=== PATIENT | female | born 1950 | race Caucasian/White ===

== ENCOUNTER 2017-01-10 10:31 | Emergency (ER) | payer MEDICARE ==
[2017-01-10 10:40] VITALS: BP 123/58; PULSE 105; RESP 18; TEMP 98.7
--- NOTE | 2017-01-10 11:06 | ED ---
Psych HPI - General Chief Complaint: Psychiatric Symptoms Stated Complaint: SUICIDAL, CONFUSION Time Seen by Provider: 01/10/17 10:52 Source: patient, RN notes reviewed Mode of arrival: ambulatory - History of Present Illness Initial Comments: 66 yo female presents to the emergency Department chief complaint of suicidal thoughts. Patient states she suffers from dementia. Patient states that about 3 weeks ago she was diagnosed with diabetes. Patient states since then she's noticed a decline in her mood. Patient states she's been more depression is not been doing her daily living. Patient states she has not been showering but she has been eating. Patient states that she checked her glucose this morning was 171. Patient states that she does have suicidal thoughts that come to her head and the wave-type sensation. Patient states she isn't having specific plan at this time. Patient does admit to history of hospitalization when she was 33 years old. Patient states that she is concerned due to her thoughts so she thought that she should be evaluated. Patient denies any recent fever, chills, shortness of breath, chest pain, back pain, abdominal pain, nausea vomiting, numbness or tingling, dysuria or hematuria, constipation or diarrhea, headaches or visual changes, or any other current symptoms. - Related Data Home Medications Medication Instructions Recorded Confirmed Citalopram Hydrobromide 40 mg PO QAM 02/02/16 01/10/17 [Citalopram HBr] Loratadine [Claritin] 10 mg PO DAILY 02/02/16 01/10/17 Budesonide [Pulmicort Flexhaler] 2 puff INHALATION RT-BID 01/10/17 01/10/17 Fluticasone Nasal [place] [Flonase 1 - 2 spray EA NOSTRIL DAILY PRN 01/10/1701/10 Nasal [place]] Glimepiride [Amaryl] 1 mg PO AC-BRKFST 01/10/17 01/10/17 LORazepam [Ativan] 0.5 mg PO QID PRN 01/10/17 01/10/17 Lisinopril [Prinivil] 5 mg PO DAILY 01/10/17 01/10/17 Montelukast Sodium [Singulair] 10 mg PO HS 01/10/17 01/10/17 Naproxen [Naprosyn] 500 mg PO Q12HR 01/10/17 01/10/17 metFORMIN HCL ER [Glucophage Xr] 1,000 mg PO DAILY 01/10/17 01/10/17 risperiDONE [RisperDAL] 1 mg PO HS 01/10/17 01/10/17 Allergies Allergy/AdvReac Type Severity Reaction Status Date / Time metronidazole [From Flagyl] Allergy Rash/Hives Verified 01/10/17 12:49 Sulfa (Sulfonamide Allergy Rash/Hives Verified 01/10/17 12:49 Antibiotics) Review of Systems ROS Statement: Those systems with pertinent positive or pertinent negative responses have been documented in the HPI. ROS Other: All systems not noted in ROS Statement are negative. Past Medical History Past Medical History: Asthma, Diabetes Mellitus, GERD/Reflux, Mitral Valve Prolapse (MVP) History of Any Multi-Drug Resistant Organisms: None Reported Past Surgical History: Cholecystectomy Additional Past Surgical History / Comment(s): Tumor removed from tibia (BENIGN) . Past Anesthesia/Blood Transfusion Reactions: No Reported Reaction Past Psychological History: Anxiety, Depression Smoking Status: Former smoker Past Alcohol Use History: None Reported Past Drug Use History: None Reported General Exam Limitations: no limitations General appearance: alert, in no apparent distress Neck exam: Present: normal inspection. Absent: tenderness, meningismus, lymphadenopathy Respiratory exam: Present: normal lung sounds bilaterally. Absent: respiratory distress, wheezes, rales, rhonchi, stridor Cardiovascular Exam: Present: regular rate, normal rhythm, normal heart sounds. Absent: systolic murmur, diastolic murmur, rubs, gallop, clicks GI/Abdominal exam: Present: soft, normal bowel sounds. Absent: distended, tenderness, guarding, rebound, rigid Neurological exam: Present: alert, oriented X3 Psychiatric exam: Present: depressed, suicidal ideation. Absent: homicidal ideation Skin exam: Present: warm, dry, intact, normal color. Absent: rash Course Vital Signs 01/10/17 10:37 Temperature 98.7 F Pulse Rate 105 H Respiratory 18 Rate Blood Pressure 123/58 O2 Sat by Pulse 96 Oximetry Medical Decision Making - Medical Decision Making 66-year-old female presents to the emergency Department chief complaint of suicidal thoughts and depression. At this time the patient does not appear to be suffering from a acute medical emergencies. At this time the patient is cleared to be evaluated by psychiatry. While here the patient did not have any suicidal thoughts patient denies a plan. She states they come and go in waves. At this time psychiatry evaluated her and they do recommend close follow-up and they have an appointment. At this time they did discuss return parameters and all questions. The patient and family stated they understood and they are in agreement with this plan. At this time they will be discharged home. The patient does contract to safety. - Lab Data Lab Results 01/10/17 Range/Units 10:57 Urine Opiates Screen Not Detected (NotDetected) Ur Oxycodone Screen Not Detected (NotDetected) Urine Methadone Screen Not Detected (NotDetected) Ur Propoxyphene Screen Not Detected (NotDetected) Ur Barbiturates Screen Not Detected (NotDetected) U Tricyclic Antidepress Not Detected (NotDetected) Ur Phencyclidine Scrn Not Detected (NotDetected) Ur Amphetamines Screen Not Detected (NotDetected) U Methamphetamines Scrn Not Detected (NotDetected) U Benzodiazepines Scrn Detected H (NotDetected) Urine Cocaine Screen Not Detected (NotDetected) U Marijuana (THC) Screen Not Detected (NotDetected) Disposition Clinical Impression: Depression Disposition: HOME SELF-CARE Condition: Stable Instructions: Depression (ED) Additional Instructions: Please use medication as discussed. Please follow up with family doctor if symptoms have not improved over the next two days. Please return to the emergency room if your symptoms increase or worsen or for any other concerns. Referrals: Roman Mcfarlane MD [Primary Care Provider] - 1-2 days Time of Disposition: 12:57
== END 2017-01-10 13:06 | disposition home or self-care (01) ==
LOC: EC 10:31
DX: F32.9 Major depressive disorder, single episode, unspecified (principal); F41.9 Anxiety disorder, unspecified; J45.909 Unspecified asthma, uncomplicated; E11.9 Type 2 diabetes mellitus without complications; Z87.891 Personal history of nicotine dependence; Z79.51 Long term (current) use of inhaled steroids; Z79.84 Long term (current) use of oral hypoglycemic drugs; Z79.899 Other long term (current) drug therapy; Z88.1 Allergy status to other antibiotic agents; Z88.2 Allergy status to sulfonamides
CPT/HCPCS: 80306; 82075; 99284

== ENCOUNTER 2017-04-15 06:40 | Emergency (ER) | payer MEDICARE ==
--- NOTE | 2017-04-15 08:24 | ED ---
Allergic Reaction HPI - General Chief complaint: Allergic Reaction Stated complaint: Possible Med Reaction Time Seen by Provider: 04/15/17 07:30 Source: patient, family, RN notes reviewed Mode of arrival: ambulatory Limitations: no limitations - History of Present Illness Initial Comments: This is a 66-year-old female who presents with complaints of a possible ALLERGIC reaction. She was placed on Cymbalta 1 week ago and states she is definitely able eat much the past several days she's been sleeping all the time for the past several days complains of sweats palpitations and perhaps some slight shortness of breath. She denies any overt fevers or chills cough or phlegm production dysuria hematuria any overt abdominal pain. She also states she was taken off of BuSpar one week ago after being out for a month. She does states she is a partial program at [facility]. Complaint: allergic reaction - Related Data Home Medications Medication Instructions Recorded Confirmed Citalopram Hydrobromide 40 mg PO QAM 02/02/16 04/15/17 [Citalopram HBr] Budesonide [Pulmicort Flexhaler] 2 puff INHALATION RT-BID 01/10/17 04/15/17 LORazepam [Ativan] 0.5 mg PO TID 01/10/17 04/15/17 Montelukast Sodium [Singulair] 10 mg PO HS 01/10/17 04/15/17 Albuterol Sulfate [Proair 1 puff INHALATION RT-Q6H PRN 04/15/17 04/15/17 Respiclick] Calcium Carbonate/Vitamin D3 1 tab PO DAILY 04/15/17 04/15/17 [Caltrate 600 Plus D3 Tablet] Ezetimibe/Simvastatin [Vytorin 1 tab PO DAILY 04/15/17 04/15/17 10-20 mg Tablet] Ferrous Sulfate [Feosol] 325 mg PO DAILY 04/15/17 04/15/17 Omeprazole 20 mg PO DAILY 04/15/17 04/15/17 Triamcinolone Acetonide [Nasacort] 1 spray EA NOSTRIL DAILY 04/15/17 04/15/17 valACYclovir [Valtrex] 500 mg PO DAILY 04/15/17 04/15/17 Allergies Allergy/AdvReac Type Severity Reaction Status Date / Time metronidazole [From Flagyl] Allergy Rash/Hives Verified 04/15/17 08:27 Sulfa (Sulfonamide Allergy Rash/Hives Verified 04/15/17 08:27 Antibiotics) Review of Systems ROS Statement: Those systems with pertinent positive or pertinent negative responses have been documented in the HPI. ROS Other: All systems not noted in ROS Statement are negative. Past Medical History Past Medical History: Asthma, Diabetes Mellitus, GERD/Reflux, Mitral Valve Prolapse (MVP) History of Any Multi-Drug Resistant Organisms: None Reported Past Surgical History: Cholecystectomy Additional Past Surgical History / Comment(s): Tumor removed from tibia (BENIGN) . Past Anesthesia/Blood Transfusion Reactions: No Reported Reaction Past Psychological History: Anxiety, Depression Smoking Status: Former smoker Past Alcohol Use History: None Reported Past Drug Use History: None Reported General Exam - General Exam Comments Initial Comments: This is a well-developed well-nourished awake alert oriented 3 female Limitations: no limitations General appearance: alert, anxious Head exam: Present: atraumatic, normocephalic, normal inspection Eye exam: Present: normal appearance, PERRL, EOMI. Absent: scleral icterus, conjunctival injection, periorbital swelling ENT exam: Present: mucous membranes dry Neck exam: Present: normal inspection. Absent: tenderness, meningismus, lymphadenopathy Respiratory exam: Present: normal lung sounds bilaterally. Absent: respiratory distress, wheezes, rales, rhonchi, stridor Cardiovascular Exam: Present: regular rate, other (Occasional extrasystoles are noted) GI/Abdominal exam: Present: soft, normal bowel sounds. Absent: distended, tenderness, guarding, rebound, rigid Extremities exam: Present: normal inspection, full ROM, normal capillary refill. Absent: tenderness, pedal edema, joint swelling, calf tenderness Back exam: Present: normal inspection Neurological exam: Present: alert, oriented X3, CN II-XII intact Psychiatric exam: Present: normal affect, normal mood Skin exam: Present: warm, dry, intact, normal color. Absent: rash Course Vital Signs 04/15/17 04/15/17 07:32 09:29 Temperature 97.1 F L 98.0 F Pulse Rate 65 92 Respiratory 20 18 Rate Blood Pressure 157/87 154/80 O2 Sat by Pulse 99 98 Oximetry Medical Decision Making - Medical Decision Making I did discuss findings with the patient and her . Patient does appear to be somewhat dehydrated clinically. She feels improved after fluids. She'll be discharged to follow-up with her psychiatrist for reevaluation of the Cymbalta. This is a potential cause of the patient's sleeping. He is aware that. She will contact him the patient and her are in agreement with this. - Lab Data Result diagrams: 04/15/17 07:56 04/15/17 07:56 Lab Results 04/15/17 04/15/17 04/15/17 Range/Units 07:56 07:56 07:56 WBC 7.5 (3.8-10.6) k/uL RBC 5.13 (3.80-5.40) m/uL Hgb 14.3 (11.4-16.0) gm/dL Hct 45.1 (34.0-46.0) % MCV 87.9 (80.0-100.0) fL MCH 27.8 (25.0-35.0) pg MCHC 31.6 (31.0-37.0) g/dL RDW 14.7 (11.5-15.5) % Plt Count 370 (150-450) k/uL Neutrophils % 70 % Lymphocytes % 17 % Monocytes % 7 % Eosinophils % 2 % Basophils % 1 % Neutrophils # 5.2 (1.3-7.7) k/uL Lymphocytes # 1.3 (1.0-4.8) k/uL Monocytes # 0.6 (0-1.0) k/uL Eosinophils # 0.2 (0-0.7) k/uL Basophils # 0.1 (0-0.2) k/uL Hypochromasia Slight Sodium 140 (137-145) mmol/L Potassium 4.9 (3.5-5.1) mmol/L Chloride 103 (98-107) mmol/L Carbon Dioxide 23 (22-30) mmol/L Anion Gap 14 mmol/L BUN 19 H (7-17) mg/dL Creatinine 0.60 (0.52-1.04) mg/dL Est GFR (MDRD) Af Amer >60 (>60 ml/min/1.73 sqM) Est GFR (MDRD) Non-Af >60 (>60 ml/min/1.73 sqM) Glucose 130 H (74-99) mg/dL Calcium 9.8 (8.4-10.2) mg/dL Magnesium 1.8 (1.6-2.3) mg/dL Total Bilirubin 0.5 (0.2-1.3) mg/dL AST 42 H (14-36) U/L ALT 45 (9-52) U/L Alkaline Phosphatase 78 (38-126) U/L Total Creatine Kinase 94 (30-135) U/L CK-MB (CK-2) 1.7 (0.0-2.4) ng/mL CK-MB (CK-2) Rel Index 1.8 Total Protein 8.0 (6.3-8.2) g/dL Albumin 4.6 (3.5-5.0) g/dL Amylase <30 L (30-110) U/L Lipase 135 (23-300) U/L TSH 1.160 (0.465-4.680) mIU/L Urine Color Urine Appearance (Clear) Urine pH (5.0-8.0) Ur Specific [place] (1.001-1.035) Urine Protein (Negative) Urine Glucose (UA) (Negative) Urine Ketones (Negative) Urine Blood (Negative) Urine Nitrite (Negative) Urine Bilirubin (Negative) Urine Urobilinogen (<2.0) mg/dL Ur Leukocyte Esterase (Negative) Urine RBC (0-5) /hpf Urine WBC (0-5) /hpf Ur Squamous Epith Cells (0-4) /hpf Calcium Oxalate Crystal (None) /hpf Urine Bacteria (None) /hpf Urine Mucus (None) /hpf 04/15/17 Range/Units 07:56 WBC (3.8-10.6) k/uL RBC (3.80-5.40) m/uL Hgb (11.4-16.0) gm/dL Hct (34.0-46.0) % MCV (80.0-100.0) fL MCH (25.0-35.0) pg MCHC (31.0-37.0) g/dL RDW (11.5-15.5) % Plt Count (150-450) k/uL Neutrophils % % Lymphocytes % % Monocytes % % Eosinophils % % Basophils % % Neutrophils # (1.3-7.7) k/uL Lymphocytes # (1.0-4.8) k/uL Monocytes # (0-1.0) k/uL Eosinophils # (0-0.7) k/uL Basophils # (0-0.2) k/uL Hypochromasia Sodium (137-145) mmol/L Potassium (3.5-5.1) mmol/L Chloride (98-107) mmol/L Carbon Dioxide (22-30) mmol/L Anion Gap mmol/L BUN (7-17) mg/dL Creatinine (0.52-1.04) mg/dL Est GFR (MDRD) Af Amer (>60 ml/min/1.73 sqM) Est GFR (MDRD) Non-Af (>60 ml/min/1.73 sqM) Glucose (74-99) mg/dL Calcium (8.4-10.2) mg/dL Magnesium (1.6-2.3) mg/dL Total Bilirubin (0.2-1.3) mg/dL AST (14-36) U/L ALT (9-52) U/L Alkaline Phosphatase (38-126) U/L Total Creatine Kinase (30-135) U/L CK-MB (CK-2) (0.0-2.4) ng/mL CK-MB (CK-2) Rel Index Total Protein (6.3-8.2) g/dL Albumin (3.5-5.0) g/dL Amylase (30-110) U/L Lipase (23-300) U/L TSH (0.465-4.680) mIU/L Urine Color Yellow Urine Appearance Cloudy H (Clear) Urine pH 5.5 (5.0-8.0) Ur Specific [place] 1.025 (1.001-1.035) Urine Protein 1+ H (Negative) Urine Glucose (UA) 2+ H (Negative) Urine Ketones Trace H (Negative) Urine Blood Negative (Negative) Urine Nitrite Negative (Negative) Urine Bilirubin Negative (Negative) Urine Urobilinogen <2.0 (<2.0) mg/dL Ur Leukocyte Esterase Large H (Negative) Urine RBC 3 (0-5) /hpf Urine WBC 37 H (0-5) /hpf Ur Squamous Epith Cells 9 H (0-4) /hpf Calcium Oxalate Crystal Moderate H (None) /hpf Urine Bacteria Rare H (None) /hpf Urine Mucus Many H (None) /hpf - EKG Data -: EKG Interpreted by Me EKG shows normal: sinus rhythm (Sinus rhythm rate of 84. Ago 128 QRS duration 68 QT/QTC of 370/437 occasional PACs noted.) - Radiology Data Radiology results: report reviewed (I did review the imaging and report no acute findings.), image reviewed Disposition Clinical Impression: Adverse reaction to drug, Dehydration Disposition: HOME SELF-CARE Condition: Good Instructions: Dehydration (ED) Additional Instructions: Follow-up with your psychiatrist regarding the Cymbalta dose. Referrals: Roman Mcfarlane MD [Primary Care Provider] - 1-2 days
[2017-04-15] MEDS ORDERED: SODIUM CHLORIDE 0.9% 1,000 ML IV STA ×3 (09:10→10:50)
--- NOTE | 2017-04-15 09:44 | XR ---
EXAMINATION TYPE: XR chest 2V DATE OF EXAM: 04/15/2017 COMPARISON: 02/01/15 HISTORY: Shortness of breath TECHNIQUE: Frontal and lateral views of the chest are obtained. FINDINGS: Scattered senescent parenchymal changes noted. Hyperinflation compatible with COPD. No evidence for infiltrate. No evidence for atelectasis. Heart size is stable. Mediastinal structures are stable and grossly unremarkable. No evidence for hilar prominence. Degenerative changes dorsal spine. IMPRESSION: 1. No evidence for acute pulmonary disease.
[2017-04-15 09:50] LABS: ALT 45 U/L (9-52); AST 42 U/L (14-36); Alkaline Phosphatase 78 U/L (38-126); Amylase <30 U/L (30-110); Anion Gap 14 mmol/L; Blood Urea Nitrogen 19 mg/dL (7-17); Calcium 9.8 mg/dL (8.4-10.2); Carbon Dioxide 23 mmol/L (22-30); Chloride 103 mmol/L (98-107); Glucose 130 mg/dL (74-99); Magnesium 1.8 mg/dL (1.6-2.3); Non-African American GFR(MDRD) >60 (>60 ml/min/1.73 sqM); Potassium 4.9 mmol/L (3.5-5.1); Sodium 140 mmol/L (137-145); Total Bilirubin 0.5 mg/dL (0.2-1.3)
[2017-04-15 09:56] LABS: Appearance,Urine Cloudy (Clear); Bacteria,Urine Rare /hpf; Bilirubin,Urine Negative (Negative); Calcium Oxalate Crystals,Urine Moderate /hpf; Glucose,Urine (UA) 2+ (Negative); Ketones,Urine Trace (Negative); Leukocyte Esterase,Urine Large (Negative); Mucus,Urine Many /hpf; Nitrite,Urine Negative (Negative); PH, Urine 5.5 (5.0-8.0); Particle Count 11197; Protein,Urine 1+ (Negative); RBC,Urine 3 /hpf (0-5); Specific Gravity,Urine 1.025 (1.001-1.035); Squamous Epithelial Cell,Urine 9 /hpf (0-4); UA Billing (MACRO vs. MICRO) MICRO; Urobilinogen,Urine <2.0 mg/dL (<2.0); WBC,Urine 37 /hpf (0-5)
[2017-04-15 10:07] LABS: Creatine Kinase MB 1.7 ng/mL (0.0-2.4)
[2017-04-15 10:10] LABS: Basophils # (A) 0.1 k/uL (0-0.2); Basophils % (A) 1 %; CH 27.5; CHCM 31.4; Eosinophils # (A) 0.2 k/uL (0-0.7); Eosinophils % (A) 2 %; HCT 45.1 % (34.0-46.0); HDW 2.58; HGB 14.3 gm/dL (11.4-16.0); Hypochromasia Slight; Luc # (Auto) 0.19; Luc % (Auto) 3; Lymphocytes # (A) 1.3 k/uL (1.0-4.8); Lymphocytes % (A) 17 %; MCH 27.8 pg (25.0-35.0); MCHC 31.6 g/dL (31.0-37.0); MCV 87.9 fL (80.0-100.0); Mean Platelet Volume 7.1; Monocytes # (A) 0.6 k/uL (0-1.0); Monocytes % (A) 7 %; Neutrophils # (A) 5.2 k/uL (1.3-7.7); Neutrophils % (A) 70 %; RBC 5.13 m/uL (3.80-5.40); RDW 14.7 % (11.5-15.5); WBC 7.5 k/uL (3.8-10.6); WBC (Perox) 6.85
[2017-04-15 12:14] VITALS: BP 181/88; PULSE 79; RESP 16; TEMP 97.1
== END 2017-04-15 12:21 | disposition home or self-care (01) ==
LOC: EC 06:40
DX: R00.2 Palpitations (principal); T43.295A Adverse effect of other antidepressants, initial encounter; E86.0 Dehydration; J45.909 Unspecified asthma, uncomplicated; K21.9 Gastro-esophageal reflux disease without esophagitis; F41.9 Anxiety disorder, unspecified; F32.9 Major depressive disorder, single episode, unspecified; Z88.1 Allergy status to other antibiotic agents; Z88.2 Allergy status to sulfonamides; Z79.51 Long term (current) use of inhaled steroids; Z79.899 Other long term (current) drug therapy; Z87.891 Personal history of nicotine dependence
CPT/HCPCS: 36415; 71020; 80053; 81001; 82150; 82550; 82553; 83690; 83735; 84443; 85025; 93005; 96360; 96361; 99285

== ENCOUNTER 2017-05-18 16:19 | Inpatient (IN) | payer MEDICARE ==
--- NOTE | 2017-05-18 17:16 | ED ---
General Adult HPI - General Chief complaint: Psychiatric Symptoms Stated complaint: Mental Health Time Seen by Provider: 05/18/17 16:25 Source: patient, RN notes reviewed Mode of arrival: ambulatory Limitations: no limitations - History of Present Illness Initial comments: This is a 66-year-old female with past medical history significant for depression and anxiety. Patient also states he has been diagnosed with OCD. Patient states she was recently in the hospital and came home about 5 days ago. Patient states since yesterday she's been having suicidal and homicidal thoughts. Patient states that she is afraid to be alone because she thinks she might harm her self and even though she doesn't want harm anybody else and doesn 't think she will she does know why she continues to have those thoughts. Patient denies any attempt at harming herself or anyone else. Patient denies any physical complaints today patient denies headache patient denies numbness weakness. Patient denies chest pain difficulty breathing or shortness of breath. Patient denies palpitations. Patient denies abdominal pain patient denies nausea vomiting diarrhea. - Related Data Home Medications Medication Instructions Recorded Confirmed Citalopram Hydrobromide 40 mg PO DAILY 02/02/16 05/18/17 [Citalopram HBr] Budesonide [Pulmicort Flexhaler] 2 puff INHALATION RT-BID 01/10/17 05/18/17 Albuterol Sulfate [Proair 1 puff INHALATION RT-Q6H PRN 04/15/17 05/18/17 Respiclick] valACYclovir [Valtrex] 500 mg PO DAILY 04/15/17 05/18/17 Cetirizine HCl [Zyrtec] 10 mg PO DAILY 05/18/17 05/18/17 Fluticasone Nasal [place] [Flonase 1 spray EA NOSTRIL DAILY 05/18/17 05/18/17 Nasal [place]] Lisinopril [Zestril] 5 mg PO DAILY 05/18/17 05/18/17 Naproxen Sodium [Naproxen Sodium 550 mg PO DAILY 05/18/17 05/18/17 DS] Omeprazole Magnesium [Prilosec OTC] 20 mg PO DAILY 05/18/17 05/18/17 busPIRone HCL 15 mg PO TID 05/18/17 05/18/17 clomiPRAMINE [Anafranil] 150 mg PO HS 05/18/17 05/18/17 Allergies Allergy/AdvReac Type Severity Reaction Status Date / Time lactose Allergy Unknown Verified 05/18/17 17:36 levofloxacin [From Levaquin] Allergy Rash/Hives Verified 05/18/17 17:36 metronidazole [From Flagyl] Allergy Rash/Hives Verified 05/18/17 17:36 Sulfa (Sulfonamide Allergy Rash/Hives Verified 05/18/17 17:36 Antibiotics) metformin AdvReac Nausea & Verified 05/18/17 17:36 Vomiting & Diarrhea Review of Systems ROS Statement: Those systems with pertinent positive or pertinent negative responses have been documented in the HPI. ROS Other: All systems not noted in ROS Statement are negative. 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 Past Anesthesia/Blood Transfusion Reactions: No Reported Reaction Past Psychological History: Anxiety, Depression Smoking Status: Former smoker Past Alcohol Use History: None Reported Past Drug Use History: None Reported General Exam - General Exam Comments Initial Comments: GENERAL: Patient is well-developed and well-nourished. Patient is nontoxic and well- hydrated and is in mild distress. ENT: Neck is soft and supple. No significant lymphadenopathy is noted. Oropharynx is clear. Moist mucous membranes. Neck has full range of motion without eliciting any pain. EYES: The sclera were anicteric and conjunctiva were pink and moist. Extraocular movements were intact and pupils were equal round and reactive to light. Eyelids were unremarkable. PULMONARY: Unlabored respirations. Good breath sounds bilaterally. No audible rales rhonchi or wheezing was noted. CARDIOVASCULAR: There is a regular rate and rhythm without any murmurs gallops or rubs. ABDOMEN: Soft and nontender with normal bowel sounds. No palpable organomegaly was noted. There is no palpable pulsatile mass. SKIN: Skin is clear with no lesions or rashes and otherwise unremarkable. NEUROLOGIC: Patient is alert and oriented x3. Cranial nerves II through XII are grossly intact. Motor and sensory are also intact. Normal speech, volume and content. Symmetrical smile. MUSCULOSKELETAL: Normal extremities with adequate strength and full range of motion. No lower extremity swelling or edema. No calf tenderness. LYMPHATICS: No significant lymphadenopathy is noted PSYCHIATRIC: Normal psychiatric evaluation. Normal interpersonal interactions appears functionally intact in deals appropriately with others. No signs of depression. No signs of anxiety. Limitations: no limitations Course Vital Signs 05/18/17 16:21 Temperature 97.8 F Pulse Rate 95 Respiratory 20 Rate Blood Pressure 131/70 O2 Sat by Pulse 98 Oximetry Medical Decision Making - Lab Data Lab Results 05/18/17 Range/Units 17:25 Urine Opiates Screen Not Detected (NotDetected) Ur Oxycodone Screen Not Detected (NotDetected) Urine Methadone Screen Not Detected (NotDetected) Ur Propoxyphene Screen Not Detected (NotDetected) Ur Barbiturates Screen Not Detected (NotDetected) U Tricyclic Antidepress Not Detected (NotDetected) Ur Phencyclidine Scrn Not Detected (NotDetected) Ur Amphetamines Screen Not Detected (NotDetected) U Methamphetamines Scrn Not Detected (NotDetected) U Benzodiazepines Scrn Not Detected (NotDetected) Urine Cocaine Screen Not Detected (NotDetected) U Marijuana (THC) Screen Not Detected (NotDetected) Disposition Clinical Impression: Depression, Suicidal ideation Disposition: ADMITTED IP TO THIS [facility] Referrals: Roman Mcfarlane MD [Primary Care Provider] - 1-2 days Time of Disposition: 20:14
[2017-05-18] MEDS ORDERED: MAGNESIUM HYDROXIDE 2,400 MG/10 ML CUP PO PRN (20:28)
[2017-05-18] MEDS ORDERED: ACETAMINOPHEN TAB 325 MG TAB PO PRN (20:28)
[2017-05-18] MEDS: busPIRone HCl 5 MG TAB PO SCH (21:23)
[2017-05-18] MEDS: NAPROXEN 250 MG TAB PO SCH (21:23)
[2017-05-18 22:23] VITALS: BMI 28.9
[2017-05-19] MEDS ORDERED: CITALOPRAM HYDROBROMIDE 20 MG TAB PO SCH (09:00)
[2017-05-19] MEDS: busPIRone HCl 5 MG TAB PO SCH (09:02)
[2017-05-19] MEDS: LORATADINE 10 MG TAB PO SCH (09:03)
[2017-05-19] MEDS: FLUTICASONE 50MCG/SPRAY NASAL 16GM EA NOSTRIL SCH (09:03)
[2017-05-19] MEDS: PANTOPRAZOLE 40 MG TABLET PO SCH (09:03)
[2017-05-19] MEDS: LISINOPRIL 5 MG TAB PO SCH (09:03)
[2017-05-19] MEDS: NAPROXEN 250 MG TAB PO SCH ×2 (09:04→21:06)
[2017-05-19] MEDS: valACYclovir 500 MG TAB PO SCH (09:04)
[2017-05-19 09:47] LABS: Basophils # (A) 0.1 k/uL (0-0.2); Basophils % (A) 2 %; CH 27.3; CHCM 30.4; Eosinophils # (A) 0.4 k/uL (0-0.7); Eosinophils % (A) 6 %; HCT 43.3 % (34.0-46.0); HDW 2.52; HGB 12.9 gm/dL (11.4-16.0); Hypochromasia Moderate; Luc # (Auto) 0.18; Luc % (Auto) 3; Lymphocytes # (A) 1.3 k/uL (1.0-4.8); Lymphocytes % (A) 24 %; MCHC 29.9 g/dL (31.0-37.0); MCV 90.5 fL (80.0-100.0); Mean Platelet Volume 6.2; Monocytes # (A) 0.4 k/uL (0-1.0); Monocytes % (A) 7 %; Neutrophils # (A) 3.3 k/uL (1.3-7.7); Neutrophils % (A) 59 %; RBC 4.78 m/uL (3.80-5.40); RDW 13.9 % (11.5-15.5); WBC 5.7 k/uL (3.8-10.6); WBC (Perox) 5.39
[2017-05-19 10:09] LABS: ALT 40 U/L (9-52); AST 28 U/L (14-36); Alkaline Phosphatase 77 U/L (38-126); Anion Gap 15 mmol/L; Blood Urea Nitrogen 30 mg/dL (7-17); Calcium 9.5 mg/dL (8.4-10.2); Carbon Dioxide 24 mmol/L (22-30); Chloride 100 mmol/L (98-107); Glucose 215 mg/dL (74-99); Non-African American GFR(MDRD) 55 (>60 ml/min/1.73 sqM); Potassium 4.8 mmol/L (3.5-5.1); Sodium 139 mmol/L (137-145); Total Bilirubin 0.3 mg/dL (0.2-1.3); Total Protein 7.4 g/dL (6.3-8.2)
[2017-05-19 10:36] LABS: Appearance,Urine Cloudy (Clear); Bacteria,Urine Rare /hpf; Bilirubin,Urine Negative (Negative); Glucose,Urine (UA) Negative (Negative); Ketones,Urine Negative (Negative); Leukocyte Esterase,Urine Large (Negative); Mucus,Urine Occasional /hpf; Nitrite,Urine Negative (Negative); PH, Urine 5.5 (5.0-8.0); Particle Count 5174; Protein,Urine Trace (Negative); RBC,Urine 1 /hpf (0-5); Specific Gravity,Urine 1.021 (1.001-1.035); Squamous Epithelial Cell,Urine 4 /hpf (0-4); UA Billing (MACRO vs. MICRO) MICRO; Urobilinogen,Urine <2.0 mg/dL (<2.0); WBC,Urine 114 /hpf (0-5)
[2017-05-19 10:58] LABS: Glucose,Whole Blood 159 mg/dL (75-99)
[2017-05-19 12:10] LABS: Glucose,Whole Blood 107 mg/dL (75-99)
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
--- NOTE | 2017-05-19 15:29 | P.MDCNMH ---
History of Present Illness H&P Date: 05/19/17 Chief Complaint: Bizarre thoughts Patient is a 66-year-old female with a known history of hypertension, anxiety and depression, and OCD came to the hospital with the complaints of worsening bizarre ideas and hallucinations. Patient also having thoughts of suicidal and homicidal ideation. Patient was told by her mental health advisor to come back to the hospital if she gets these Symptoms. Patient was recently discharged from the hospital. She was at [facility] and also sent [facility]. She is afraid to be alone because she thinks she might harm herself and even though she does not want to harm anybody else. Patient otherwise denied any complaints of chest pain or short of breath. No nausea vomiting abdominal pain. No fever no chills. Patient does not have any history of coronary disease. Patient says that she has prediabetes and is not no medication at this time. Patient denied any dizziness or lightheadedness. Patient was at the group discussion today and about to pass out. Her BuSpar has been changed to Celexa now. Otherwise patient was also found have acute urinary tract infection and will be started on antibiotics. Patient does have multiple ALLERGIES as well. Patient thinks she was already on now antibiotics when she was discharged. Patient denied any dysuria or hematuria. Review of Systems Constitutional: Patient denies any fever or chills . No generalized weakness or weight loss. Abdomen: Patient denied nausea vomiting and diarrhea and abdominal pain. Cardiovascular: Patient denies any chest pain or short of breath no palpitations. Respiratory: patient denied any cough is from production. No shortness of breath Neurologic: Patient denied any numbness or tingling headache. Musculoskeletal: Patient denies any complaints of joint swelling or deformity. Skin: Negative Psychiatric: Negative Endocrine: No heat or cold intolerance. No recent weight gain. Genitourinary: No dysuria or hematuria. All other 14 point ROS negative except the above Past Medical History Past Medical History: Asthma, Diabetes Mellitus, GERD/Reflux, Mitral Valve Prolapse (MVP) Additional Past Medical History / Comment(s): OCD History of Any Multi-Drug Resistant Organisms: None Reported Past Surgical History: Cholecystectomy Additional Past Surgical History / Comment(s): Tumor removed from tibia (BENIGN) . Past Anesthesia/Blood Transfusion Reactions: No Reported Reaction Past Psychological History: Anxiety, Depression Smoking Status: Never smoker Past Alcohol Use History: None Reported Additional Past Alcohol Use History / Comment(s): SMOKED FOR 18 YRS, LESS THAN 1 PPD, QUIT 37 YRS AGO (1976). Past Drug Use History: None Reported Medications and Allergies Home Medications Medication Instructions Recorded Confirmed Type Citalopram Hydrobromide 40 mg PO DAILY 02/02/16 05/18/17 History [Citalopram HBr] Budesonide [Pulmicort Flexhaler] 2 puff INHALATION RT-BID 01/10/17 05/18/17 History Albuterol Sulfate [Proair 1 puff INHALATION RT-Q6H PRN 04/15/17 05/18/17 History Respiclick] valACYclovir [Valtrex] 500 mg PO DAILY 04/15/17 05/18/17 History Cetirizine HCl [Zyrtec] 10 mg PO DAILY 05/18/17 05/18/17 History Fluticasone Nasal [place] [Flonase 1 spray EA NOSTRIL DAILY 05/18/17 05/18/17 History Nasal [place]] Lisinopril [Zestril] 5 mg PO DAILY 05/18/17 05/18/17 History Naproxen Sodium [Naproxen Sodium 550 mg PO DAILY 05/18/17 05/18/17 History DS] Omeprazole Magnesium [Prilosec OTC] 20 mg PO DAILY 05/18/17 05/18/17 History busPIRone HCL 15 mg PO TID 05/18/17 05/18/17 History clomiPRAMINE [Anafranil] 150 mg PO HS 05/18/17 05/18/17 History Allergies Allergy/AdvReac Type Severity Reaction Status Date / Time lactose Allergy Unknown Verified 05/18/17 17:36 levofloxacin [From Levaquin] Allergy Rash/Hives Verified 05/18/17 17:36 metronidazole [From Flagyl] Allergy Rash/Hives Verified 05/18/17 17:36 Sulfa (Sulfonamide Allergy Rash/Hives Verified 05/18/17 17:36 Antibiotics) metformin AdvReac Nausea & Verified 05/18/17 17:36 Vomiting & Diarrhea Physical Exam Vitals: Vital Signs Temp Pulse Pulse Resp BP BP Pulse Ox 05/19/17 10:46 97.8 F 82 20 119/66 97 05/19/17 09:11 98.4 F 106 H 20 107/64 98 05/19/17 01:40 EST 98.3 F 93 18 103/57 05/18/17 22:06 97.9 F 72 16 111/63 98 05/18/17 20:33 86 12 123/72 97 Intake and Output 05/19/17 05/19/17 05/19/17 06:59 14:59 22:59 Other: Weight 74.2 kg Patient Weight 05/20/17 06:59 Weight 74.2 kg PHYSICAL EXAMINATION: Patient is lying in the bed comfortably, no acute distress, awake alert and oriented.. HEENT: Normocephalic. Neck is supple. Pupils reactive. Nostrils clear. Oral cavity is moist. Ears reveal no drainage. Neck reveals no JVD, carotid bruits, or thyromegaly. CHEST EXAMINATION: Trachea is central. Symmetrical expansion. Lung langford clear to auscultation and percussion. CARDIAC: Normal S1, S2 with no gallops. No murmurs ABDOMEN: Soft. Bowel sounds normal. No organomegaly. No abdominal bruits. Extremities: reveal no edema. No clubbing or cyanosis Neurologically awake, alert, oriented x3 with well-coordinated movements. No focal deficits noted Skin: No rash or skin lesions. Psychiatric: Operative. Nonsuicidal Musculoskeletal: No joint swelling or deformity. Normal range of motion. Cranial Nerve Examination - Cranial Nerves Cranial Nerve I- Olfactory: Intact Cranial Nerve II- Optic: Intact Cranial Nerve III- Oculomotor: Intact Cranial Nerve IV- Trochlear: Intact Cranial Nerve V- Trigeminal: Intact Cranial Nerve - Abducens: Intact Cranial Nerve VII- Facial: Intact Cranial Nerve VIII- Auditory: Intact Cranial Nerve IX- Glossopharyngeal: Intact Cranial Nerve X- Vagus: Intact Cranial Nerve XI- Accessory: Intact Cranial Nerve XII- Hypoglossal: Intact Results CBC & Chem 7: 05/19/17 09:16 05/19/17 09:16 Labs: Abnormal Lab Results - Last 24 Hours (Table) 05/19/17 05/19/17 05/19/17 Range/Units 08:50 09:16 09:16 MCHC 29.9 L (31.0-37.0) g/dL BUN 30 H (7-17) mg/dL Glucose 215 H (74-99) mg/dL POC Glucose (mg/dL) (75-99) mg/dL Urine Appearance Cloudy H (Clear) Urine Protein Trace H (Negative) Ur Leukocyte Esterase Large H (Negative) Urine WBC 114 H (0-5) /hpf Urine Bacteria Rare H (None) /hpf Hyaline Casts 3 H (0-2) /lpf Urine Mucus Occasional H (None) /hpf 05/19/17 05/19/17 Range/Units 10:42 12:08 MCHC (31.0-37.0) g/dL BUN (7-17) mg/dL Glucose (74-99) mg/dL POC Glucose (mg/dL) 159 H 107 H (75-99) mg/dL Urine Appearance (Clear) Urine Protein (Negative) Ur Leukocyte Esterase (Negative) Urine WBC (0-5) /hpf Urine Bacteria (None) /hpf Hyaline Casts (0-2) /lpf Urine Mucus (None) /hpf Assessment and Plan Assessment: #1 acute urinary tract infection. #2 near syncope likely due to infection versus orthostatic. Currently asymptomatic #3 depression and anxiety. With suicidal ideation on admission #4 hypertension #5. pre Diabetes. Not on any medication #6 OCD #7 multiple antibiotic ALLERGIES Plan: Patient will be started on antibiotics in the form of Augmentin for 3 days. Will get urine culture prior to antibiotic initiation. Orthostatic vitals will be done. We'll continue with home blood pressure medications and further psychiatric management. We will follow up closely. Further recommendations based on the clinical course. Time with Patient: Greater than 30
[2017-05-19] MEDS ORDERED: SODIUM CHLORIDE 0.9% 500 ML IV ONE (17:09)
[2017-05-19 17:19] LABS: Glucose,Whole Blood 121 mg/dL (75-99)
[2017-05-19 20:20] LABS: Glucose,Whole Blood 127 mg/dL (75-99)
[2017-05-19] MEDS: AMOXIC-POT CLAV 500-125 MG 1 EACH TAB PO SCH (21:07)
[2017-05-20 06:48] LABS: Glucose,Whole Blood 133 mg/dL (75-99)
[2017-05-20] MEDS: AMOXIC-POT CLAV 500-125 MG 1 EACH TAB PO SCH ×2 (08:47→20:59)
[2017-05-20] MEDS: NAPROXEN 250 MG TAB PO SCH ×2 (08:47→20:59)
[2017-05-20] MEDS: FLUTICASONE 50MCG/SPRAY NASAL 16GM EA NOSTRIL SCH (08:47)
[2017-05-20] MEDS: LORATADINE 10 MG TAB PO SCH (08:48)
[2017-05-20] MEDS: CITALOPRAM HYDROBROMIDE 20 MG TAB PO SCH (08:48)
[2017-05-20] MEDS: PANTOPRAZOLE 40 MG TABLET PO SCH (08:48)
[2017-05-20] MEDS: valACYclovir 500 MG TAB PO SCH (08:49)
[2017-05-20] MEDS: LISINOPRIL 5 MG TAB PO SCH (11:22)
--- NOTE | 2017-05-20 12:06 | PN ---
PROGRESS NOTE DATE OF SERVICE: 05/20/2017 PRESENTING COMPLAINT: Orthostatic. INTERVAL HISTORY: This is a 66-year-old patient who has a psych history of obsessive-compulsive disorder, major depressive disorder, recurrent. Admitted for the same. Patient has been having a lot of anxiety for a few weeks and has lost about 20 pounds. Patient has been orthostatic, given IV fluids yesterday. Also found to have a UTI. She states that her appetite has picked up in the lasts 3 - 4 days. REVIEW OF SYSTEMS: Done for constitutional, cardiovascular, GI, pulmonary; relevant findings as above. CURRENT MEDICATIONS: Reviewed that include Augmentin. PHYSICAL EXAMINATION: Temperature 97.8, pulse 87, respirations 16. Patient is orthostatic with lying 162/78 and standing up 120/72. ASSESSMENT: 1. Obsessive-compulsive disorder/major depressive disorder, recurrent. 2. Orthostatic hypotension from patient losing weight the last few weeks. 3. Acute urinary tract infection. 4. Gastroesophageal reflux disease. 5. Mild persistent asthma. PLAN: As patient's blood pressure is running low, will discontinue patient's Zestril. At this point will put the patient on a regular diet with no salt restriction. Also Claritin will be discontinued. Hoping with this, patient's orthostatic symptoms will be better. Also GONZALO stockings have been ordered. Care was discussed with the patient. MMODL / IJN: [id number] /
[2017-05-20 12:48] LABS: Glucose,Whole Blood 103 mg/dL (75-99)
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
[2017-05-20 16:14] LABS: Glucose,Whole Blood 132 mg/dL (75-99)
[2017-05-20 19:55] LABS: Glucose,Whole Blood 155 mg/dL (75-99)
[2017-05-20] MEDS: BUDESONIDE 1 MG/2 ML NEBU INHALATION SCH ×2 (22:00→22:01)
[2017-05-21 06:20] LABS: Glucose,Whole Blood 128 mg/dL (75-99)
[2017-05-21] MEDS: AMOXIC-POT CLAV 500-125 MG 1 EACH TAB PO SCH ×2 (08:49→21:04)
[2017-05-21] MEDS: FLUTICASONE 50MCG/SPRAY NASAL 16GM EA NOSTRIL SCH (08:49)
[2017-05-21] MEDS: PANTOPRAZOLE 40 MG TABLET PO SCH (08:51)
[2017-05-21] MEDS: valACYclovir 500 MG TAB PO SCH (08:51)
[2017-05-21] MEDS: CITALOPRAM HYDROBROMIDE 20 MG TAB PO SCH (08:51)
[2017-05-21] MEDS: NAPROXEN 250 MG TAB PO SCH ×2 (08:52→21:05)
[2017-05-21] MEDS: MAG HYDROX/AL HYDROX/SIMETH 30 ML CUP PO PRN ×2 (11:43→17:45)
[2017-05-21] MEDS ORDERED: clonazePAM 0.5 MG TAB PO STA (11:51)
[2017-05-21 12:46] LABS: Glucose,Whole Blood 115 mg/dL (75-99)
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
[2017-05-21] MEDS: clonazePAM 0.5 MG TAB PO PRN (17:44)
[2017-05-21 17:47] LABS: Glucose,Whole Blood 130 mg/dL (75-99)
[2017-05-21 20:12] LABS: Glucose,Whole Blood 112 mg/dL (75-99)
[2017-05-22 06:36] LABS: Glucose,Whole Blood 128 mg/dL (75-99)
[2017-05-22] MEDS: valACYclovir 500 MG TAB PO SCH (08:37)
[2017-05-22] MEDS: NAPROXEN 250 MG TAB PO SCH ×2 (08:37→21:08)
[2017-05-22] MEDS: CITALOPRAM HYDROBROMIDE 20 MG TAB PO SCH (08:38)
[2017-05-22] MEDS: AMOXIC-POT CLAV 500-125 MG 1 EACH TAB PO SCH ×2 (08:38→21:08)
[2017-05-22] MEDS: PANTOPRAZOLE 40 MG TABLET PO SCH (08:38)
[2017-05-22] MEDS: FLUTICASONE 50MCG/SPRAY NASAL 16GM EA NOSTRIL SCH (08:40)
[2017-05-22] MEDS: clonazePAM 0.5 MG TAB PO PRN (08:45)
[2017-05-22 12:17] LABS: Glucose,Whole Blood 93 mg/dL (75-99)
[2017-05-22] MEDS: FAMOTIDINE 20 MG TAB PO SCH (12:55)
[2017-05-22] MEDS: BUDESONIDE 1 MG/2 ML NEBU INHALATION SCH ×2 (15:37→15:38)
[2017-05-22 16:57] LABS: Glucose,Whole Blood 95 mg/dL (75-99)
[2017-05-22 20:11] LABS: Glucose,Whole Blood 124 mg/dL (75-99)
--- NOTE | 2017-05-22 20:20 | P.PN ---
Subjective Principal diagnosis: OCD VITALS: 3 05/22/17 05/22/17 05/22/17 06:41 11:17 14:12 Temperature 98.5 F Pulse Rate [ 88 91 95 Right] Respiratory 16 18 16 Rate Blood Pressure 121/70 [Right Arm Sitting] Blood Pressure 134/74 93/53 [Right Arm Standing] O2 Sat by Pulse 96 Oximetry INTERVAL HISTORY: Patient is a 66-year-old female hospitalized for intrusive thoughts and imagery of self-harm and others. Patient reports having an intrusive thought this morning of stabbing someone and became scared and was able to distract herself. This morning patient reports two distressful intrusive thoughts one is the reoccurring thought of harming/stabbing others. The other was patient harming a baby. Patient denies any intrusive imagery with said thoughts. These thoughts are intrusive and detailed. Patient has notable psychomotor activation when asked how detailed these thoughts are. These thoughts are formulate intrusive details how it would feel, smell, sound. These thoughts are unwanted and highly disrupting. Patient states when she went to group therapy this morning the voices of the group and her participating was sufficient to silence said intrusive thoughts. Patient that such thoughts make her think life isn't worth living sometimes and she feels guilty despite knowing she should not. MENTAL STATUS EXAM: * Appearance: alert, well groomed, appears stated age, steady gait * Behavior: psychomotor agitation+++, no abnormal movements, fair eye contact * Attitude: cooperative * Speech: normal rate, rhythm, fluency, articulation, volume, and prosody; primary language: Martiniquais * Mood: anxious * Affect: congruent, reactive * Thought processes: linear, organized * Thought content: patient does not appear to be responding to internal stimuli ; patient denies auditory and visual hallucinations, no delusions appreciated, obsessions with homicidal content * Insight: fair * Judgment: fair * Cognitive: oriented to all 3 spheres, average intelligence PLAN: * Continue hospitalization, patient continues to have intrusive obsessional thoughts with now homicidal content * * Continue Anafranil to 75-mg PO QHS and continue Celexa with plan of taper Celexa OP once patient is no longer having discontinuation symptoms * * Discontinue Klonopin 0.25-mg PO PRN, discontinuation syndrome has mostly resolved * * Medicine contacted again about HGA1C; patient started on Amaryl for DM type II * Diet ordered changed to be carbohydrate controlled * * Continue fall precautions and vitals Q-HRS * * SW will arrange a family meeting prior to discharge * Patient encouraged to attend group, recreational, and activity therapies * Objective - Vital Signs Vital signs: Vital Signs Temp 98.5 F 05/22/17 06:41 Pulse 95 05/22/17 14:12 Resp 16 05/22/17 14:12 BP 93/53 05/22/17 14:12 Pulse Ox 96 05/22/17 11:17 - Labs CBC & Chem 7: 05/19/17 09:16 05/21/17 10:27 Labs: Abnormal Lab Results - Last 24 Hours (Table) 05/21/17 05/22/17 05/22/17 Range/Units 20:09 06:33 20:10 POC Glucose (mg/dL) 112 H 128 H 124 H (75-99) mg/dL
[2017-05-23 06:28] LABS: Glucose,Whole Blood 129 mg/dL (75-99)
[2017-05-23 06:52] VITALS: TEMP 97.7
[2017-05-23] MEDS: FLUTICASONE 50MCG/SPRAY NASAL 16GM EA NOSTRIL SCH (08:55)
[2017-05-23] MEDS: NAPROXEN 250 MG TAB PO SCH ×2 (08:55→20:51)
[2017-05-23] MEDS: GLIMEPIRIDE 1 MG TAB PO SCH (08:55)
[2017-05-23] MEDS: valACYclovir 500 MG TAB PO SCH (08:56)
[2017-05-23] MEDS: CITALOPRAM HYDROBROMIDE 20 MG TAB PO SCH (08:57)
[2017-05-23] MEDS ORDERED: FAMOTIDINE 20 MG TAB PO SCH (09:00)
[2017-05-23] MEDS: FAMOTIDINE 20 MG TAB PO SCH (09:20)
[2017-05-23] MEDS: PANTOPRAZOLE 40 MG TABLET PO SCH (09:20)
[2017-05-23] MEDS ORDERED: clonazePAM 0.5 MG TAB PO STA (11:04)
[2017-05-23 12:07] LABS: Glucose,Whole Blood 85 mg/dL (75-99)
[2017-05-23 17:22] LABS: Glucose,Whole Blood 104 mg/dL (75-99)
[2017-05-23 20:18] LABS: Glucose,Whole Blood 113 mg/dL (75-99)
--- NOTE | 2017-05-23 21:20 | P.PN ---
Subjective Progress Note Date: 05/23/17 Principal diagnosis: OCD VITALS: 3 05/23/17 06:49 Temperature 97.7 F Pulse Rate [ 82 Standing] Respiratory 16 Rate Blood Pressure 117/57 [Right Arm Standing] INTERVAL HISTORY: Patient report improvement in obsessional thoughts today with only a brief occurrence in the morning that quickly faded. MENTAL STATUS EXAM: * Appearance: alert, well groomed, appears stated age, steady gait * Behavior: psychomotor agitation+++, no abnormal movements, fair eye contact * Attitude: cooperative * Speech: normal rate, rhythm, fluency, articulation, volume, and prosody; primary language: Ivorian * Mood: anxious * Affect: congruent, reactive * Thought processes: linear, organized * Thought content: patient does not appear to be responding to internal stimuli ; patient denies auditory and visual hallucinations, no delusions appreciated, obsessions with homicidal content have improved * Insight: fair * Judgment: fair * Cognitive: oriented to all 3 spheres, average intelligence PLAN: * Continue hospitalization, provisional discharge tomorrow * * Continue Anafranil to 75-mg PO QHS and continue Celexa with plan of taper Celexa OP once patient is no longer having discontinuation symptoms * * Klonopin 0.25-mg PO x 1 dose for breakthrough withdrawal symptoms, final dose * * Medicine contacted again about HGA1C; patient started on Amaryl for DM type II * Diet ordered changed to be carbohydrate controlled * * Continue fall precautions and vitals Q-shift * * SW will arrange a family meeting prior to discharge * Patient encouraged to attend group, recreational, and activity therapies * Objective - Vital Signs Vital signs: Vital Signs Temp 97.7 F 05/23/17 06:49 Pulse 82 05/23/17 06:49 Resp 16 05/23/17 06:49 BP 117/57 05/23/17 06:49 Pulse Ox 98 05/22/17 21:00 - Labs CBC & Chem 7: 05/19/17 09:16 05/21/17 10:27 Labs: Abnormal Lab Results - Last 24 Hours (Table) 05/23/17 05/23/17 05/23/17 Range/Units 06:26 17:21 20:17 POC Glucose (mg/dL) 129 H 104 H 113 H (75-99) mg/dL
[2017-05-24 06:15] LABS: Glucose,Whole Blood 132 mg/dL (75-99)
[2017-05-24 07:00] VITALS: BP 109/63; PULSE 85; RESP 14
[2017-05-24] MEDS: FLUTICASONE 50MCG/SPRAY NASAL 16GM EA NOSTRIL SCH (08:21)
[2017-05-24] MEDS: NAPROXEN 250 MG TAB PO SCH (08:22)
[2017-05-24] MEDS: PANTOPRAZOLE 40 MG TABLET PO SCH (08:22)
[2017-05-24] MEDS: CITALOPRAM HYDROBROMIDE 20 MG TAB PO SCH (08:22)
[2017-05-24] MEDS: valACYclovir 500 MG TAB PO SCH (08:22)
[2017-05-24] MEDS: GLIMEPIRIDE 1 MG TAB PO SCH ×2 (08:25→09:23)
[2017-05-24] MEDS ORDERED: clonazePAM 0.5 MG TAB PO STA (11:35)
[2017-05-24 13:07] LABS: Glucose,Whole Blood 89 mg/dL (75-99)
--- NOTE | 2017-06-17 17:15 | PN ---
PROGRESS NOTE ADDENDUM: DATE OF SERVICE: 05/20/17 PHYSICAL EXAM: Eyes pupils equal. Conjunctivae normal. Neck JVD not raised. Mass not palpable. Respiratory effort normal. Lungs slightly decreased breath sounds. Cardiovascular 1st and 2nd sounds normal. No edema. ABDOMEN: Soft nontender. Liver and spleen not palpable. MMODL / IJN: [id number] /
--- NOTE | 2017-06-23 21:27 | P.DS ---
Providers Date of admission: 05/18/17 20:21 Expected date of discharge: 05/24/17 Attending physician: Kushal Lee DO Consults: 05/18/17 20:28 Consult Physician Routine Consulting Provider: Rachid Almonte Consult Reason/Comments: H and P Do you want consulting provider notified?: Yes Primary care physician: Roman Mcfarlane - Discharge Diagnosis(es) (1) OCD (obsessive compulsive disorder) Status: Acute (2) Major depressive disorder, recurrent episode, severe with anxious distress Status: Acute Hospital Course: HOSPITAL COURSE: * Legal status at discharge: Voluntary * Compliant with medications: Yes * Reported adverse side effects: Yes, orthostasis, with combination of Celexa and Anafranil improved at discharge by decreased dose of both * Required restraints/seclusion: No * Emergency Medication administered: No * Attended group, recreational, activity therapies: Consistently Patient is a 66-year-old female who was admitted to the inpatient unit due to homicidal obsessions of harming family members such as her brother, , and strangers. She done these thoughts and intrusive images disturbing. Patient had no intention of acting on these thoughts or images, but she had difficulty terminating them. This led to patient having decreased appetite and insomnia feeling hopeless, having suicidal ideations herself. These symptoms been worsening over the last few weeks. At time of admission, patient's Celexa and Anafranil were both decreased at the same time due to patient having orthostasis. She would cut on both of these during her previous hospitalizations at [facility] in [facility]. Over the course that next 2-3 days patient started show signs of the serotonin discontinuation syndrome from both SSRIs plus TCAs. Patient was advised that there is no rational basis for her to be on the Celexa and Anafranil. Advised that she discontinue Celexa. Patient was treated symptomatically with Klonopin when necessary for withdrawal symptoms. Anafranil was At 75 mg by mouth daily at bedtime. Celexa was decreased to 10 mg by mouth every morning with instructions to discuss further discontinuation with outpatient provider. Orthostasis improved dramatically with decrease in both Anafranil and Celexa. Also throughout hospital course, patient's obsessional thoughts became less intense and during the last 2 days of hospital course patient reported improvement and on the last day no homicidal or suicidal content. MENTAL STATUS EXAM: Appearance: alert, well groomed, appears stated age, gait stable Behavior: no psychomotor agitation or psychomotor retardation, no abnormal movements, fair eye contact Attitude: cooperative Speech: normal rate, rhythm, fluency, articulation, volume, and prosody; primary language: Bulgarian Mood: mildly anxious Affect: congruent, reactive Thought processes: linear Thought content: patient does not appear to be responding to internal stimuli ; patient denies auditory and visual hallucinations, no delusions appreciated, + obsessions (no suicidal o homicidal content today) Insight: fair Judgment: fair Cognitive: oriented to all 3 spheres, average intelligence Plan - Discharge Summary Discharge Rx Participant: No New Discharge Prescriptions: New busPIRone HCL 5 mg PO BID #28 tab Citalopram Hydrobromide [CeleXA] 10 mg PO DAILY #14 tablet clomiPRAMINE [Anafranil] 75 mg PO HS #42 cap Continue Budesonide [Pulmicort Flexhaler] 2 puff INHALATION RT-BID valACYclovir [Valtrex] 500 mg PO DAILY Albuterol Sulfate [Proair Respiclick] 1 puff INHALATION RT-Q6H PRN PRN Reason: Shortness Of Breath Omeprazole Magnesium [Prilosec OTC] 20 mg PO DAILY Cetirizine HCl [Zyrtec] 10 mg PO DAILY Naproxen Sodium [Naproxen Sodium DS] 550 mg PO DAILY Fluticasone Nasal [place] [Flonase Nasal [place]] 1 spray EA NOSTRIL DAILY Discontinued Citalopram Hydrobromide [Citalopram HBr] 40 mg PO DAILY clomiPRAMINE [Anafranil] 150 mg PO HS busPIRone HCL 15 mg PO TID Lisinopril [Zestril] 5 mg PO DAILY Discharge Medication List Budesonide [Pulmicort Flexhaler] 2 puff INHALATION RT-BID 01/10/17 [History] Albuterol Sulfate [Proair Respiclick] 1 puff INHALATION RT-Q6H PRN 04/15/17 [ History] valACYclovir [Valtrex] 500 mg PO DAILY 04/15/17 [History] Cetirizine HCl [Zyrtec] 10 mg PO DAILY 05/18/17 [History] Fluticasone Nasal [place] [Flonase Nasal [place]] 1 spray EA NOSTRIL DAILY 05/18/17 [History] Naproxen Sodium [Naproxen Sodium DS] 550 mg PO DAILY 05/18/17 [History] Omeprazole Magnesium [Prilosec OTC] 20 mg PO DAILY 05/18/17 [History] Citalopram Hydrobromide [CeleXA] 10 mg PO DAILY #14 tablet 05/24/17 [Rx] busPIRone HCL 5 mg PO BID #28 tab 05/24/17 [Rx] clomiPRAMINE [Anafranil] 75 mg PO HS #42 cap 05/24/17 [Rx] Follow up Appointment(s)/Referral(s): [facility] [Outside] - 1 Week (05/28/17 1200 with Isabella Whitfield) Roman Mcfarlane MD [Primary Care Provider] - 1-2 days Patient Instructions/Handouts: Depression (DC), Suicide Prevention for Adults ( DC) Activity/Diet/Wound Care/Special Instructions: Activity and diet as tolerated. Avoid the use of street drugs and alcohol. Take medications as prescribed. When you are in need of refills on your medications please contact your medical doctor and/or outpatient psychiatrist to have this done. Please go to scheduled outpatient appointment for aftercare treatment. If symptoms return or become worse call the crisis line at and/or go to the nearest emergency room for an evaluation. Discharge Disposition: HOME SELF-CARE
== END 2017-05-24 13:18 | disposition home or self-care (01) | DRG 882 ==
LOC: EC 16:19 → 3MHU 20:21
PROVIDERS: ADMIT Psychiatry & Neurology Psychiatry; ATTEND Psychiatry & Neurology Psychiatry
DX: F42.8 Other obsessive-compulsive disorder (principal); F33.9 Major depressive disorder, recurrent, unspecified; R45.851 Suicidal ideations; N39.0 Urinary tract infection, site not specified; I10 Essential (primary) hypertension; F41.9 Anxiety disorder, unspecified; I34.1 Nonrheumatic mitral (valve) prolapse; J45.30 Mild persistent asthma, uncomplicated; K21.9 Gastro-esophageal reflux disease without esophagitis; R45.850 Homicidal ideations; R73.03 Prediabetes; I95.1 Orthostatic hypotension; M51.36 Other intervertebral disc degeneration, lumbar region; R29.6 Repeated falls; G47.9 Sleep disorder, unspecified; Z79.899 Other long term (current) drug therapy; Z87.891 Personal history of nicotine dependence; Z88.1 Allergy status to other antibiotic agents; Z88.2 Allergy status to sulfonamides; Z88.8 Allergy status to other drugs, medicaments and biological substances; Z91.018 Allergy to other foods; Z81.8 Family history of other mental and behavioral disorders
CPT/HCPCS: 80053; 80306; 81001; 82075; 83036; 84443; 84520; 85025; 87086; 93005; 99285

== ENCOUNTER 2018-05-18 13:32 | Emergency (ER) | payer MEDICARE ==
[2018-05-18 13:37] VITALS: RESP 18; TEMP 98.4
--- NOTE | 2018-05-18 14:08 | ED ---
General Adult HPI - General Chief complaint: Psychiatric Symptoms Stated complaint: Depression Time Seen by Provider: 05/18/18 13:35 Source: patient, RN notes reviewed Mode of arrival: wheelchair Limitations: no limitations - History of Present Illness Initial comments: This is a 67-year-old female presents emergency Department complaining of depression and suicidal thoughts. Patient states she started having depressive thoughts about 2 weeks ago. Patient states his suicidal thoughts come stronger and stronger to the point where she is feeling unsafe at home. Patient states she's had to be admitted in the past and she feels as though she needs to be admitted again today. Patient states she has not made any attempt recently. Patient states she's had no physical complaint. Patient denies headache patient denies numbness weakness. Patient denies chest pain difficulty breathing shortness of breath per patient denies any recent fever chills or cough per patient denies any abdominal pain patient denies nausea vomiting diarrhea. - Related Data Home Medications Medication Instructions Recorded Confirmed Budesonide [Pulmicort Flexhaler] 2 puff INHALATION RT-BID 01/10/17 05/18/17 Albuterol Sulfate [Proair 1 puff INHALATION RT-Q6H PRN 04/15/17 05/18/17 Respiclick] valACYclovir [Valtrex] 500 mg PO DAILY 04/15/17 05/18/17 Cetirizine HCl [Zyrtec] 10 mg PO DAILY 05/18/17 05/18/17 Fluticasone Nasal [place] [Flonase 1 spray EA NOSTRIL DAILY 05/18/17 05/18/17 Nasal [place]] Naproxen Sodium [Naproxen Sodium 550 mg PO DAILY 05/18/17 05/18/17 DS] Omeprazole Magnesium [PriLOSEC OTC] 20 mg PO DAILY 05/18/17 05/18/17 Previous Rx's Medication Instructions Recorded Citalopram Hydrobromide [CeleXA] 10 mg PO DAILY #14 tablet 05/24/17 busPIRone HCL 5 mg PO BID #28 tab 05/24/17 clomiPRAMINE [Anafranil] 75 mg PO HS #42 cap 05/24/17 Allergies Allergy/AdvReac Type Severity Reaction Status Date / Time lactose Allergy Unknown Verified 05/18/18 13:37 levofloxacin [From Levaquin] Allergy Rash/Hives Verified 05/18/18 13:37 metronidazole [From Flagyl] Allergy Rash/Hives Verified 05/18/18 13:37 Sulfa (Sulfonamide Allergy Rash/Hives Verified 05/18/18 13:37 Antibiotics) metformin AdvReac Nausea & Verified 05/18/18 13:37 Vomiting & Diarrhea Review of Systems ROS Statement: Those systems with pertinent positive or pertinent negative responses have been documented in the HPI. ROS Other: All systems not noted in ROS Statement are negative. 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 Past Anesthesia/Blood Transfusion Reactions: No Reported Reaction Past Psychological History: Anxiety, Depression Smoking Status: Never smoker Past Alcohol Use History: None Reported Past Drug Use History: None Reported General Exam - General Exam Comments Initial Comments: GENERAL: Patient is well-developed and well-nourished. Patient is nontoxic and well- hydrated and is in no acute distress. ENT: Neck is soft and supple. No significant lymphadenopathy is noted. Oropharynx is clear. Moist mucous membranes. Neck has full range of motion without eliciting any pain. EYES: The sclera were anicteric and conjunctiva were pink and moist. Extraocular movements were intact and pupils were equal round and reactive to light. Eyelids were unremarkable. PULMONARY: Unlabored respirations. Good breath sounds bilaterally. No audible rales rhonchi or wheezing was noted. CARDIOVASCULAR: There is a regular rate and rhythm without any murmurs gallops or rubs. ABDOMEN: Soft and nontender with normal bowel sounds. No palpable organomegaly was noted. There is no palpable pulsatile mass. SKIN: Skin is clear with no lesions or rashes and otherwise unremarkable. NEUROLOGIC: Patient is alert and oriented x3. Cranial nerves II through XII are grossly intact. Motor and sensory are also intact. Normal speech, volume and content. Symmetrical smile. MUSCULOSKELETAL: Normal extremities with adequate strength and full range of motion. LYMPHATICS: No significant lymphadenopathy is noted PSYCHIATRIC: Patient states she is very depressed and can't stop thinking about suicide. Limitations: no limitations Course Vital Signs 05/18/18 13:35 Temperature 98.4 F Pulse Rate 112 H Respiratory 18 Rate Blood Pressure 166/98 O2 Sat by Pulse 97 Oximetry Medical Decision Making - Medical Decision Making EPS came down and evaluated the patient and determined that the patient needed to be admitted patient was in agreement with the admission Disposition Clinical Impression: Depression, Suicidal ideation Disposition: ADMITTED IP TO THIS HOSP Referrals: Roman Mcfarlane MD [Primary Care Provider] - 1-2 days Time of Disposition: 16:10
[2018-05-18 16:51] LABS: Glucose,Whole Blood 129 mg/dL (75-99)
[2018-05-18 17:00] LABS: Basophils # (A) 0.1 k/uL (0-0.2); Basophils % (A) 1 %; Eosinophils # (A) 0.1 k/uL (0-0.7); Eosinophils % (A) 2 %; HCT 41.1 % (34.0-46.0); HGB 13.2 gm/dL (11.4-16.0); Lymphocytes # (A) 1.8 k/uL (1.0-4.8); Lymphocytes % (A) 30 %; MCH 27.6 pg (25.0-35.0); MCHC 32.2 g/dL (31.0-37.0); MCV 85.7 fL (80.0-100.0); Mean Platelet Volume 6.1; Monocytes # (A) 0.4 k/uL (0-1.0); Monocytes % (A) 6 %; Neutrophils # (A) 3.5 k/uL (1.3-7.7); Neutrophils % (A) 59 %; Platelet Count 289 k/uL (150-450); RBC 4.79 m/uL (3.80-5.40)
[2018-05-18 17:05] LABS: Appearance,Urine Cloudy (Clear); Bacteria,Urine Occasional /hpf; Bilirubin,Urine Negative (Negative); Blood,Urine Negative (Negative); Color,Urine Yellow; Glucose,Urine (UA) Trace (Negative); Hyaline Casts,Urine 6 /lpf (0-2); Ketones,Urine Negative (Negative); Leukocyte Esterase,Urine Large (Negative); Mucus,Urine Moderate /hpf; Nitrite,Urine Positive (Negative); PH, Urine 5.5 (5.0-8.0); Protein,Urine Trace (Negative); RBC,Urine 4 /hpf (0-5); Specific Gravity,Urine 1.026 (1.001-1.035); Squamous Epithelial Cell,Urine 3 /hpf (0-4); Urobilinogen,Urine <2.0 mg/dL (<2.0); WBC,Urine 37 /hpf (0-5)
[2018-05-18 17:09] LABS: ALT 69 U/L (9-52); AST 41 U/L (14-36); Albumin 4.2 g/dL (3.5-5.0); Alkaline Phosphatase 70 U/L (38-126); Anion Gap 10 mmol/L; Blood Urea Nitrogen 26 mg/dL (7-17); Calcium 10.1 mg/dL (8.4-10.2); Carbon Dioxide 25 mmol/L (22-30); Chloride 107 mmol/L (98-107); Glucose 140 mg/dL (74-99); Potassium 4.4 mmol/L (3.5-5.1); Sodium 142 mmol/L (137-145); Total Bilirubin 0.2 mg/dL (0.2-1.3); Total Protein 7.5 g/dL (6.3-8.2)
[2018-05-18 17:10] LABS: Amphetamine Screen,Urine Not Detected (NotDetected); Barbiturate Screen,Urine Not Detected (NotDetected); Benzodiazepines Screen,Urine Not Detected (NotDetected); Cocaine Screen,Urine Not Detected (NotDetected); Methadone Screen, Urine Not Detected (NotDetected); Opiate Screen,Urine Not Detected (NotDetected); Oxycodone Screen, Urine Not Detected (NotDetected); Phencyclidine Screen,Urine Not Detected (NotDetected); Tricyclic Antidepressant,Urine Not Detected (NotDetected); Urn Cannabinoid Scrn Not Detected (NotDetected)
[2018-05-18 18:17] VITALS: BP 148/91; PULSE 102
== END 2018-05-18 18:22 | disposition home or self-care (01) ==
LOC: EC 13:32
DX: F32.9 Major depressive disorder, single episode, unspecified (principal); R45.851 Suicidal ideations; F41.9 Anxiety disorder, unspecified; F42.9 Obsessive-compulsive disorder, unspecified; J45.909 Unspecified asthma, uncomplicated; K21.9 Gastro-esophageal reflux disease without esophagitis; Z79.1 Long term (current) use of non-steroidal anti-inflammatories (NSAID); Z79.899 Other long term (current) drug therapy; Z79.51 Long term (current) use of inhaled steroids; Z91.011 Allergy to milk products; Z88.1 Allergy status to other antibiotic agents; Z88.2 Allergy status to sulfonamides; Z88.8 Allergy status to other drugs, medicaments and biological substances
CPT/HCPCS: 36415; 80053; 80306; 81001; 82075; 85025; 99284

== ENCOUNTER 2018-05-25 16:41 | Emergency (ER) | payer MEDICARE ==
[2018-05-25 16:48] VITALS: RESP 16; TEMP 98.3
--- NOTE | 2018-05-25 17:09 | ED ---
Psych HPI - General Source: patient, RN notes reviewed, old records reviewed Mode of arrival: wheelchair <Angelia Gonzalez - Last Filed: 05/26/18 00:18> <Terence Fraire - Last Filed: 05/26/18 15:48> - General Chief Complaint: Psychiatric Symptoms Stated Complaint: DEPRESSION Time Seen by Provider: 05/25/18 16:53 - History of Present Illness Initial Comments: Patient is a 67-year-old female extensive history of depression presents emergency department today for increased depression, suicidal thoughts. She reports that they've been fleeting. She has no specific plan. She's been treated patiently [place] [facility] last year as well as received shock therapy. Patient reports that she is on multiple medications and to see her counselor [facility]. She reports that her counts are encouraged her to come to emergency department today for admission. Patient states that she's been sleeping mostly for the past 2 weeks. Her appetite has been poor and when she is eating she only eats cookies.Patient denies any recent fever, chills, shortness of breath, chest pain, back pain, abdominal pain, nausea vomiting, numbness or tingling, dysuria or hematuria, constipation or diarrhea, headaches or visual changes, or any other current symptoms (Angelia Gonzalez) - Related Data Home Medications Medication Instructions Recorded Confirmed Budesonide [Pulmicort Flexhaler] 2 puff INHALATION RT-BID 01/10/17 05/25/18 Albuterol Sulfate [Proair 1 puff INHALATION RT-Q6H PRN 04/15/17 05/25/18 Respiclick] valACYclovir [Valtrex] 500 mg PO DAILY 04/15/17 05/25/18 Cetirizine HCl [Zyrtec] 10 mg PO DAILY 05/18/17 05/25/18 Fluticasone Nasal [place] [Flonase 1 spray EA NOSTRIL DAILY 05/18/17 05/25/18 Nasal [place]] Naproxen Sodium [Naproxen Sodium 550 mg PO DAILY 05/18/17 05/25/18 DS] Omeprazole Magnesium [PriLOSEC OTC] 20 mg PO DAILY 05/18/17 05/25/18 ARIPiprazole [Abilify] 10 mg PO DAILY 05/18/18 05/25/18 Vitamin B Complex/Folic Acid 0.4 mg PO DAILY 05/18/18 05/25/18 [B-Complex Tablet] clomiPRAMINE HCL [Anafranil] 50 mg PO HS 05/18/18 05/25/18 busPIRone HCL 7.5 mg PO BID 05/25/18 05/25/18 Previous Rx's Medication Instructions Recorded Citalopram Hydrobromide [CeleXA] 10 mg PO DAILY #14 tablet 05/24/17 Nitrofurantoin Monohyd/M-Cryst 100 mg PO Q12HR #14 cap 05/18/18 [Macrobid] Allergies Allergy/AdvReac Type Severity Reaction Status Date / Time lactose Allergy Unknown Verified 05/25/18 17:30 levofloxacin [From Levaquin] Allergy Rash/Hives Verified 05/25/18 17:30 metronidazole [From Flagyl] Allergy Rash/Hives Verified 05/25/18 17:30 Sulfa (Sulfonamide Allergy Rash/Hives Verified 05/25/18 17:30 Antibiotics) Review of Systems ROS Other: All systems not noted in ROS Statement are negative. <Angelia Gonzalez - Last Filed: 05/26/18 00:18> ROS Other: All systems not noted in ROS Statement are negative. <Terence Fraire - Last Filed: 05/26/18 15:48> ROS Statement: Those systems with pertinent positive or pertinent negative responses have been documented in the HPI. 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 Past Anesthesia/Blood Transfusion Reactions: No Reported Reaction Past Psychological History: Anxiety, Depression Smoking Status: Never smoker Past Alcohol Use History: None Reported Past Drug Use History: None Reported <Angelia Gonzalez - Last Filed: 05/26/18 00:18> General Exam Limitations: no limitations General appearance: alert Head exam: Present: atraumatic Eye exam: Present: normal appearance, PERRL, EOMI. Absent: scleral icterus, conjunctival injection, periorbital swelling ENT exam: Present: normal exam, mucous membranes moist Neck exam: Present: normal inspection. Absent: tenderness, meningismus, lymphadenopathy Respiratory exam: Present: normal lung sounds bilaterally. Absent: respiratory distress, wheezes, rales, rhonchi, stridor Cardiovascular Exam: Present: regular rate, normal rhythm, normal heart sounds. Absent: systolic murmur, diastolic murmur, rubs, gallop, clicks GI/Abdominal exam: Present: soft, normal bowel sounds. Absent: distended, tenderness, guarding, rebound, rigid Extremities exam: Present: normal inspection, full ROM, normal capillary refill. Absent: tenderness, pedal edema, joint swelling, calf tenderness Back exam: Present: normal inspection Neurological exam: Present: alert, oriented X3, CN II-XII intact Psychiatric exam: Present: depressed, suicidal ideation. Absent: normal affect (Flat affect), normal mood Skin exam: Present: warm, dry, intact, normal color. Absent: rash <Angelia Gonzalez - Last Filed: 05/26/18 00:18> <Terence Fraire - Last Filed: 05/26/18 15:48> - General Exam Comments Initial Comments: 67-year-old female. Alert and oriented 3. Patient is here with her . She appears in no acute distress. (Angelia Gonzalez) Course <Angelia Gonzalez - Last Filed: 05/26/18 00:18> <Terence Fraire - Last Filed: 05/26/18 15:48> Vital Signs 05/25/18 05/26/18 16:45 09:20 Temperature 98.3 F Pulse Rate 119 H 77 Respiratory 16 16 Rate Blood Pressure 117/69 144/89 O2 Sat by Pulse 98 97 Oximetry - Reevaluation(s) Reevaluation #1: 05/25/18 21:28 15-year-old female with depression and suicidal ideation. I did complete a clinical search after evaluation of this patient. She will be admitted for further psychiatric care. (Terence Fraire) Medical Decision Making - Lab Data Result diagrams: 05/25/18 19:20 05/25/18 19:20 <Angelia Gonzalez - Last Filed: 05/26/18 00:18> - Lab Data Result diagrams: 05/25/18 19:20 05/25/18 19:20 <Terence Fraire - Last Filed: 05/26/18 15:48> - Medical Decision Making Patient's a 59-year-old female presents emergency murmurs day with fleeting suicidal thoughts, no specific plan. She's had worsening depression over the past 2 weeks. At this time Patient was seen and evaluated by EPS. They recommended admission and transfer to inpatient psychiatric treatment. Patient had medical clearance. Certification filled out by Dr. Fraire. (Lisa Angelia) - Lab Data Lab Results 05/25/18 05/25/18 05/25/18 Range/Units 19:20 19:20 20:47 WBC 6.6 (3.8-10.6) k/uL RBC 4.68 (3.80-5.40) m/uL Hgb 13.0 (11.4-16.0) gm/dL Hct 40.0 (34.0-46.0) % MCV 85.6 (80.0-100.0) fL MCH 27.8 (25.0-35.0) pg MCHC 32.5 (31.0-37.0) g/dL RDW 13.9 (11.5-15.5) % Plt Count 298 (150-450) k/uL Neutrophils % 61 % Lymphocytes % 27 % Monocytes % 6 % Eosinophils % 2 % Basophils % 1 % Neutrophils # 4.0 (1.3-7.7) k/uL Lymphocytes # 1.8 (1.0-4.8) k/uL Monocytes # 0.4 (0-1.0) k/uL Eosinophils # 0.2 (0-0.7) k/uL Basophils # 0.1 (0-0.2) k/uL Sodium 136 L (137-145) mmol/L Potassium 4.2 (3.5-5.1) mmol/L Chloride 103 (98-107) mmol/L Carbon Dioxide 22 (22-30) mmol/L Anion Gap 11 mmol/L BUN 24 H (7-17) mg/dL Creatinine 0.59 (0.52-1.04) mg/dL Est GFR (CKD-EPI)AfAm >90 (>60 ml/min/1.73 sqM) Est GFR (CKD-EPI)NonAf >90 (>60 ml/min/1.73 sqM) Glucose 205 H (74-99) mg/dL POC Glucose (mg/dL) (75-99) mg/dL POC Glu [employer] ID Calcium 9.3 (8.4-10.2) mg/dL Total Bilirubin 0.3 (0.2-1.3) mg/dL AST 47 H (14-36) U/L ALT 74 H (9-52) U/L Alkaline Phosphatase 72 (38-126) U/L Total Protein 7.0 (6.3-8.2) g/dL Albumin 4.0 (3.5-5.0) g/dL Urine Color Light Red Urine Appearance Clear (Clear) Urine pH 5.5 (5.0-8.0) Ur Specific [place] 1.022 (1.001-1.035) Urine Protein Trace H (Negative) Urine Glucose (UA) Trace H (Negative) Urine Ketones 1+ H (Negative) Urine Blood Negative (Negative) Urine Nitrite Negative (Negative) Urine Bilirubin Negative (Negative) Urine Urobilinogen <2.0 (<2.0) mg/dL Ur Leukocyte Esterase Negative (Negative) Urine HCG, Qual (Not Detectd) Urine Opiates Screen Not Detected (NotDetected) Ur Oxycodone Screen Not Detected (NotDetected) Urine Methadone Screen Not Detected (NotDetected) Ur Propoxyphene Screen Not Detected (NotDetected) Ur Barbiturates Screen Not Detected (NotDetected) U Tricyclic Antidepress Not Detected (NotDetected) Ur Phencyclidine Scrn Not Detected (NotDetected) Ur Amphetamines Screen Not Detected (NotDetected) U Methamphetamines Scrn Not Detected (NotDetected) U Benzodiazepines Scrn Not Detected (NotDetected) Urine Cocaine Screen Not Detected (NotDetected) U Marijuana (THC) Screen Not Detected (NotDetected) 05/25/18 05/26/18 Range/Units 20:47 09:14 WBC (3.8-10.6) k/uL RBC (3.80-5.40) m/uL Hgb (11.4-16.0) gm/dL Hct (34.0-46.0) % MCV (80.0-100.0) fL MCH (25.0-35.0) pg MCHC (31.0-37.0) g/dL RDW (11.5-15.5) % Plt Count (150-450) k/uL Neutrophils % % Lymphocytes % % Monocytes % % Eosinophils % % Basophils % % Neutrophils # (1.3-7.7) k/uL Lymphocytes # (1.0-4.8) k/uL Monocytes # (0-1.0) k/uL Eosinophils # (0-0.7) k/uL Basophils # (0-0.2) k/uL Sodium (137-145) mmol/L Potassium (3.5-5.1) mmol/L Chloride (98-107) mmol/L Carbon Dioxide (22-30) mmol/L Anion Gap mmol/L BUN (7-17) mg/dL Creatinine (0.52-1.04) mg/dL Est GFR (CKD-EPI)AfAm (>60 ml/min/1.73 sqM) Est GFR (CKD-EPI)NonAf (>60 ml/min/1.73 sqM) Glucose (74-99) mg/dL POC Glucose (mg/dL) 167 H (75-99) mg/dL POC Glu [facility] ID Tomasa Bunn Calcium (8.4-10.2) mg/dL Total Bilirubin (0.2-1.3) mg/dL AST (14-36) U/L ALT (9-52) U/L Alkaline Phosphatase (38-126) U/L Total Protein (6.3-8.2) g/dL Albumin (3.5-5.0) g/dL Urine Color Urine Appearance (Clear) Urine pH (5.0-8.0) Ur Specific [place] (1.001-1.035) Urine Protein (Negative) Urine Glucose (UA) (Negative) Urine Ketones (Negative) Urine Blood (Negative) Urine Nitrite (Negative) Urine Bilirubin (Negative) Urine Urobilinogen (<2.0) mg/dL Ur Leukocyte Esterase (Negative) Urine HCG, Qual Not Detected (Not Detectd) Urine Opiates Screen (NotDetected) Ur Oxycodone Screen (NotDetected) Urine Methadone Screen (NotDetected) Ur Propoxyphene Screen (NotDetected) Ur Barbiturates Screen (NotDetected) U Tricyclic Antidepress (NotDetected) Ur Phencyclidine Scrn (NotDetected) Ur Amphetamines Screen (NotDetected) U Methamphetamines Scrn (NotDetected) U Benzodiazepines Scrn (NotDetected) Urine Cocaine Screen (NotDetected) U Marijuana (THC) Screen (NotDetected) Disposition Is patient prescribed a controlled substance at d/c from ED?: No Time of Disposition: 00:18 <Angelia Gonzalez - Last Filed: 05/26/18 00:18> - Out of Hospital Transfer - Req. Specs Out of Hospital Transfer - Requested Specifics: Psychiatric Non-ICU (Patient will be transferred to [facility]) <Terence Fraire - Last Filed: 05/26/18 15:48> Clinical Impression: Depression, Suicidal ideation Disposition: TRANSFER TO PSYCH HOSP/UNIT Condition: Stable Referrals: Roman Mcfarlane MD [Primary Care Provider] - 1-2 days
[2018-05-25 19:39] LABS: Basophils # (A) 0.1 k/uL (0-0.2); Basophils % (A) 1 %; Eosinophils # (A) 0.2 k/uL (0-0.7); Eosinophils % (A) 2 %; Lymphocytes # (A) 1.8 k/uL (1.0-4.8); Lymphocytes % (A) 27 %; MCH 27.8 pg (25.0-35.0); MCHC 32.5 g/dL (31.0-37.0); MCV 85.6 fL (80.0-100.0); Mean Platelet Volume 6.5; Monocytes # (A) 0.4 k/uL (0-1.0); Monocytes % (A) 6 %; Neutrophils % (A) 61 %; Platelet Count 298 k/uL (150-450); RBC 4.68 m/uL (3.80-5.40); RDW 13.9 % (11.5-15.5); WBC 6.6 k/uL (3.8-10.6)
[2018-05-25] MEDS ORDERED: ACETAMINOPHEN TAB 500 MG TAB PO STA (19:42)
[2018-05-25 19:47] LABS: ALT 74 U/L (9-52); AST 47 U/L (14-36); Alkaline Phosphatase 72 U/L (38-126); Anion Gap 11 mmol/L; Blood Urea Nitrogen 24 mg/dL (7-17); Calcium 9.3 mg/dL (8.4-10.2); Carbon Dioxide 22 mmol/L (22-30); Chloride 103 mmol/L (98-107); Glucose 205 mg/dL (74-99); Potassium 4.2 mmol/L (3.5-5.1); Sodium 136 mmol/L (137-145); Total Bilirubin 0.3 mg/dL (0.2-1.3)
[2018-05-25 21:07] LABS: Appearance,Urine Clear (Clear); Bilirubin,Urine Negative (Negative); Blood,Urine Negative (Negative); Color,Urine Light Red; Glucose,Urine (UA) Trace (Negative); Ketones,Urine 1+ (Negative); Leukocyte Esterase,Urine Negative (Negative); Nitrite,Urine Negative (Negative); PH, Urine 5.5 (5.0-8.0); Protein,Urine Trace (Negative); Specific Gravity,Urine 1.022 (1.001-1.035); Urobilinogen,Urine <2.0 mg/dL (<2.0)
[2018-05-25 21:16] LABS: Amphetamine Screen,Urine Not Detected (NotDetected); Barbiturate Screen,Urine Not Detected (NotDetected); Benzodiazepines Screen,Urine Not Detected (NotDetected); Cocaine Screen,Urine Not Detected (NotDetected); Methadone Screen, Urine Not Detected (NotDetected); Opiate Screen,Urine Not Detected (NotDetected); Oxycodone Screen, Urine Not Detected (NotDetected); Phencyclidine Screen,Urine Not Detected (NotDetected); Tricyclic Antidepressant,Urine Not Detected (NotDetected); Urn Cannabinoid Scrn Not Detected (NotDetected)
[2018-05-25] MEDS ORDERED: ALBUTEROL NEBULIZED 2.5 MG/3 ML INHALATION PRN (21:26)
[2018-05-25] MEDS ORDERED: ZOLPIDEM 5 MG TAB PO SCH (23:45)
[2018-05-26] MEDS: ACETAMINOPHEN TAB 500 MG TAB PO SCH ×2 (01:50→09:10)
[2018-05-26] MEDS ORDERED: FLUTICASONE 110 MCG INHALER INHALATION SCH (08:00)
[2018-05-26] MEDS ORDERED: FLUTICASONE 50MCG/SPRAY NASAL 16GM EA NOSTRIL SCH (09:00)
[2018-05-26] MEDS ORDERED: valACYclovir 500 MG TAB PO SCH (09:00)
[2018-05-26] MEDS ORDERED: LORATADINE 10 MG TAB PO SCH (09:00)
[2018-05-26] MEDS ORDERED: busPIRone HCl 5 MG TAB PO SCH (09:00)
[2018-05-26] MEDS ORDERED: NAPROXEN 250 MG TAB PO SCH (09:00)
[2018-05-26] MEDS ORDERED: ARIPiprazole 10 MG TAB PO SCH (09:00)
[2018-05-26 09:19] LABS: Glucose,Whole Blood 167 mg/dL (75-99)
[2018-05-26] MEDS ORDERED: PANTOPRAZOLE 40 MG TABLET PO SCH (09:30)
[2018-05-26] MEDS ORDERED: metFORMIN 500 MG TAB PO SCH (09:30)
[2018-05-26] MEDS: CITALOPRAM HYDROBROMIDE 10 MG TAB PO SCH ×2 (09:37→09:38)
[2018-05-26] MEDS ORDERED: ALBUTEROL INHALER 60 PUFF/8 GM INHALER INHALATION PRN (10:10)
[2018-05-26 19:22] VITALS: BP 123/89; PULSE 70
== END 2018-05-26 18:30 ==
LOC: EC 16:41
DX: F32.9 Major depressive disorder, single episode, unspecified (principal); R45.851 Suicidal ideations; J45.909 Unspecified asthma, uncomplicated; E11.9 Type 2 diabetes mellitus without complications; K21.9 Gastro-esophageal reflux disease without esophagitis; F42.9 Obsessive-compulsive disorder, unspecified; F41.9 Anxiety disorder, unspecified; Z79.51 Long term (current) use of inhaled steroids; Z79.1 Long term (current) use of non-steroidal anti-inflammatories (NSAID); Z79.899 Other long term (current) drug therapy; Z91.011 Allergy to milk products; Z88.1 Allergy status to other antibiotic agents; Z88.2 Allergy status to sulfonamides
CPT/HCPCS: 36415; 80053; 80306; 81003; 81025; 85025; 94640; 99285

== ENCOUNTER → 2021-01-26 | Outpatient (CLI) | payer MEDICARE ==
[2021-01-26 12:23] LABS: Anisocytosis Slight; Basophils # (A) 0.1 k/uL (0-0.2); Basophils % (A) 1 %; Eosinophils # (A) 0.2 k/uL (0-0.7); Eosinophils % (A) 3 %; HCT 37.6 % (34.0-46.0); HGB 11.7 gm/dL (11.4-16.0); Hypochromasia Slight; Lymphocytes # (A) 1.2 k/uL (1.0-4.8); Lymphocytes % (A) 21 %; MCHC 31.1 g/dL (31.0-37.0); MCV 83.7 fL (80.0-100.0); Mean Platelet Volume 6.2; Monocytes # (A) 0.3 k/uL (0-1.0); Monocytes % (A) 6 %; Neutrophils # (A) 3.6 k/uL (1.3-7.7); Neutrophils % (A) 65 %; Platelet Count 338 k/uL (150-450); RBC 4.49 m/uL (3.80-5.40); RDW 16.4 % (11.5-15.5); WBC 5.5 k/uL (3.8-10.6)
[2021-01-26 12:34] LABS: ALT 81 U/L (4-34); AST 61 U/L (14-36); African American GFR (CKD) >90 (>60 ml/min/1.73 sqM); Albumin 4.4 g/dL (3.5-5.0); Alkaline Phosphatase 107 U/L (38-126); Anion Gap 11 mmol/L; Blood Urea Nitrogen 33 mg/dL (7-17); Calcium 9.8 mg/dL (8.4-10.2); Carbon Dioxide 25 mmol/L (22-30); Chloride 104 mmol/L (98-107); Glucose 142 mg/dL (74-99); Non-African American GFR(CKD) 81 (>60 ml/min/1.73 sqM); Potassium 5.1 mmol/L (3.5-5.1); Sodium 140 mmol/L (137-145); Total Bilirubin 0.3 mg/dL (0.2-1.3); Total Protein 7.3 g/dL (6.3-8.2)
[2021-01-26 12:42] LABS: INR 0.8 (<1.2); Prothrombin Time 9.3 sec (9.0-12.0)
[2021-01-26 12:53] LABS: Partial Thromboplastin Time 19.2 sec (22.0-30.0)
[2021-01-26 12:56] LABS: Appearance,Urine Cloudy (Clear); Bacteria,Urine Moderate /hpf; Bilirubin,Urine Negative (Negative); Blood,Urine Negative (Negative); Color,Urine Yellow; Glucose,Urine (UA) Negative (Negative); Hyaline Casts,Urine 9 /lpf (0-2); Ketones,Urine Negative (Negative); Leukocyte Esterase,Urine Large (Negative); Mucus,Urine Moderate /hpf; Nitrite,Urine Positive (Negative); Protein,Urine Negative (Negative); RBC,Urine 7 /hpf (0-5); Specific Gravity,Urine 1.021 (1.001-1.035); Squamous Epithelial Cell,Urine 5 /hpf (0-4); Urobilinogen,Urine <2.0 mg/dL (<2.0); WBC,Urine 71 /hpf (0-5)
== END | disposition home or self-care (01) ==
LOC: LABPAT 10:56
PROVIDERS: ATTEND Orthopaedic Surgery
DX: Z01.818 Encounter for other preprocedural examination (principal)
CPT/HCPCS: 80053; 81001; 85025; 85610; 85730; 87070; 93005

== ENCOUNTER 2021-02-20 08:07 | Day surgery (SDC) | payer MEDICARE ==
[2021-02-15 10:39] VITALS: BMI 30.1
[~2021-02-20 08:07] MED LIST: ACETAMINOPHEN TAB 500 MG TAB PO PRN; DEXAMETHASONE SOD PHOSPHATE 4 MG/ML 1 ML VIAL IV ONE; GABAPENTIN 300 MG CAP PO PRN; HYDROmorphone 0.5 MG/0.5 ML SYRINGE IVP PRN; LACTATED RINGERS 1,000 ML IV SCH; LIDOCAINE 1% (10MG/ML) FOR IV START INTRADERMA PRN; MELOXICAM 7.5 MG TAB PO PRN; MIDAZOLAM 2 MG/2 ML VIAL IV PRN; ONDANSETRON 4 MG/2 ML VIAL IVP ONE; ONDANSETRON 4 MG/2 ML VIAL IVP PRN; ROPIVACAINE/EPI/CLONIDINE/KET 50 ML SYRINGE MISCELLANE PRN; TRANEXAMIC ACID 1,000 MG in SODIUM CHLORIDE 0.9% 100 ML IVPB PRN
[2021-02-20 08:59] VITALS: BP 203/89; PULSE 102; RESP 16; TEMP 95
[2021-02-20 09:36] LABS: Appearance,Urine Cloudy (Clear); Bacteria,Urine Rare /hpf; Bilirubin,Urine Negative (Negative); Blood,Urine Negative (Negative); Color,Urine Yellow; Glucose,Urine (UA) Negative (Negative); Hyaline Casts,Urine 13 /lpf (0-2); Ketones,Urine Negative (Negative); Leukocyte Esterase,Urine Large (Negative); Mucus,Urine Many /hpf; Nitrite,Urine Negative (Negative); Protein,Urine Trace (Negative); RBC,Urine 4 /hpf (0-5); Specific Gravity,Urine 1.015 (1.001-1.035); Squamous Epithelial Cell,Urine 13 /hpf (0-4); Urobilinogen,Urine <2.0 mg/dL (<2.0); WBC,Urine 113 /hpf (0-5)
== END 2021-02-20 09:53 | disposition home or self-care (01) ==
LOC: OR 08:07
PROVIDERS: ATTEND Orthopaedic Surgery
DX: Z01.818 Encounter for other preprocedural examination (principal); Z53.09 Procedure and treatment not carried out because of other contraindication; M17.12 Unilateral primary osteoarthritis, left knee; M25.562 Pain in left knee
CPT/HCPCS: 81001

== ENCOUNTER → 2021-04-05 | Outpatient (CLI) | payer MEDICARE ==
[2021-04-05 11:20] LABS: Anisocytosis Slight; HCT 37.3 % (34.0-46.0); HGB 11.5 gm/dL (11.4-16.0); Hypochromasia Slight; MCH 26.3 pg (25.0-35.0); MCHC 30.7 g/dL (31.0-37.0); MCV 85.7 fL (80.0-100.0); Mean Platelet Volume 6.5; Platelet Count 364 k/uL (150-450); RBC 4.35 m/uL (3.80-5.40); RDW 16.1 % (11.5-15.5); WBC 8.8 k/uL (3.8-10.6)
[2021-04-05 11:40] LABS: Appearance,Urine Turbid (Clear); Bacteria,Urine Few /hpf; Bilirubin,Urine Negative (Negative); Blood,Urine Moderate (Negative); Color,Urine Yellow; Glucose,Urine (UA) Negative (Negative); Ketones,Urine Negative (Negative); Leukocyte Esterase,Urine Large (Negative); Mucus,Urine Rare /hpf; Nitrite,Urine Positive (Negative); Protein,Urine 1+ (Negative); RBC,Urine 59 /hpf (0-5); Specific Gravity,Urine 1.018 (1.001-1.035); Squamous Epithelial Cell,Urine 1 /hpf (0-4); Urobilinogen,Urine <2.0 mg/dL (<2.0); WBC,Urine >182 /hpf (0-5)
[2021-04-05 11:44] LABS: INR 0.8 (<1.2); Prothrombin Time 9.4 sec (9.0-12.0)
[2021-04-05 11:53] LABS: ALT 32 U/L (4-34); AST 35 U/L (14-36); African American GFR (CKD) >90 (>60 ml/min/1.73 sqM); Albumin 4.1 g/dL (3.5-5.0); Alkaline Phosphatase 109 U/L (38-126); Anion Gap 7 mmol/L; Blood Urea Nitrogen 24 mg/dL (7-17); Calcium 9.9 mg/dL (8.4-10.2); Carbon Dioxide 29 mmol/L (22-30); Chloride 103 mmol/L (98-107); Glucose 136 mg/dL (74-99); Non-African American GFR(CKD) 83 (>60 ml/min/1.73 sqM); Sodium 139 mmol/L (137-145); Total Bilirubin 0.3 mg/dL (0.2-1.3); Total Protein 7.4 g/dL (6.3-8.2)
[2021-04-05 12:20] LABS: Partial Thromboplastin Time 20.2 sec (22.0-30.0)
== END | disposition home or self-care (01) ==
LOC: LABPAT 10:34
PROVIDERS: ATTEND Orthopaedic Surgery
DX: Z01.812 Encounter for preprocedural laboratory examination (principal); M17.12 Unilateral primary osteoarthritis, left knee; Z79.01 Long term (current) use of anticoagulants
CPT/HCPCS: 36415; 80053; 81001; 85027; 85610; 85730; 87070; 87086

== ENCOUNTER → 2021-05-24 | Outpatient (CLI) | payer MEDICARE ==
[2021-05-24 15:14] LABS: Anisocytosis Slight; HCT 37.9 % (34.0-46.0); MCH 26.7 pg (25.0-35.0); MCHC 31.5 g/dL (31.0-37.0); MCV 84.8 fL (80.0-100.0); Mean Platelet Volume 6.4; Platelet Count 375 k/uL (150-450); RBC 4.47 m/uL (3.80-5.40); RDW 16.7 % (11.5-15.5); WBC 7.5 k/uL (3.8-10.6)
[2021-05-24 15:16] LABS: Appearance,Urine Cloudy (Clear); Bacteria,Urine Rare /hpf; Bilirubin,Urine Negative (Negative); Blood,Urine Negative (Negative); Color,Urine Yellow; Glucose,Urine (UA) Negative (Negative); Hyaline Casts,Urine 4 /lpf (0-2); Ketones,Urine Negative (Negative); Leukocyte Esterase,Urine Small (Negative); Mucus,Urine Rare /hpf; Nitrite,Urine Negative (Negative); PH, Urine 6.5 (5.0-8.0); Protein,Urine Negative (Negative); RBC,Urine 1 /hpf (0-5); Specific Gravity,Urine 1.014 (1.001-1.035); Squamous Epithelial Cell,Urine 1 /hpf (0-4); Urobilinogen,Urine <2.0 mg/dL (<2.0); WBC,Urine 5 /hpf (0-5)
[2021-05-24 15:23] LABS: Albumin 4.4 g/dL (3.5-5.0); Calcium 9.6 mg/dL (8.4-10.2); Potassium 4.8 mmol/L (3.5-5.1); Total Bilirubin 0.2 mg/dL (0.2-1.3); Total Protein 7.6 g/dL (6.3-8.2)
[2021-05-24 15:33] LABS: INR 0.8 (<1.2); Partial Thromboplastin Time 21.1 sec (22.0-30.0); Prothrombin Time 9.4 sec (9.0-12.0)
== END | disposition home or self-care (01) ==
LOC: LABPAT 14:30
PROVIDERS: ATTEND Orthopaedic Surgery
DX: Z01.812 Encounter for preprocedural laboratory examination (principal); M17.12 Unilateral primary osteoarthritis, left knee
CPT/HCPCS: 80053; 81001; 85027; 85610; 85730; 87070

== ENCOUNTER 2021-06-12 12:47 | Day surgery (SDC) | payer MEDICARE ==
[2021-06-06 09:40] VITALS: BMI 34.0
[~2021-06-12 12:47] MED LIST changes: -GABAPENTIN 300 MG CAP PO PRN; -LACTATED RINGERS 1,000 ML IV SCH
[2021-06-12] MEDS: LACTATED RINGERS 1,000 ML IV SCH ×3 (13:08→23:00)
[2021-06-12 13:34] LABS: Glucose,Whole Blood 133 mg/dL (75-99)
[2021-06-12] MEDS ORDERED: MIDAZOLAM 2 MG/2 ML VIAL IVP ONE (13:51)
[2021-06-12] MEDS ORDERED: fentaNYL (PF) 50 MCG/ML 2 ML AMP IV ONE (13:51)
[2021-06-12] MEDS ORDERED: SODIUM CHLORIDE 0.9% 100 ML BAG ONE (15:41)
[2021-06-12] MEDS ORDERED: SODIUM CHLORIDE 0.9% (PF) 10 ML VIAL ONE (15:41)
[2021-06-12] MEDS ORDERED: MIDAZOLAM 2 MG/2 ML VIAL ONE (15:41)
[2021-06-12] MEDS ORDERED: ROPIVACAINE 5 MG/ML 30 ML VIAL ONE (15:41)
[2021-06-12] MEDS ORDERED: TRANEXAMIC ACID 1,000 MG/10 ML VIAL ONE (15:41)
[2021-06-12] MEDS ORDERED: PROPOFOL 10 MG/ML 20 ML VIAL IV ONE (15:41)
--- NOTE | 2021-06-12 16:32 | P.ANPRN ---
Procedure Note - Anesthesia - Nerve Block Performed Left Adductor Canal Time Out Performed: Yes (13:50) Date of Procedure: 06/12/21 Procedure Start Time: 13:50 Procedure Stop Time: 14:02 Location of Patient: PreOp Indication: Acute Post-Operative Pain, Requested by Surgeon (Dr Nathan) Sedation Type: Sedate with meaningful contact maintained Preparation: Sterile Prep, Sterile Dressing Position: Supine Catheter: Indwelling Needle Types: Pajunk Needle Gauge: 21 Ultrasound used to visualize needle placement: Yes Ultrasound used to observe medication spread: Yes Injectate: 0.5% Ropivacaine (see comment for volume) (15cc) Blood Aspirated: No Pain Paresthesia on Injection Noted: No Resistance on Injection: Normal Image Stored and Saved: Yes Events: Uneventful and Well Tolerated
--- NOTE | 2021-06-12 16:33 | P.ANPRN ---
Procedure Note - Anesthesia - Nerve Block Performed Left iPack Time Out Performed: Yes Date of Procedure: 06/12/21 Procedure Start Time: 14:03 Procedure Stop Time: 14:09 Location of Patient: PreOp Indication: Acute Post-Operative Pain, Requested by Surgeon (Dr Nathan) Sedation Type: Sedate with meaningful contact maintained Preparation: Sterile Prep Position: Supine Catheter: None Needle Types: Pajunk Needle Gauge: 21 Ultrasound used to visualize needle placement: Yes Ultrasound used to observe medication spread: Yes Injectate: 0.5% Ropivacaine (see comment for volume) (15cc + 5 cc PF Normal saline) Blood Aspirated: No Pain Paresthesia on Injection Noted: No Resistance on Injection: Normal Image Stored and Saved: Yes Events: Uneventful and Well Tolerated
[2021-06-12] MEDS ORDERED: TOBRAMYCIN SULFATE 1.2 GM VIAL MISCELLANE ONE (16:36)
[2021-06-12] MEDS ORDERED: ceFAZolin 3,000 MG in SODIUM CHLORIDE 0.9% IRRIGATIO 3,000 ML IRRIGATION ONE (16:37)
[2021-06-12] MEDS ORDERED: LACTATED RINGERS 1,000 ML IV ONE (17:02)
--- NOTE | 2021-06-12 17:12 | P.OP ---
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 ANESTHESIA: Spinal ESTIMATED BLOOD LOSS: 50 ml. PURCHASING OFFICER: Isabella Maza PA-C (assistance with: patient positioning, retraction, exposure, hemostasis, leg positioning, implantation, irrigation, closure, dressing) COMPLICATIONS: None apparent. COMPONENTS IMPLANTED: Journey II total knee system from [employer], [employer] INDICATIONS: Shani is a 70 year old female with a history of left knee osteoarthritis. The patient's knee is end-stage, has mild genu valgum, and conservative management has failed. The operation of knee replacement has been discussed at length in the office, as well as potential risks and complications. These are inclusive of, but not limited to: bleeding, infection, scarring, discomfort, blood vessel and nerve damage, need for further surgery, failure to relieve symptoms, persistence, recurrence, or worsening of problems, loosening, dislocation, wear, blood clot, pulmonary embolism, , gait dysfunction, stiffness, and other risks as discussed in the office. [employer] computer templating was performed several weeks preoperatively and the surgical plan was confirmed and approved. The patient elects to proceed and the consent form has been signed. PROCEDURE: The patient was taken to the operating room and positioned on the operating room table in the supine position. Anesthesia was initiated. Care was taken to make sure that all pressure points were adequately padded. The operative lower extremity was prepped and draped in the usual aseptic fashion using ChloraPrep. Ioban drape was used for the case and the patient received intravenous antibiotics within one hour of the incision. A pneumotourniquet and leg ji were used for the case. The limb was exsanguinated with an Esmarch bandage and the tourniquet was inflated to 300 mmHg. Time-out was called confirming the patient's identity, side, procedure and administration of antibiotics and tranexamic acid. The incision was then created midline directly over the left knee, carried down through skin and into the subcutaneous tissues and down to fascia. Full thickness subcutaneous medial flap was developed. Medial parapatellar arthrotomy was performed and the interior of the knee was inspected. There was end-stage osteoarthritis of the knee with a mild to moderate genu valgum type deformity. The fat pad was excised and proximal medial release on the tibia was completed using meticulous dissection and a curved osteotome. The anterior cruciate ligament was taken down. Note was made of significant attrition of the anterior and significant degenerative appearance of the cruciate ligaments. The exposure was excellent. The knee was flexed 90 degrees and the patella was everted. The [employer] pre- made distal cutting block was attached and pinned into position. The planned cut was analyzed visually and with the alignment carlos and found to be satisfactory without the need for any adjustment. The oscillating saw was then used to make the distal femoral cut and make the alignment holes for the 5 in 1 block. This cut was confirmed to be flat with the flat end of an osteotome. The 5 in 1 block was then used to create the anterior posterior condylar resections and the chamfer cuts. The retractors were placed around the tibia and the tibial surface was addressed. The [employer] pre-made guide was placed onto the exposed tibial surface and pinned into position to carlita the rotational alignment. The alignment of the guide was checked for depth of plannned resection, slope, and varus valgus. Guide was confirmed to be in good position and the tibial cut was then created with protection of the posterior neurovascular structures and the collateral ligaments. The tibial cut surface was removed and sized. Spacer block technique was then used to confirm that the flexion and extension gaps were equal. Soft tissue releases and adjustment of the tibial and/or femoral cuts were made, as necessary, until the gaps were equal. This included release of the posterior cruciate ligament, which was excessively tight in this patient. The trial components were inserted. The tibial tray was allowed to self center and the patella was noted to track very well. The position of the tibial component was marked and noted to be nearly exactly aligned with the pre- drilled holes from the [employer] guide. The tibia was then finished for a stemmed tibial component. Patellar resurfacing was performed using a reamer. The size of the required patellar component was estimated and the patellar surface was then reamed down to a residual thickness which would recreate the tulalip thickness with the component. The exact placement of the patellar component was adjusted for position based on preoperative x-rays and intraoperative findings. Trial components were removed and the cut surfaces of the bone were pulse lavaged thoroughly and dried. Cement was mixed on the back table and applied to the final components. Cement was then applied to the tibial surface and pressurized into the surface using finger pressurization technique. The tibial component was then applied and excess cement was removed after it was impacted securely and noted to be flush with the cut surface. In similar fashion, the cement was applied to the cut femoral surface, pressurized in using finger pressurization and the component was impacted into place. Excess cement was removed. The polyethylene spacer was then implanted and locked into position. The patellar component was then applied in similar technique and a patellar clamp was used to hold the patella in place as the cement hardened. Once the cement had fully hardened, the knee was reinspected. Any other cement extrusion was removed and final kinematic testing showed range of motion from 0 to 130 degrees with excellent stability, both medially and laterally and appropriate alignment of the leg. Patellar tracking was excellent. The knee was then thoroughly pulse lavaged with normal saline. The tourniquet was deflated and hemostasis was obtained with electrocautery and IV tranexamic acid, 1 g given at the start of the operation and 1 g at the start of closure. Closure was with #2 Ethibond in the fascia/capsule and supplemented with #2 Quill, 2-0 Vicryl suture was used for the subcutaneous tissues and 3-0 Quill for the skin. Dermabond/Steri-Strips were then applied. A lightly compressive dressing was applied using Webril and an Hakan wrap. The patient was then transfe rred to stretcher and taken to the recovery room in stable condition. Sponge and needle counts were correct.
[2021-06-12] MEDS ORDERED: NA PHOS,M-B/NA PHOS,DI-BA 133 ML ENEMA RECTAL PRN (17:46)
[2021-06-12] MEDS ORDERED: bisacodyL 10 MG SUPP RECTAL PRN (17:46)
[2021-06-12] MEDS ORDERED: HYDROmorphone 0.2 MG/1 ML SYRINGE IVP PRN (17:46)
[2021-06-12] MEDS ORDERED: HYDROcodone/APAP 5-325MG 1 EACH TAB PO PRN (17:46)
[2021-06-12] MEDS ORDERED: ONDANSETRON 4 MG/2 ML VIAL IVP PRN (17:46)
[2021-06-12] MEDS ORDERED: TEMAZEPAM 15 MG CAP PO PRN (17:46)
[2021-06-12] MEDS ORDERED: NALOXONE 0.4 MG/ML 1 ML VIAL IV PRN (17:46)
[2021-06-12] MEDS ORDERED: MAGNESIUM HYDROXIDE 2,400 MG/10 ML CUP PO PRN (17:46)
[2021-06-12] MEDS ORDERED: HYDROmorphone 0.5 MG/0.5 ML SYRINGE IVP PRN ×2 (17:46)
[2021-06-12 18:06] VITALS: RESP 16
--- NOTE | 2021-06-12 18:35 | XR ---
EXAMINATION TYPE: XR knee limited LT DATE OF EXAM: 06/12/2021 CLINICAL HISTORY: Left knee pain and arthritis status post total knee replacement. TECHNIQUE: Portable AP and crosstable lateral views of the left knee are obtained immediately postop eratively. COMPARISON: None FINDINGS: Metallic hardware from total left knee arthroplasty is seen and appears satisfactory in al ignment and position. There is evidence of recent surgery with diffuse subcutaneous. IMPRESSION: METALLIC HARDWARE FROM TOTAL LEFT KNEE ARTHROPLASTY IS SATISFACTORY IN ALIGNMENT.
[2021-06-12] MEDS ORDERED: SENNOSIDES-DOCUSATE SODIUM 1 EACH TAB PO SCH (21:00)
[2021-06-12] MEDS ORDERED: ALBUTEROL NEBULIZED 2.5 MG/3 ML INHALATION PRN (21:40)
[2021-06-12] MEDS ORDERED: ALPRAZolam 0.25 MG TAB PO PRN (21:40)
[2021-06-12 21:53] LABS: Glucose,Whole Blood 274 mg/dL (75-99)
[2021-06-12 21:53] LABS: Glucose,Whole Blood 236 mg/dL (75-99)
[2021-06-12] MEDS: ASPIRIN 81 MG PO SCH (22:56)
[2021-06-12] MEDS: HYDROcodone/APAP 7.5-325MG 1 EACH TAB PO PRN (22:57)
[2021-06-12] MEDS: busPIRone HCl 5 MG TAB PO SCH (22:58)
[2021-06-12] MEDS: SERTRALINE 25 MG TAB PO SCH (22:59)
[2021-06-12] MEDS: INSULIN ASPART (NovoLOG) 100 UNIT/ML VIAL SQ SCH (22:59)
[2021-06-13] MEDS: LACTATED RINGERS 1,000 ML IV SCH (05:40)
[2021-06-13] MEDS: HYDROcodone/APAP 7.5-325MG 1 EACH TAB PO PRN ×2 (05:41→12:36)
[2021-06-13 06:28] LABS: Anisocytosis Slight; Basophils % (A) 0 %; Eosinophils % (A) 0 %; HCT 32.6 % (34.0-46.0); HGB 10.3 gm/dL (11.4-16.0); Lymphocytes # (A) 0.9 k/uL (1.0-4.8); Lymphocytes % (A) 9 %; MCH 26.7 pg (25.0-35.0); MCHC 31.7 g/dL (31.0-37.0); MCV 84.2 fL (80.0-100.0); Mean Platelet Volume 6.4; Monocytes # (A) 0.5 k/uL (0-1.0); Monocytes % (A) 6 %; Neutrophils # (A) 8.4 k/uL (1.3-7.7); Neutrophils % (A) 84 %; Platelet Count 385 k/uL (150-450); RBC 3.87 m/uL (3.80-5.40); RDW 16.7 % (11.5-15.5); WBC 9.9 k/uL (3.8-10.6)
--- NOTE | 2021-06-13 07:21 | P.PN ---
Progress Note - Text The patient is status post left adductor canal catheter placement. The catheter was placed for postoperative pain control, status post total knee arthroplasty. Ropivacaine 0.2% is infusing at 8 mLs per hour. The patient has no complaints of left lower extremity numbness or weakness. Patient's VAS score is 3 4-10. Patient states she has a dull ache in the joint area but it is tolerable. Assessment: Patient's adductor canal catheter is in place and working appropriately. Plan: continue infusion and adjust it as needed.
[2021-06-13] MEDS ORDERED: PANTOPRAZOLE 40 MG TABLET PO SCH (07:30)
[2021-06-13] MEDS ORDERED: FLUTICASONE 110 MCG INHALER INHALATION SCH (08:00)
[2021-06-13 08:06] LABS: Glucose,Whole Blood 153 mg/dL (75-99)
[2021-06-13] MEDS: INSULIN ASPART (NovoLOG) 100 UNIT/ML VIAL SQ SCH ×2 (08:19→12:52)
[2021-06-13] MEDS: busPIRone HCl 5 MG TAB PO SCH (08:21)
[2021-06-13] MEDS: ASPIRIN 81 MG PO SCH (08:22)
[2021-06-13] MEDS: SERTRALINE 25 MG TAB PO SCH (08:24)
[2021-06-13] MEDS ORDERED: MELOXICAM 7.5 MG TAB PO SCH (09:00)
[2021-06-13] MEDS ORDERED: metFORMIN 500 MG TAB PO SCH (09:00)
[2021-06-13] MEDS ORDERED: FLUTICASONE 50MCG/SPRAY NASAL 16GM EA NOSTRIL SCH (09:00)
[2021-06-13] MEDS ORDERED: LORATADINE 10 MG TAB PO SCH (09:00)
[2021-06-13] MEDS ORDERED: NITROFURANTOIN MONOHYD/M-CRYST 100 MG CAP PO SCH (09:00)
[2021-06-13] MEDS ORDERED: valACYclovir 500 MG TAB PO SCH (09:00)
[2021-06-13] MEDS ORDERED: MULTIVITAMINS, THERA 1 EACH TAB PO SCH (09:00)
[2021-06-13] MEDS ORDERED: DILTIAZEM CD 120 MG CAP.ER.24H PO SCH (09:00)
[2021-06-13] MEDS ORDERED: ATORVASTATIN 10 MG TAB PO SCH (09:00)
--- NOTE | 2021-06-13 10:59 | P.DS ---
Providers Expected date of discharge: 06/13/21 Attending physician: Benito Nathan Consults: 06/12/21 17:46 Consult Physician Routine Consulting Provider: Roman Mcfarlane Consult Reason/Comments: Medical management Do you want consulting provider notified?: Yes 06/12/21 19:12 Consult Physician Routine Consulting Provider: Freddy Young Consult Reason/Comments: medical managment Do you want consulting provider notified?: Yes Primary care physician: Roman Syriac - Discharge Diagnosis(es) (1) Osteoarthritis of left knee Current Visit: Yes Status: Acute (2) S/P total knee arthroplasty Current Visit: Yes Status: Acute Hospital Course: This is a 70-year-old female with known history of degenerative arthritis of the left knee. The patient presented for evaluation as an outpatient. After discussion and consideration patient elects to proceed with total knee arthroplasty. The patient is seen preoperatively by Dr. Nathan and medically cleared for surgery by their primary care physician. Patient is admitted to [facility] on 06/12/2021 for total knee arthroplasty. The procedure is performed without complication or sequelae. The patient is doing well postoperatively. Labs and vital signs are stable on day of discharge. On day of discharge patient's knee incision is healing well. There is minimal erythema. There is no drainage noted at this time. There is minimal soft tissue swelling to the knee. Patient has full foot and ankle motion without difficulty or pain. Calf is soft and nontender to palpation. Neurovascular status to the left lower extremity is intact. Patient is discharged home in good condition. Please see med rec for accurate list of home medications. Plan - Discharge Summary Discharge Rx Participant: Yes New Discharge Prescriptions: New Aspirin [Adult Low Dose Aspirin EC] 81 mg PO BID #1 tab Sennosides-Docusate Sodium [Senokot-S] 1 tab PO BID #60 tablet Meloxicam [Mobic] 1 - 2 tab PO DAILY PRN #60 tab PRN Reason: Pain Gabapentin [Neurontin] 300 mg PO BID 5 Days #10 cap HYDROcodone/APAP 7.5-325MG [[place] 7.5-325] 1 - 2 tab PO Q6HR PRN #32 tab PRN Reason: Pain Ondansetron Odt [Zofran Odt] 4 mg PO Q8HR PRN #14 tab PRN Reason: Nausea No Action Budesonide [Pulmicort Flexhaler] 2 puff INHALATION RT-BID valACYclovir [Valtrex] 500 mg PO 1200 Albuterol Sulfate [Proair Respiclick] 1 puff INHALATION RT-Q6H PRN PRN Reason: Shortness Of Breath Omeprazole Magnesium [PriLOSEC OTC] 20 mg PO 1200 Cetirizine HCl [Zyrtec] 10 mg PO 1200 Fluticasone Nasal [place] [Flonase Nasal [place]] 1 spray EA NOSTRIL DAILY busPIRone HCL 15 mg PO BID traMADol HCL [Ultram] 50 mg PO Q8H PRN PRN Reason: Pain ALPRAZolam [Xanax] 0.25 mg PO BID Atorvastatin [Lipitor] 10 mg PO 1200 Cranberry(Unknown Dose) 1 tab PO DAILY Estradiol Cream [Estrace Cream 0.01%] 1 gm VAGINAL WETH Nitrofurantoin Macrocrystal [Nitrofurantoin] 100 mg PO DAILY Sertraline [Zoloft] 25 mg PO 1200 Multivitamins, Thera [Multivitamin (formulary)] 1 tab PO DAILY Aspirin [Adult Low Dose Aspirin EC] 81 mg PO HS Diltiazem HCl [Diltiazem HCl 12Hr ER] 120 mg PO BID metFORMIN HCL 500 mg PO BID Discharge Medication List Budesonide [Pulmicort Flexhaler] 2 puff INHALATION RT-BID 01/10/17 [History] Albuterol Sulfate [Proair Respiclick] 1 puff INHALATION RT-Q6H PRN 04/15/17 [History] valACYclovir [Valtrex] 500 mg PO 1200 04/15/17 [History] Cetirizine HCl [Zyrtec] 10 mg PO 1200 05/18/17 [History] Fluticasone Nasal [place] [Flonase Nasal [place]] 1 spray EA NOSTRIL DAILY 05/18/17 [History] Omeprazole Magnesium [PriLOSEC OTC] 20 mg PO 1200 05/18/17 [History] busPIRone HCL 15 mg PO BID 05/25/18 [History] ALPRAZolam [Xanax] 0.25 mg PO BID 02/15/21 [History] Aspirin [Adult Low Dose Aspirin EC] 81 mg PO HS 02/15/21 [History] Atorvastatin [Lipitor] 10 mg PO 1200 02/15/21 [History] Multivitamins, Thera [Multivitamin (formulary)] 1 tab PO DAILY 02/15/21 [History] Sertraline [Zoloft] 25 mg PO 1200 02/15/21 [History] traMADol HCL [Ultram] 50 mg PO Q8H PRN 02/15/21 [History] Cranberry(Unknown Dose) 1 tab PO DAILY 04/05/21 [History] Diltiazem HCl [Diltiazem HCl 12Hr ER] 120 mg PO BID 04/05/21 [History] Estradiol Cream [Estrace Cream 0.01%] 1 gm VAGINAL WETH 04/05/21 [History] metFORMIN HCL 500 mg PO BID 04/05/21 [History] Nitrofurantoin Macrocrystal [Nitrofurantoin] 100 mg PO DAILY 06/06/21 [History] Aspirin [Adult Low Dose Aspirin EC] 81 mg PO BID #1 tab 06/12/21 [Rx] Gabapentin [Neurontin] 300 mg PO BID 5 Days #10 cap 06/12/21 [Rx] HYDROcodone/APAP 7.5-325MG [[place] 7.5-325] 1 - 2 tab PO Q6HR PRN #32 tab 06/12/21 [Rx] Meloxicam [Mobic] 1 - 2 tab PO DAILY PRN #60 tab 06/12/21 [Rx] Ondansetron Odt [Zofran Odt] 4 mg PO Q8HR PRN #14 tab 06/12/21 [Rx] Sennosides-Docusate Sodium [Senokot-S] 1 tab PO BID #60 tablet 06/12/21 [Rx] Follow up Appointment(s)/Referral(s): Isabella Maza, [facility] [PHYSICIAN WIRELESS WATCHER] - 2 Weeks A & D,Home Care [NON-STAFF] - 1-2 Days Activity/Diet/Wound Care/Special Instructions: May bear wt as tolerated w walker. Keep Optifoam dressing intact 7 days. May shower 48h post op. Discharge Disposition: HOME WITH HOME HEALTH SERVICES
[2021-06-13 12:30] VITALS: BP 132/82; PULSE 100; TEMP 98.2
[2021-06-13 12:44] LABS: Glucose,Whole Blood 161 mg/dL (75-99)
--- NOTE | 2021-06-13 17:05 | P.CONS ---
History of Present Illness - Reason for Consult Consult date: 06/13/21 Medical management Requesting physician: Benito Nathan - Chief Complaint Left knee surgery - History of Present Illness This is a very pleasant 70-year-old patient of follows with Dr. Roman Mcfarlane. Chronic stable medical conditions include asthma, diabetes, GERD, hyperlip idemia, mitral valve prolapse, anxiety depression. Patient has undergone left total knee arthroplasty. This morning some pain is present. Did walk a bit. No nausea vomiting. Very slight dizzy. Did eat her to breakfast. No chest pain no shortness of breath. Review of systems: GEN.: None EYES: None HEENT: None NECK: None RESPIRATORY: None CARDIOVASCULAR: None GASTROINTESTINAL: None GENITOURINARY: None MUSCULOSKELETAL: Joint pains LYMPHATICS: None HEMATOLOGICAL: None PSYCHIATRY: None NEUROLOGICAL: None Past medical history to include: Asthma, diabetes, GERD, hyperlipidemia, mitral valve prolapse, back pain, anxiety depression Social history: Patient smoked less than a pack a day for about 18 years. Stopped in 1976. . Family history: Uterine cancer Physical examination: VITAL SIGNS: 98.3, 99, 16, 133 bradycardia 4, 94% room air GENERAL: BMI 33.9, sitting on a chair, awake, comfortable. EYES: Pupils equal. Conjunctiva normal. HEENT: External appearance of nose and ears normal, oral cavity grossly normal. NECK: JVD not raised; masses not palpable. HEART: First and second heart sounds are normal; no edema. LUNGS: Respiratory rate normal; clear to auscultation. ABDOMEN: Soft, nontender, liver spleen not palpable, no masses palpable. PSYCH: Alert and oriented x3; mood and affect normal. MUSCULAR skeletal: Evidence of OA. Dressing over the left knee. NEUROLOGICAL: Cranial nerves grossly intact; no facial asymmetry, power and sensation grossly intact. LYMPHATICS: No lymph nodes palpable in the axilla and neck INVESTIGATIONS, reviewed in the clinical context: White count 9.9 hemoglobin 10.3 platelets 385 Coronavirus [PCR]: Not detected Previous labs [May 24] Hemoglobin 12 potassium 4.8 creatinine 0.9 Assessment and plan: -Left total knee arthroplasty Pain management. Aspirin 81 mg twice a day for DVT prophylaxis -Obesity BMI 33.9 Weight loss measures and follow with PCP -GERD 20 mg daily -Moderate persistent Asthma: Stable Pulmicort 2+ twice a day albuterol every 6 when necessary -Diabetes mellitus type 2, oral hypoglycemic Metformin 5 mg by mouth twice a day. Follow Accu-Cheks -Depression and anxiety not otherwise specified BuSpar 50 mg twice a day, Zoloft 25 mg Xanax 0.25 by mouth twice a day -Hyperlipidemia Lipitor 10 mg daily -Mitral valve prolapse Follow clinically Care was discussed with the patient. Questions answered. Activity as tolerated. Follow Accu-Cheks. Follow-up with Dr. Mcfarlane upon discharge. Thank you Dr. Nathan Past Medical History Past Medical History: Asthma, Diabetes Mellitus, GERD/Reflux, Hyperlipidemia, Mitral Valve Prolapse (MVP) Additional Past Medical History / Comment(s): Back pain. History of Any Multi-Drug Resistant Organisms: None Reported Past Surgical History: Cholecystectomy Additional Past Surgical History / Comment(s): Tumor removed from tibia (BENIGN). Past Anesthesia/Blood Transfusion Reactions: Previous Problems w/ Anesthesia Additional Past Anesthesia/Blood Transfusion Reaction / Comm: 10 yrs ago after epidural injection in back had difficulty breathing seen in ER- has had injections since without issue. Past Psychological History: Anxiety, Depression Additional Psychological History / Comment(s): OCD Smoking Status: Never smoker Past Alcohol Use History: None Reported Additional Past Alcohol Use History / Comment(s): SMOKED FOR 18 YRS, LESS THAN 1 PPD, QUIT IN 1976. Past Drug Use History: None Reported - Past Family History Sister(s) Family Medical History: Cancer Additional Family Medical History / Comment(s): Uterine cancer. Medications and Allergies Home Medications Medication Instructions Recorded Confirmed Type Budesonide [Pulmicort Flexhaler] 2 puff INHALATION RT-BID 01/10/17 06/06/21 History Albuterol Sulfate [Proair 1 puff INHALATION RT-Q6H PRN 04/15/17 06/06/21 History Respiclick] valACYclovir [Valtrex] 500 mg PO 1200 04/15/17 06/12/21 History Cetirizine HCl [Zyrtec] 10 mg PO 1200 05/18/17 06/12/21 History Fluticasone Nasal [place] [Flonase 1 spray EA NOSTRIL DAILY 05/18/17 06/06/21 History Nasal [place]] Omeprazole Magnesium [PriLOSEC OTC] 20 mg PO 1200 05/18/17 06/12/21 History busPIRone HCL 15 mg PO BID 05/25/18 06/12/21 History ALPRAZolam [Xanax] 0.25 mg PO BID 02/15/21 06/12/21 History Aspirin [Adult Low Dose Aspirin EC] 81 mg PO HS 02/15/21 06/06/21 History Atorvastatin [Lipitor] 10 mg PO 1200 02/15/21 06/12/21 History Multivitamins, Thera [Multivitamin 1 tab PO DAILY 02/15/21 06/06/21 History (formulary)] Sertraline [Zoloft] 25 mg PO 1200 02/15/21 06/12/21 History Cranberry(Unknown Dose) 1 tab PO DAILY 04/05/21 06/06/21 History Diltiazem HCl [Diltiazem HCl 12Hr 120 mg PO BID 04/05/21 06/12/21 History ER] Estradiol Cream [Estrace Cream 1 gm VAGINAL WETH 04/05/21 06/06/21 History 0.01%] metFORMIN HCL 500 mg PO BID 04/05/21 06/12/21 History Nitrofurantoin Macrocrystal 100 mg PO DAILY 06/06/21 06/12/21 History [Nitrofurantoin] Aspirin [Adult Low Dose Aspirin EC] 81 mg PO BID #1 tab 06/12/21 Rx Gabapentin [Neurontin] 300 mg PO BID 5 Days #10 cap 06/12/21 Rx HYDROcodone/APAP 7.5-325MG [[place] 1 - 2 tab PO Q6HR PRN #32 tab 06/12/21 Rx 7.5-325] Meloxicam [Mobic] 1 - 2 tab PO DAILY PRN #60 tab 06/12/21 Rx Ondansetron Odt [Zofran Odt] 4 mg PO Q8HR PRN #14 tab 06/12/21 Rx Sennosides-Docusate Sodium 1 tab PO BID #60 tablet 06/12/21 Rx [Senokot-S] Allergies Allergy/AdvReac Type Severity Reaction Status Date / Time lactose Allergy Unknown Verified 06/12/21 13:19 levofloxacin [From Levaquin] Allergy Rash/Hives Verified 06/12/21 13:19 metronidazole [From Flagyl] Allergy Rash/Hives Verified 06/12/21 13:19 Sulfa (Sulfonamide Allergy Rash/Hives Verified 06/12/21 13:19 Antibiotics) Physical Exam Vitals: Vital Signs Temp Pulse Pulse Pulse Resp BP Pulse Ox 06/13/21 07:54 98.3 F 99 16 133/84 94 L 06/13/21 04:47 97.8 F 106 H 16 143/73 06/12/21 23:49 97.8 F 106 H 16 169/92 06/12/21 22:00 98.6 F 97 16 146/84 98 06/12/21 21:45 98 147/82 98 06/12/21 21:30 100 164/86 98 06/12/21 21:15 98 146/84 97 06/12/21 21:00 96 147/82 98 06/12/21 19:45 96 155/82 98 06/12/21 19:30 94 154/88 98 06/12/21 19:15 97 16 153/89 98 06/12/21 19:00 98.7 F 100 16 164/86 98 06/12/21 18:24 98.7 F 98 16 146/84 97 06/12/21 18:20 88 16 142/74 96 06/12/21 18:05 86 16 156/74 97 06/12/21 17:54 85 16 134/66 98 06/12/21 17:39 97.3 F L 84 12 105/58 97 06/12/21 14:09 101 H 16 157/71 99 06/12/21 13:10 97.8 F 109 H 18 168/77 97 Intake and Output 06/12/21 06/13/21 06/13/21 22:59 06:59 14:59 Intake Total 451 Output Total 750 Balance -299 Intake: IV 451 Output: Urine 700 Estimated Blood Loss 50 Other: Voiding Method Toilet # Voids 1 1 1 Weight 86.7 kg Results CBC & Chem 7: 06/13/21 05:38 Labs: Abnormal Lab Results - Last 24 Hours (Table) 06/12/21 06/12/21 06/12/21 Range/Units 13:32 21:50 21:52 Hgb (11.4-16.0) gm/dL Hct (34.0-46.0) % RDW (11.5-15.5) % Neutrophils # (1.3-7.7) k/uL Lymphocytes # (1.0-4.8) k/uL POC Glucose (mg/dL) 133 H 236 H 274 H (75-99) mg/dL 06/13/21 06/13/21 Range/Units 05:38 08:04 Hgb 10.3 L (11.4-16.0) gm/dL Hct 32.6 L (34.0-46.0) % RDW 16.7 H (11.5-15.5) % Neutrophils # 8.4 H (1.3-7.7) k/uL Lymphocytes # 0.9 L (1.0-4.8) k/uL POC Glucose (mg/dL) 153 H (75-99) mg/dL
== END 2021-06-13 13:55 | disposition home health service (06) ==
LOC: OR 12:47 → 4FBP 18:05 → OR 06-13 13:55
PROVIDERS: ATTEND Orthopaedic Surgery
DX: M17.12 Unilateral primary osteoarthritis, left knee (principal); Z20.822 Contact with and (suspected) exposure to COVID-19
CPT/HCPCS: 27447; 87635; 73560; J2250; J1100; J0690 ×2; J2405; J3010; J3260; J1170; 64448; 64999; 76942; 85025

== ENCOUNTER 2021-07-10 12:27 | Emergency (ER) | payer MEDICARE ==
[2021-07-10 13:16] VITALS: BP 131/75; PULSE 103; RESP 19; TEMP 98.3
[2021-07-10] MEDS ORDERED: SODIUM CHLORIDE 0.9% 1,000 ML IV ONE (13:33)
--- NOTE | 2021-07-10 14:24 | US ---
EXAMINATION TYPE: US venous doppler duplex LE LT DATE OF EXAM: 07/10/2021 2:17 PM COMPARISON: NONE CLINICAL HISTORY: pain. Left knee pain and swelling for the past 2 weeks post left knee replacement o n 06/12/21 SIDE PERFORMED: Left TECHNIQUE: The lower extremity deep venous system is examined utilizing real time linear array sonog fernando with graded compression, doppler sonography and color-flow sonography. VESSELS IMAGED: Common Femoral Vein Deep Femoral Vein Greater Saphenous Vein * Femoral Vein Popliteal Vein Small Saphenous Vein * Proximal Calf Veins (* superficial vessels) Left Leg: Negative for DVT No DVT seen at this time IMPRESSION: Grayscale, color doppler, spectral doppler imaging performed of the deep veins of the lo wer extremities. There is normal flow, compressibility, vascular waveforms.
--- NOTE | 2021-07-10 14:33 | ED ---
Extremity Problem HPI - General Chief complaint: Extremity Problem,Nontraumatic Stated complaint: lt knee pain Time Seen by Provider: 07/10/21 13:32 Source: patient, RN notes reviewed Mode of arrival: wheelchair Limitations: no limitations - History of Present Illness Initial comments: 71-year-old female presents emergency Department with chief complaint of left knee pain. Patient states she has not surgery in April by Dr. Nathan. Patient was at physical therapy has been having increasing pain in theswelling of her leg concern for possible DVT. Denies any chest pain or shortness breath she does take an aspirin. She does admit that she's been recently walking on her legs more without any assisted devices. Patient offers no complaints. - Related Data Home Medications Medication Instructions Recorded Confirmed Budesonide [Pulmicort Flexhaler] 2 puff INHALATION RT-BID 01/10/17 06/06/21 Albuterol Sulfate [Proair 1 puff INHALATION RT-Q6H PRN 04/15/17 06/06/21 Respiclick] valACYclovir [Valtrex] 500 mg PO 1200 04/15/17 06/12/21 Cetirizine HCl [Zyrtec] 10 mg PO 1200 05/18/17 06/12/21 Fluticasone Nasal [place] [Flonase 1 spray EA NOSTRIL DAILY 05/18/17 06/06/21 Nasal [place]] Omeprazole Magnesium [PriLOSEC OTC] 20 mg PO 1200 05/18/17 06/12/21 busPIRone HCL 15 mg PO BID 05/25/18 06/12/21 ALPRAZolam [Xanax] 0.25 mg PO BID 02/15/21 06/12/21 Aspirin [Adult Low Dose Aspirin EC] 81 mg PO HS 02/15/21 06/06/21 Atorvastatin [Lipitor] 10 mg PO 1200 02/15/21 06/12/21 Multivitamins, Thera [Multivitamin 1 tab PO DAILY 02/15/21 06/06/21 (formulary)] Sertraline [Zoloft] 25 mg PO 1200 02/15/21 06/12/21 Cranberry(Unknown Dose) 1 tab PO DAILY 04/05/21 06/06/21 Diltiazem HCl [Diltiazem HCl 12Hr 120 mg PO BID 04/05/21 06/12/21 ER] Estradiol Cream [Estrace Cream 1 gm VAGINAL WETH 04/05/21 06/06/21 0.01%] metFORMIN HCL 500 mg PO BID 04/05/21 06/12/21 Nitrofurantoin Macrocrystal 100 mg PO DAILY 06/06/21 06/12/21 [Nitrofurantoin] Previous Rx's Medication Instructions Recorded Aspirin [Adult Low Dose Aspirin EC] 81 mg PO BID #1 tab 06/12/21 Gabapentin [Neurontin] 300 mg PO BID 5 Days #10 cap 06/12/21 HYDROcodone/APAP 7.5-325MG [[place] 1 - 2 tab PO Q6HR PRN #32 tab 06/12/21 7.5-325] Meloxicam [Mobic] 1 - 2 tab PO DAILY PRN #60 tab 06/12/21 Ondansetron Odt [Zofran Odt] 4 mg PO Q8HR PRN #14 tab 06/12/21 Sennosides-Docusate Sodium 1 tab PO BID #60 tablet 06/12/21 [Senokot-S] Allergies Allergy/AdvReac Type Severity Reaction Status Date / Time lactose Allergy Unknown Verified 07/10/21 13:16 levofloxacin [From Levaquin] Allergy Rash/Hives Verified 07/10/21 13:16 metronidazole [From Flagyl] Allergy Rash/Hives Verified 07/10/21 13:16 Sulfa (Sulfonamide Allergy Rash/Hives Verified 07/10/21 13:16 Antibiotics) Review of Systems ROS Statement: Those systems with pertinent positive or pertinent negative responses have been documented in the HPI. ROS Other: All systems not noted in ROS Statement are negative. Past Medical History Past Medical History: Asthma, Diabetes Mellitus, GERD/Reflux, Mitral Valve Prolapse (MVP) Additional Past Medical History / Comment(s): OCD History of Any Multi-Drug Resistant Organisms: None Reported Past Surgical History: Cholecystectomy, Orthopedic Surgery Additional Past Surgical History / Comment(s): Tumor removed from tibia (BENIGN). Total left knee arthroplasty Past Anesthesia/Blood Transfusion Reactions: No Reported Reaction Additional Past Anesthesia/Blood Transfusion Reaction / Comment(s): after epidural injection in back had difficulty breathing seen in ER- has had injections since without issue Past Psychological History: Anxiety, Depression Smoking Status: Never smoker Past Alcohol Use History: None Reported Past Drug Use History: None Reported - Past Family History Sister(s) Family Medical History: Cancer Additional Family Medical History / Comment(s): Uterine cancer. General Exam Limitations: no limitations General appearance: alert, in no apparent distress Neck exam: Present: normal inspection. Absent: tenderness, meningismus, lymphadenopathy Respiratory exam: Present: normal lung sounds bilaterally. Absent: respiratory distress, wheezes, rales, rhonchi, stridor Cardiovascular Exam: Present: regular rate, normal rhythm, normal heart sounds. Absent: systolic murmur, diastolic murmur, rubs, gallop, clicks Extremities exam: Present: other (Left leg there is mild swelling, erythem anoincreasedwarmthorswellingoftheleftkneethereissomemildcalf,thightenderness.) Neurological exam: Present: alert Skin exam: Present: warm, dry, intact, normal color. Absent: rash Course Vital Signs 07/10/21 13:12 Temperature 98.3 F Pulse Rate 103 H Respiratory 19 Rate Blood Pressure 131/75 O2 Sat by Pulse 100 Oximetry Medical Decision Making - Medical Decision Making Ultrasound is negative. Patient will be advised to rest ice and elevate. Follow-up with orthopedics and return for any worsening change in symptoms. There is no evidence of DVT no evidence of septic joint. Disposition Clinical Impression: Left leg swelling, S/P total knee arthroplasty Disposition: HOME SELF-CARE Condition: Stable Instructions (If sedation given, give patient instructions): Leg Edema (ED) Additional Instructions: Please return to the Emergency Department if symptoms worsen or any other concerns. Is patient prescribed a controlled substance at d/c from ED?: No Referrals: Roman Mcfarlane MD [Primary Care Provider] - 1-2 days Time of Disposition: 14:32
== END 2021-07-10 15:05 | disposition home or self-care (01) ==
LOC: EC 12:27
DX: R22.42 Localized swelling, mass and lump, left lower limb (principal); J45.909 Unspecified asthma, uncomplicated; E11.9 Type 2 diabetes mellitus without complications; K21.9 Gastro-esophageal reflux disease without esophagitis; F41.9 Anxiety disorder, unspecified; F32.A Depression, unspecified; Z96.652 Presence of left artificial knee joint; Z79.84 Long term (current) use of oral hypoglycemic drugs; Z79.82 Long term (current) use of aspirin; Z88.1 Allergy status to other antibiotic agents; Z88.2 Allergy status to sulfonamides; Z90.49 Acquired absence of other specified parts of digestive tract
CPT/HCPCS: 93005; 99283

== ENCOUNTER → 2024-10-19 | Outpatient (CLI) | payer MEDICARE ==
[2024-10-19 13:38] LABS: INR 0.9 (<1.2); Prothrombin Time 10.1 sec (10.0-12.5)
[2024-10-19 13:43] LABS: Partial Thromboplastin Time 20.7 sec (22.0-30.0)
--- NOTE | 2024-10-19 13:59 | XR ---
EXAMINATION TYPE: XR chest 2V DATE OF EXAM: 10/19/2024 1:46 PM COMPARISON: 04/15/2017 CLINICAL INDICATION: Female, 74 years old with history of PRE SURGICAL TESTING, TECHNIQUE: XR chest 2V view(s) obtained. FINDINGS: The heart size is normal. The pulmonary vasculature is normal. The lungs are clear. IMPRESSION: 1. No acute pulmonary process. [facility], , 10/19/2024 1:56 PM
[2024-10-19 15:19] LABS: Basophils # (A) 0.13 X 10*3/uL (0.00-0.10); Basophils % (A) 1.7 %; Eosinophils # (A) 0.13 X 10*3/uL (0.04-0.35); Eosinophils % (A) 1.7 %; HCT 38.8 % (37.2-46.3); HGB 11.8 g/dL (12.0-15.0); MCH 26.9 pg (27.0-32.0); MCHC 30.4 g/dL (32.0-37.0); MCV 88.6 FL (80.0-97.0); Mean Platelet Volume 9.2 FL (9.5-12.2); Monocytes # (A) 0.66 X 10*3/uL (0.20-1.00); Monocytes % (A) 8.5 %; NRBC Per 100 WBC 0 X 10*3/uL (0.00-0.01); Neutrophils # (A) 5.45 X 10*3/uL (1.80-7.70); Neutrophils % (A) 69.8 %; Platelet Count 427 X 10*3/uL (140-440); RBC 4.38 X 10*6/uL (4.10-5.20); RDW 15.3 % (11.5-14.5); WBC 7.79 X 10*3/uL (4.50-10.00)
[2024-10-19 18:54] LABS: Calcium 9.5 mg/dL (8.7-10.3); Carbon Dioxide 25.6 mmol/L (21.6-31.8); Chloride 101 mmol/L (96-109); Glucose 167 mg/dL (70-110); Potassium 4.6 mmol/L (3.5-5.5); Sodium 139 mmol/L (135-145)
[2024-10-20 16:14] LABS: Appearance,Urine Cloudy (Clear); Bilirubin,Urine Negative (Negative); Blood,Urine Negative (Negative); Color,Urine Yellow (Yellow); Ketones,Urine Negative (Negative); Nitrite,Urine Positive (Negative); PH, Urine 5.5; Specific Gravity,Urine 1.024 (1.001-1.030); Urobilinogen,Urine 0.2 E.U./DL
[2024-10-20 16:51] LABS: Bacteria,Urine 4+ (None Seen); Calcium Oxalate Crystals,Urine Present (None Seen)
== END | disposition home or self-care (01) ==
LOC: LABPAT 12:33
PROVIDERS: ATTEND Orthopaedic Surgery Orthopaedic Surgery of the Spine
DX: Z01.818 Encounter for other preprocedural examination (principal); Z22.322 Carrier or suspected carrier of Methicillin resistant Staphylococcus aureus; M48.00 Spinal stenosis, site unspecified
CPT/HCPCS: 71046; 80048; 81001; 85025; 85610; 85730; 86850; 86900; 86901; 87070; 93005

== ENCOUNTER 2024-10-28 06:28 | Inpatient (IN) | payer MEDICARE ==
[2024-10-23 15:57] VITALS: BMI 35.2
[2024-10-28] MEDS ORDERED: HYDROmorphone 0.5 MG/0.5 ML SYRINGE IVP PRN (07:00)
[2024-10-28] MEDS: IV FLUID CONTINUATION 1,000 ML IV ONE (07:27)
[2024-10-28] MEDS: LACTATED RINGERS 1,000 ML IV SCH (07:54)
[2024-10-28 07:55] LABS: Glucose,Whole Blood 167 mg/dL (70-110)
[2024-10-28] MEDS: ONDANSETRON 4 MG/2 ML VIAL IVP ONE (07:55)
[2024-10-28] MEDS: ALBUTEROL NEBULIZED 2.5 MG/3 ML INHALATION STA (07:57)
[2024-10-28] MEDS ORDERED: GLYCOPYRROLATE 0.2 MG/ML 2 ML VIAL ONE (08:23)
[2024-10-28] MEDS ORDERED: HYDROmorphone (PF) 1 MG/ML ONE (08:23)
[2024-10-28] MEDS ORDERED: SUCCINYLCHOLINE CHLORIDE 200 MG/10 ML VIAL IV ONE (08:23)
[2024-10-28] MEDS ORDERED: fentaNYL (PF) 50 MCG/ML 2 ML AMP ONE (08:23)
[2024-10-28] MEDS ORDERED: KETAMINE HCL IN 0.9 % NACL 50 MG/5 ML SYRINGE ONE (08:23)
[2024-10-28] MEDS ORDERED: TRANEXAMIC 1,000 MG/100ML-NACL PREMIX BAG ONE (08:23)
[2024-10-28] MEDS ORDERED: LIDOCAINE 1% INJ 10MG/ML (20 ML MDV) ONE (08:23)
[2024-10-28] MEDS ORDERED: PROPOFOL 10 MG/ML 20 ML VIAL IV ONE (08:23)
[2024-10-28] MEDS ORDERED: ROCURONIUM 10 MG/ML (5 ML VIAL) IV ONE (08:23)
[2024-10-28] MEDS ORDERED: NEOSTIGMINE 1 MG/ML 10 ML VIAL ONE (08:23)
[2024-10-28] MEDS ORDERED: MIDAZOLAM 2 MG/2 ML VIAL ONE (08:23)
[2024-10-28] MEDS: ceFAZolin 2 GM in DEXTROSE 5% IN WATER 50 ML IVPB PRN (08:28)
[2024-10-28] MEDS: THROMBIN (BOVINE) 5,000 UNIT VIAL TOPICAL ONE (08:28)
[2024-10-28] MEDS: ceFAZolin 1,000 MG in SODIUM CHLORIDE 0.9% IRRIGATIO 1,000 ML IRRIGATION PRN ×2 (09:02→10:07)
[2024-10-28] MEDS: LIDOCAINE 2%-EPI 1:100,000 20 ML VIAL SQ ONE (09:02)
[2024-10-28] MEDS: BUPIVACAINE (PF) 0.5% 30 ML VIAL SQ ONE (09:02)
[2024-10-28] MEDS: LACTATED RINGERS 1,000 ML IV ONE (10:08)
[2024-10-28] MEDS ORDERED: BENZOCAINE/MENTHOL LOZENG 1 EACH LOZENGE MUCOUS MEM PRN (11:56)
[2024-10-28] MEDS ORDERED: ONDANSETRON 4 MG/2 ML VIAL IVP PRN (11:58)
[2024-10-28] MEDS ORDERED: ALBUTEROL NEBULIZED 2.5 MG/3 ML INHALATION PRN (11:59)
--- NOTE | 2024-10-28 12:10 | P.OP ---
Date of Procedure: 10/28/24 Preoperative Diagnosis: Severe spinal stenosis L3-4 L4-5, lower extremity colopathy, lower extremity weakness, degenerative disc disease, facet arthritis, low back pain Postoperative Diagnosis: Same Anesthesia: GETA Pathology: none sent Condition: stable Disposition: PACU Description of Procedure: DESCRIPTION OF PROCEDURE(S): BRIEF OPERATIVE NOTE Preoperative Diagnosis: Severe spinal stenosis L3-4 L4-5, lower extremity colopathy, lower extremity weakness, degenerative disc disease, facet arthritis, low back pain Postoperative Diagnosis: Same Procedure: Laminectomy and decompression with bilateral foraminotomies L3-4 L4-[address] navigation aided Minimally invasive Posterior lateral decompression and facet fusion L3-4 L4-5 Minimally invasive Transforaminal lumbar interbody fusion for a 360 fusion L3-4 L4-5 Discectomy for decompression L3-4 L4-5 Placement of interbody graft L3-4 L4-5 Use of computer navigation for fusion Local autogenous bone grafting Aspiration of bone marrow from the vertebral body pedicle Use of bone graft extenders Surgeon: Dr. Cassidy Manager Club: Eugenio LOCKETT who is present throughout the entire the case persistence during positioning, dissection, exposure, visualization, and all crucial elements of the case as well as closure. Anesthesia: General anesthesia per Estimated blood loss: Approximately 200 mL Complications: None apparent Components implanted: K2M Karen minimally invasive Adams pedicle screw system withscrews measuring 5.5 and 6.5 mm in diameter to rods to peak 6 mm interbody cages with 10 mL of osteo amp bio4 bone graft substitute and 30 mL of the BX bone fibers to supplement the local autogenous bone graft and bone marrow aspirate Disposition: To recovery room in good stable condition. OPERATIVE INDICATIONS The patient has had severe issues at their lower extremity in her lower back over the past several years with significant worsening over the past several months. Over the past few months the patient had pain at their back and their lower extremities. The patient is having severe radicular symptoms at their lower extremity with weakness. The patient is having significant pain in their back. They are unable to obtain any comfort. She has having significant debility and could only walk very very short distances and was able to only do limited activity due to her lumbar issues. We did aggressive conservative treatment with medications therapy and interventional pain management however thery were not having any relief. The patient had severe stenosis at each level and decompression would further the instability at L3-4 and L4-5 necessitating stabilization. The patient has been through conservative treatment. We discussed various treatment options including surgery, and the patient wishes to proceed with surgery We discussed the risk, patient's alternatives and benefits of surgery including but not limited to, risk of bleeding risk of infection, risk of need for further surgery, risk of decreased, loss of motion, muscle function, malunion nonunion, hardware failure, nerve damage, paralysis, heart attack, blindness and . They understood issues with the current pandemic and the possibility of exposure. OPERATIVE SUMMARY After discussing all the risks, patient alternatives and benefits at length, the patient elected to proceed with surgical intervention, signed informed consent, and presented for their procedure. The patient was seen and examined in the preoperative holding area and the surgical site was marked. The patient was given antibiotics and brought to the operating room. The patient was sedated and intubated by anesthesia in standard fashion. The patient was positioned on to the operating room table in a prone position on the appropriate frame which was well-padded and well molded. We were careful to pad any bony prominences and pressure points. We were careful to maintain the patient's cervical spine and good neutral alignment and position throughout. The patient was prepped and draped in a normal standard fashion. An appropriate timeout and keystone protocol performed. We were able to proceed with the surgery. The local wound area was infiltrated with local anesthetic. Over the right iliac crest I was able to make small stab incisions and establish a guidepin screw fixation to the iliac crest 2. I was able place the computer referencing device over the guidepins to establish an appropriate reference point for the Ziem CT navigation. We then were able to place patient in an appropriate drape and do a navigation spin for visualization and 3-D recon struction of the lumbar spine. I was able utilize C-arm guidance and navigation to establish appropriate position over the pedicles bilaterally at the appropriate levels at L3-L4 and L5. With the appropriate levels confirmed was able to make small incisions over the appropriate pedicle sites bilaterally. Utilizing the computer navigation device I was able to establish bony landmarks at the right iliac crest for a bony reference point for the navigation device. I was able to establish a Jamshidi needle over the lateral aspect of the pedicle and advanced the trocar into the pedicle being careful not to breech superiorly inferiorly medially or laterally using computer navigation device. Position was confirmed regularly with AP and lateral images on C-arm and with the computer navigation device at the appropriate levels bilaterally. I was able to establish the trocar into the pedicle appropriately into the posterior aspect of the vertebral body bilaterally at the appropriate levels at L3-L4 and L5. This was done at each of the pedicle positions and each of the vertebrae. At the superior vertebrae of L3 I was able to take approximately 15 mL of bone aspiration for use later in the case to supplement the allograft and autograft bone. I was able place the guidewire into the trocar and into the vertebral body appropriately under C-arm guidance. Dissection was taken down over the wire to the appropriate starting position for the screw placed. The appropriate length screw was chosen, threaded over the guidewire and screwed appropriately into the pedicle and vertebral body under C-arm guidance in excellent alignment and position with good bony purchase. This is done at each of the screw sites at the appropriate levels at L3-L4 and L5. With the screws intact I extended the incision to connect the screw hole sites on the most symptomatic side on the right. I dissected down to establish access over the pars and lamina to the base of the spinous process. I was able to expose the facet joint. The capsule the facet was taken down and showed some facet arthrosis at the joint. I was able to use a combination of curettes and Kerrison rongeurs and a high-speed drill to take down the facet joint and do a facetectomy. I was able get excellent foraminal decompression and central decompression with undermining across midline to perform a laminectomy centrally and contralaterally. As able get good central decompression. The ligamentum flavum was taken down to further decompress centrally and at bilateral neural foramen. I was able to expose the disc space and visualize the traversing nerve root. Note was made of some disc protrusion and disc herniation that was abutting the traversing nerve root at the level causing further compression of the nerve root. I was able to establish a annulotomy at the appropriate level protecting soft tissue and neural structures. Note was made of some disc desiccation at the disc. I performed a complete discectomy with accommodation of curettes and rasps and scrapers. I was able get good endplate preparation at the disc space. I sized for the appropriate size interbody spacer protecting the soft tissue and neural structures. The wound was copiously irrigated and suctioned dry. There is no evidence of any dural tear or leak. I was able to pack the disc space with local autogenous bone graft as well as a small amount of bone graft which was also placed into the interbody cage itself. Protecting the soft tissue structures and neural structures I was able place the interbody cage in good alignment and good position with good fit and fill at the interbody space. This was done first at L3-4 and then similarly at L4-5 and position was confirmed with C-arm guidance. Good hemostasis maintained. There is no evidence of any dural tear or leak. The wound was irrigated and suctioned dry. With the hardware intact, intraoperative C-arm imaging was again taken which showed good alignment and position of the hardware at the appropriate levels at L3-L4 and L5. We were then able to measure, contour and place the rods and appropriate hardware bilaterally. I was able to place capcrews, tighten them down, and torque them with the torque screwdriver appropriately. With this intact I was able to place the local autogenous bone graft with additional bone graft enhancer as necessary into the posterior lateral gutters over the decorticated transverse processes and facet joints on the contralateral side. The remainder of the bone graft was placed over the facet joint on the contralateral side after taking down the facet joint capsule. With the bone graft intact, a stable construct, and good decompression at the appropriate levels, we were able to proceed with closure. Good hemostasis was maintained. There is no evidence of dural tear or leak. The fascia was closed for a watertight closure. he subcuticular tissue was closed with absorbable suture. The wound was cleaned and dried and dressed with the appropriate dressing. The drapes were broken down. The patient was gently rolled back onto their hospital bed being careful to maintain their cervical spine and good neutral alignment and position. They were woken up by anesthesia, extubated, and brought to the recovery room in good stable condition. The patient will be admitted to the hospital for appropriate postoperative care, medical management and monitoring. We will continue to follow them closely about the postoperative course.
[2024-10-28 12:27] LABS: Glucose,Whole Blood 162 mg/dL (70-110)
[2024-10-28] MEDS: HYDROcodone/APAP 5-325MG 1 EACH TAB PO PRN (13:53)
[2024-10-28] MEDS: ATORVASTATIN 10 MG TAB PO SCH (13:54)
[2024-10-28] MEDS: SODIUM CHLORIDE 0.9% 1,000 ML IV SCH (13:54)
[2024-10-28] MEDS: LORATADINE 10 MG TAB PO SCH (13:54)
[2024-10-28] MEDS: CITALOPRAM HYDROBROMIDE 10 MG TAB PO SCH (14:52)
[2024-10-28] MEDS: HYDROmorphone 2 MG/ML 1 ML SYRINGE IVP PRN (14:52)
[2024-10-28] MEDS: GLIMEPIRIDE 2 MG TAB PO SCH (16:51)
[2024-10-28] MEDS: traMADol 50 MG TAB PO PRN (18:18)
--- NOTE | 2024-10-28 19:34 | XR ---
EXAMINATION TYPE: XR lumbar spine 2 or 3V, FL guidance operating room DATE OF EXAM: 10/28/2024 FLUOROSCOPY L3-4/L4-5 Fusion Intraoperative fluoroscopy. No images provided. [facility], , 10/28/2024 7:32 PM
[2024-10-28] MEDS: FLUTICASONE 110 MCG INHALER INHALATION SCH (19:52)
[2024-10-28] MEDS: DILTIAZEM CD 120 MG CAP.ER.24H PO SCH (20:36)
[2024-10-28] MEDS: busPIRone HCl 5 MG TAB PO SCH (20:36)
[2024-10-28] MEDS: MEMANTINE 10 MG TAB PO SCH (20:37)
[2024-10-28] MEDS: DONEPEZIL 10 MG TAB PO SCH (20:37)
[2024-10-28] MEDS: NITROFURANTOIN MONOHYD/M-CRYST 100 MG CAP PO SCH (20:37)
[2024-10-28] MEDS: metFORMIN 500 MG TAB PO SCH (21:03)
[2024-10-28] MEDS: HYDROmorphone 0.5 MG/0.5 ML SYRINGE IVP PRN (23:02)
--- NOTE | 2024-10-28 23:07 | P.CONS ---
History of Present Illness - Reason for Consult Consult date: 10/28/24 Medical management Requesting physician: Malena Cassidy - Chief Complaint Back surgery - History of Present Illness Pleasant 74-year-old patient who follows with Dr. Roman Mcfarlane. Patient underwent lumbar surgery. Postprocedure laying in bed. Slight nausea. Patient states significant low back pain rating down the right leg. Was using cane and a walker. No cardiac history. No chest pain. Review of systems: GEN.: Tired EYES: None HEENT: [Decreased hearing NECK: None RESPIRATORY: None CARDIOVASCULAR: None GASTROINTESTINAL: None GENITOURINARY: None MUSCULOSKELETAL: Joint pains LYMPHATICS: None HEMATOLOGICAL: None PSYCHIATRY: None NEUROLOGICAL: Did use a cane and a walker. e Social history: Lives with her . Smoked for 18 years. Less than a pack a day. Stopped in [id number]. Physical examination: VITAL SIGNS: 98.2, 92, 18, 138 x 78, 96% on 2 L GENERAL: BMI 35.1, lying bed awake a bit tired. EYES: Pupils equal. Conjunctiva ksenia l. HEENT: External appearance of nose and ears normal, oral cavity grossly normal. NECK: JVD unable to assess; masses not palpable. HEART: First and second heart sounds are normal; no edema. LUNGS: Respiratory rate normal; distant breath sounds. ABDOMEN: Soft, nontender, liver spleen not palpable, no masses palpable. Ray catheter PSYCH: Alert and oriented x3; mood and affect ksenia l. MUSCULOSKELETAL:No Clubbing/cyanosis;muscles-grossly intact. Dressing over incision site NEUROLOGICAL: Cranial nerves grossly intact; no facial asymmetry, power and sensation grossly intact. LYMPHATICS: No lymph nodes palpable in the axilla and neck INVESTIGATIONS, reviewed in the clinical context: October 19, 2024: White count 7.7 hemoglobin 11.8 platelets 427 sodium 139 potassium 4.6 BUN 18 creatinine 0.9 Assessment plan: - Severe spinal stenosis L3-L4, L4-L5, lower extremity right radiculopathy, lower extremity some paresis DJD etc. Followed by laminectomy decompression etc. today by Dr. Cassidy. Pain management. Activity per surgery. - Diabetes mellitus type 2 on oral hypoglycemic Metformin. Amaryl. Actos. Accu-Cheks with sliding scale - Essential hypertension Cardizem - Anxiety depression BuSpar. Zoloft. Xanax - GERD Prilosec - Cognitive impairment Namenda. Aricept. - COPD no prior smoker Pulmicort. Albuterol as needed - Hyperlipidemia Lipitor Care was discussed with patient. Questions answered. Thank you Dr. Cassidy Past Medical History Past Medical History: Asthma, Diabetes Mellitus, GERD/Reflux, Mitral Valve Prolapse (MVP) Additional Past Medical History / Comment(s): currently being tx w/ Macrobid for UTI,chronic back pain-3 deteriorating discs,tachycardia History of Any Multi-Drug Resistant Organisms: None Reported Past Surgical History: Cholecystectomy, Orthopedic Surgery Additional Past Surgical History / Comment(s): 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 Total left knee arthroplasty Past Anesthesia/Blood Transfusion Reactions: No Reported Reaction Additional Past Anesthesia/Blood Transfusion Reaction / Comm: after epidural injection in back had difficulty breathing seen in ER- has had injections since without issue. no hx blood transfusion Past Psychological History: Anxiety, Depression Additional Psychological History / Comment(s): OCD Smoking Status: Never smoker Past Alcohol Use History: None Reported Additional Past Alcohol Use History / Comment(s): SMOKED FOR 18 YRS, LESS THAN 1 PPD, QUIT 1976. Past Drug Use History: None Reported - Past Family History Sister(s) Family Medical History: Cancer Additional Family Medical History / Comment(s): Uterine cancer. Medications and Allergies Home Medications Medication Instructions Recorded Confirmed Type Budesonide [Pulmicort Flexhaler] 2 puff INHALATION RT-BID 01/10/17 10/28/24 History Albuterol Sulfate [Proair 1 puff INHALATION RT-Q6H PRN 04/15/17 10/28/24 History Respiclick] valACYclovir HCL [Valtrex] 500 mg PO 1200 04/15/17 10/28/24 History Cetirizine HCl [Zyrtec] 10 mg PO 1200 05/18/17 10/28/24 History Fluticasone Nasal [place] [Flonase 1 spray EA NOSTRIL DAILY 05/18/17 10/28/24 History Nasal [place]] Omeprazole Magnesium [PriLOSEC OTC] 20 mg PO 1200 05/18/17 10/28/24 History busPIRone HCL 15 mg PO BID 05/25/18 10/28/24 History Atorvastatin [Lipitor] 10 mg PO 1200 02/15/21 10/28/24 History Multivitamins, Thera [Multivitamin 1 tab PO DAILY 02/15/21 10/28/24 History (formulary)] Sertraline [Zoloft] 25 mg PO 1200 02/15/21 10/28/24 History dilTIAZem HCL [dilTIAZem HCL 12Hr 120 mg PO BID 04/05/21 10/28/24 History ER] metFORMIN HCL 500 mg PO BID 04/05/21 10/28/24 History ALPRAZolam [Xanax] 0.25 mg PO BID PRN 10/22/24 10/28/24 History Aspirin [Adult Low Dose Aspirin EC] 81 mg PO DAILY 10/22/24 10/28/24 History Citalopram Hydrobromide [CeleXA] 10 mg PO DAILY@1200 10/22/24 10/28/24 History Donepezil HCl [Aricept] 10 mg PO HS 10/22/24 10/28/24 History Glimepiride [Amaryl] 2 mg PO BID 10/22/24 10/28/24 History Memantine [Namenda] 10 mg PO BID 10/22/24 10/28/24 History Pioglitazone HCl 15 mg PO DAILY@1200 10/22/24 10/28/24 History Protriptyline HCl [Vivactil] 10 mg PO DAILY@1200 10/22/24 10/28/24 History traMADol HCL 50 mg PO Q6H PRN 10/22/24 10/28/24 History Nitrofurantoin Monohyd/M-Cryst 100 mg PO Q12HR 10/23/24 10/28/24 History [Macrobid] Allergies Allergy/AdvReac Type Severity Reaction Status Date / Time lactose Allergy Nausea & Verified 10/28/24 07:41 Vomiting & Diarrhea levofloxacin [From Levaquin] Allergy Rash/Hives Verified 10/28/24 07:41 metronidazole [From Flagyl] Allergy Rash/Hives Verified 10/28/24 07:41 Sulfa (Sulfonamide Allergy Rash/Hives Verified 10/28/24 07:41 Antibiotics) Physical Exam Vitals: Vital Signs Temp Pulse Resp BP Pulse Ox 10/28/24 19:18 98.2 F 92 18 138/78 96 10/28/24 14:45 88 163/90 97 10/28/24 14:30 89 157/83 95 10/28/24 14:15 89 167/80 97 04/16/25 14:00 89 167/82 97 10/28/24 13:55 90 161/73 97 10/28/24 13:04 16 170/77 96 10/28/24 12:49 94 16 167/77 94 L 10/28/24 12:34 93 16 178/76 98 10/28/24 12:19 90 16 162/71 98 10/28/24 12:04 97.6 F 90 16 168/73 99 10/28/24 07:55 97.0 F L 90 16 179/80 97 Intake and Output 10/28/24 10/28/24 10/28/24 06:59 14:59 22:59 Intake Total 1452 Output Total 400 300 Balance 1052 -300 Intake: IV 1452 Output: Urine 200 300 Estimated Blood Loss 200 Other: Voiding Method Indwelling Catheter Weight 90 kg Results Labs: Abnormal Lab Results - Last 24 Hours (Table) 10/28/24 10/28/24 Range/Units 07:53 12:25 POC Glucose (mg/dL) 167 H 162 H (70-110) mg/dL
[2024-10-29 08:23] LABS: Basophils # (A) 0.04 X 10*3/uL (0.00-0.10); Basophils % (A) 0.3 %; Eosinophils # (A) 0.09 X 10*3/uL (0.04-0.35); Eosinophils % (A) 0.8 %; HCT 34.4 % (37.2-46.3); HGB 10.5 g/dL (12.0-15.0); Lymphocytes # (A) 0.54 X 10*3/uL (0.90-5.00); Lymphocytes % (A) 4.7 %; MCH 26.9 pg (27.0-32.0); MCHC 30.5 g/dL (32.0-37.0); MCV 88.2 FL (80.0-97.0); Mean Platelet Volume 8.8 FL (9.5-12.2); Monocytes # (A) 1.09 X 10*3/uL (0.20-1.00); Monocytes % (A) 9.5 %; NRBC Per 100 WBC 0 X 10*3/uL (0.00-0.01); Neutrophils # (A) 9.64 X 10*3/uL (1.80-7.70); Neutrophils % (A) 84.3 %; Platelet Count 317 X 10*3/uL (140-440); RDW 14.9 % (11.5-14.5); WBC 11.45 X 10*3/uL (4.50-10.00)
[2024-10-29 08:34] LABS: BUN/Creat Ratio 21.57 Ratio (12.00-20.00); Blood Urea Nitrogen 15.1 mg/dL (9.0-27.0); Calcium 8.5 mg/dL (8.7-10.3); Carbon Dioxide 25.1 mmol/L (21.6-31.8); Chloride 101 mmol/L (96-109); Glucose 164 mg/dL (70-110); Potassium 4.5 mmol/L (3.5-5.5); Sodium 137 mmol/L (135-145)
--- NOTE | 2024-10-29 09:55 | P.PN ---
Progress Note - Text Progress Note Date: 10/29/24 Orthopedic Spine History of present illness: Patient is a pleasant 74-year-old female who is seen and examined at the bedside following posterior lateral decompression and fusion performed yesterday. Patient states they are doing ok post operatively. She is not complaining of any lower extremity leg pain. She does have some pain at the surgical sites at her lumbar spine which are being controlled. She has not been out of bed yet. She is a little scared to get out of bed but will work with physical therapy. Currently does not complain of nausea, vomiting, fever, or chills. Patient states pain has been adequately controlled. Patient is eating and without difficulty. Her Ray catheter remains intact. She is being seen by medicine for her other medical diagnoses. Physical Exam Lumbar Fusion: Status post surgical day number Patient is awake, alert, and oriented 3 Vital signs stable Good chest excursion with deep inspiration and expiration Dorsiflexion, plantarflexion, and extensor hallucis longus positive sustained bilaterally No signs or symptoms of DVT; no calf pain; pneumatic cuffs intact bilateral lower extremities Optifoam dressings are clean, dry, and intact over the lumbar spine and right iliac crest; no erythema, purulence, or signs of infection Neurovascularly intact bilaterally lower extremities Assessment: Status post L3-4 and L4-5 minimally invasive posterior lateral decompression and fusion with transforaminal lumbar interbody fusion Low back pain Lumbar severe spinal stenosis Lower extremity weakness Lumbar degenerative disc disease Lumbar facet spondylosis Low back pain Lower extremity radiculopathy Essential hypertension Diabetes mellitus type 2 COPD Hyperlipidemia Anxiety depression Plan: 1. Ambulate as tolerated; work with Physical Therapy to increase mobilization 2. Continue pain control with IV and oral medications 3. Dressings to remain intact with Optifoam; patient may shower with dressings intact 4. Medical management can continue to manage patient for patient's other medical diagnoses 5. We will discontinue Ray catheter when patient is able to increase her mobilization 6. We will continue to follow the patient closely; depending on the patient's progress, we may plan for discharge home over the next 1 to 2 days 7. Patient can follow-up with Eugenio Landeros PA-C or Dr. Richmond Cassidy at [facility] in 2-3 weeks following discharge Patient is seen and examined at bedside. I agree with the above. Her legs are doing better today but she is having significant back pain. I think she is making progress appropriately. Hopefully she will be able to go home in the next couple of days if she continues to make progress
[2024-10-29] MEDS: ASPIRIN 81 MG PO SCH (10:30)
[2024-10-29] MEDS: SENNOSIDES-DOCUSATE SODIUM 1 EACH TAB PO SCH (10:30)
[2024-10-29] MEDS: MULTIVITAMINS, THERA 1 EACH TAB PO SCH (10:30)
[2024-10-29] MEDS: FLUTICASONE NASAL 50MCG/SPRAY 16GM BTL EA NOSTRIL SCH (11:25)
[2024-10-29 12:08] LABS: Glucose,Whole Blood 164 mg/dL (70-110)
[2024-10-29] MEDS: valACYclovir HCL 500 MG TAB PO SCH (13:08)
[2024-10-29] MEDS: PIOGLITAZONE 15 MG TAB PO SCH (13:08)
[2024-10-29] MEDS: SERTRALINE 25 MG TAB PO SCH (13:08)
[2024-10-29] MEDS: PANTOPRAZOLE 40 MG TABLET PO SCH (13:08)
[2024-10-29] MEDS: PROTRIPTYLINE HCL 10 MG PO SCH (13:15)
--- NOTE | 2024-10-29 16:59 | P.PN ---
Progress Note - Text Progress Note Date: 10/29/24 - Chief Complaint Back surgery - History of Present Illness Pleasant 74-year-old patient who follows with Dr. Roman Mcfarlane. Patient underwent lumbar surgery. Postprocedure laying in bed. Slight nausea. Patient states significant low back pain rating down the right leg. Was using cane and a walker. No cardiac history. No chest pain. October 29: Patient having significant pain. Seen by physical therapy. Full assist. Eating about 50-75%. Discussed with patient at the bedside. Active Medications Acetaminophen (Acetaminophen Tab 325 Mg Tab) 650 mg PO Q6HR PRN PRN Reason: Pain 1-3 Stop: 11/27/24 11:59 Hydrocodone Bitart/Acetaminophen (Hydrocodone/Apap 5-325mg 1 Each Tab) 1 each PO Q4HR PRN PRN Reason: Pain 7-10 Stop: 11/27/24 11:55 Last Admin: 10/29/24 16:19 Dose: 1 each Albuterol Sulfate (Albuterol Nebulized 2.5 Mg/3 Ml) 2.5 mg INHALATION RT-Q6H PRN PRN Reason: Shortness Of Breath Stop: 11/27/24 11:58 Alprazolam (Alprazolam 0.25 Mg Tab) 0.25 mg PO BID PRN PRN Reason: Anxiety Stop: 11/27/24 11:58 Aspirin (Aspirin 81 Mg) 81 mg PO DAILY [facility] Stop: 11/28/24 08:59 Last Admin: 10/29/24 10:30 Dose: 81 mg Atorvastatin Calcium (Atorvastatin 10 Mg Tab) 10 mg PO 1200 [facility] Stop: 11/27/24 11:59 Last Admin: 10/29/24 13:08 Dose: 10 mg Benzocaine/Menthol (Benzocaine/Menthol Lozeng 1 Each Lozenge) 1 each MUCOUS MEM Q4HR PRN PRN Reason: Sore Throat Stop: 11/27/24 11:55 Buspirone HCl (Buspirone Hcl 5 Mg Tab) 15 mg PO BID [facility] Stop: 11/27/24 20:59 Last Admin: 10/29/24 10:30 Dose: 15 mg Citalopram Hydrobromide (Citalopram Hydrobromide 10 Mg Tab) 10 mg PO DAILY@1200 [facility] Stop: 11/27/24 13:59 Last Admin: 10/29/24 13:08 Dose: 10 mg Diltiazem HCl (Diltiazem Cd 120 Mg Cap.Er.24h) 120 mg PO BID [facility] Stop: 11/27/24 20:59 Last Admin: 10/29/24 10:30 Dose: 120 mg Donepezil HCl (Donepezil 10 Mg Tab) 10 mg PO HS [facility] Stop: 11/27/24 20:59 Last Admin: 10/28/24 20:37 Dose: 10 mg Fluticasone Propionate (Fluticasone 110 Mcg Inhaler) 2 puff INHALATION RT-BID [facility] Stop: 11/27/24 19:59 Last Admin: 10/29/24 10:01 Dose: 2 puff Fluticasone Propionate (Fluticasone Nasal 50mcg/[place] 16gm Btl) 1 spray EA NOSTRIL DAILY [facility] Stop: 11/28/24 08:59 Last Admin: 10/29/24 11:25 Dose: 1 spray Glimepiride (Glimepiride 2 Mg Tab) 2 mg PO AC-BID [facility] Last Admin: 10/29/24 06:42 Dose: 2 mg Hydromorphone HCl (Hydromorphone 0.5 Mg/0.5 Ml Syringe) 0.5 mg IVP Q4HR PRN PRN Reason: Pain 4-6 PO Intolerant Stop: 11/27/24 11:55 Last Admin: 10/29/24 14:30 Dose: 0.5 mg Hydromorphone HCl (Hydromorphone 2 Mg/Ml 1 Ml Syringe) 1 mg IVP Q4HR PRN PRN Reason: Pain 7-10 PO Intolerant Stop: 11/27/24 11:55 Last Admin: 10/28/24 14:52 Dose: 1 mg Lactated Ringer's (Lactated Ringers) 1,000 mls @ 20 mls/hr IV .Q24H [facility] Stop: 11/27/24 06:14 Last Admin: 10/29/24 08:41 Dose: Not Given Sodium Chloride (Saline 0.9%) 1,000 mls @ 75 mls/hr IV .[id number] [facility] Stop: 11/27/24 11:59 Last Admin: 10/29/24 14:30 Dose: 75 mls/hr Loratadine (Loratadine 10 Mg Tab) 10 mg PO 1200 [facility] Stop: 11/27/24 11:59 Last Admin: 10/29/24 13:08 Dose: 10 mg Memantine (Memantine 10 Mg Tab) 10 mg PO BID [facility] Stop: 11/27/24 20:59 Last Admin: 10/29/24 10:30 Dose: 10 mg Metformin HCl (Metformin 500 Mg Tab) 500 mg PO BID-W/MEALS [facility] Stop: 11/27/24 20:59 Last Admin: 10/29/24 06:42 Dose: 500 mg Multivitamins (Multivitamins, Thera 1 Each Tab) 1 each PO DAILY [facility] Stop: 11/28/24 08:59 Last Admin: 10/29/24 10:30 Dose: 1 each Nitrofurantoin Macrocrystals (Nitrofurantoin Monohyd/M-Cryst 100 Mg Cap) 100 mg PO Q12HR [facility]; Protocol Stop: 11/27/24 20:59 Last Admin: 10/29/24 10:30 Dose: 100 mg Protriptyline Hcl [ Vivactil] 10 Mg Tablet 1 each PO DAILY@1200 [facility] Stop: 11/28/24 11:59 Last Admin: 10/29/24 13:15 Dose: Not Given Ondansetron HCl (Ondansetron 4 Mg/2 Ml Vial) 4 mg IVP Q8HR PRN PRN Reason: Nausea And Vomiting Stop: 11/27/24 11:57 Pantoprazole Sodium (Pantoprazole 40 Mg Tablet) 40 mg PO 1200 [facility] Stop: 11/28/24 11:59 Last Admin: 10/29/24 13:08 Dose: 40 mg Pioglitazone HCl (Pioglitazone 15 Mg Tab) 15 mg PO DAILY@1200 [facility] Stop: 11/28/24 11:59 Last Admin: 10/29/24 13:08 Dose: 15 mg Senna/Docusate Sodium (Sennosides-Docusate Sodium 1 Each Tab) 1 each PO DAILY [facility] Stop: 11/28/24 08:59 Last Admin: 10/29/24 10:30 Dose: 1 each Sertraline HCl (Sertraline 25 Mg Tab) 25 mg PO 1200 [facility] Stop: 11/28/24 11:59 Last Admin: 10/29/24 13:08 Dose: 25 mg Tramadol HCl (Tramadol 50 Mg Tab) 50 mg PO Q6HR PRN PRN Reason: Pain Scale 4 - 6 Stop: 12/01/24 11:55 Last Admin: 10/29/24 12:31 Dose: 50 mg Valacyclovir HCl (Valacyclovir Hcl 500 Mg Tab) 500 mg PO 1200 [facility]; Protocol Stop: 11/28/24 11:59 Last Admin: 10/29/24 13:08 Dose: 500 mg Social history: Lives with her . Smoked for 18 years. Less than a pack a day. Stopped in 9076. Physical examination: VITAL SIGNS: 98, 101, 16, 130/78, 93% room air GENERAL: BMI 35.1, lying bed-t tired. Uncomfortable EYES: Pupils equal. Conjunctiva ksenia l. HEENT: External appearance of nose and ears normal, oral cavity grossly normal. NECK: JVD unable to assess; masses not palpable. HEART: First and second heart sounds are normal; no edema. LUNGS: Respiratory rate normal; distant breath sounds. ABDOMEN: Soft, nontender, liver spleen not palpable, no masses palpable. Ray catheter PSYCH: Alert and oriented x3; mood and affect ksenia l. MUSCULOSKELETAL:No Clubbing/cyanosis;muscles-grossly intact. OptiForm dressing clean NEUROLOGICAL: Cranial nerves grossly intact; no facial asymmetry, power and sensation grossly intact. Full assist INVESTIGATIONS, reviewed in the clinical context: October 29: White count 9.4 hemoglobin 10.5 platelets 317 sodium 137 potassium 4.5 creatinine 0.7 October 19, 2024: White count 7.7 hemoglobin 11.8 platelets 427 sodium 139 potassium 4.6 BUN 18 creatinine 0.9 Assessment plan: - Severe spinal stenosis L3-L4, L4-L5, lower extremity right radiculopathy, lower extremity some paresis DJD etc. Followed by laminectomy decompression etc. today by Dr. Cassidy. Pain management. Activity per surgery. October 29: Significant pain. Patient further assessed - Diabetes mellitus type 2 on oral hypoglycemic Metformin. Amaryl. Actos. Accu-Cheks with sliding scale - Essential hypertension Cardizem - Anxiety depression BuSpar. Zoloft. Xanax - Acute postprocedure blood loss anemia expected from surgery Ferrous sulfate - GERD Prilosec - Cognitive impairment Namenda. Aricept. - COPD no prior smoker Pulmicort. Albuterol as needed - Hyperlipidemia Lipitor Significant pain. Full assist Thank you Dr. Cassidy Past Medical History Past Medical History: Asthma, Diabetes Mellitus, GERD/Reflux, Mitral Valve Prolapse (MVP) Additional Past Medical History / Comment(s): currently being tx w/ Macrobid for UTI,chronic back pain-3 deteriorating discs,tachycardia History of Any Multi-Drug Resistant Organisms: None Reported Past Surgical History: Cholecystectomy, Orthopedic Surgery Additional Past Surgical History / Comment(s): 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 Total left knee arthroplasty Past Anesthesia/Blood Transfusion Reactions: No Reported Reaction Additional Past Anesthesia/Blood Transfusion Reaction / Comm: after epidural injection in back had difficulty breathing seen in ER- has had injections since without issue. no hx blood transfusion Past Psychological History: Anxiety, Depression Additional Psychological History / Comment(s): OCD Smoking Status: Never smoker Past Alcohol Use History: None Reported Additional Past Alcohol Use History / Comment(s): SMOKED FOR 18 YRS, LESS THAN 1 PPD, QUIT 1976. Past Drug Use History: None Reported
[2024-10-29] MEDS: FERROUS SULFATE 325 MG TAB PO SCH (17:49)
[2024-10-29] MEDS: ACETAMINOPHEN TAB 325 MG TAB PO PRN (17:52)
--- NOTE | 2024-10-30 08:50 | P.PN ---
Progress Note - Text Progress Note Date: 10/30/24 Orthopedic spine: History of present illness: Patient is a pleasant 74-year-old female who is seen and examined at the bedside following posterior lateral decompression and fusion performed Saturday. Patient states they are doing ok post operatively but continues to have significant difficulty with her mobilization. She is not complaining of any lower extremity leg pain. She does have some pain at the surgical sites at her lumbar spine which are being controlled at rest. She has significant pain with movement of her lumbar spine. She has had difficulty transferring to a bedside chair with physical therapy. Currently does not complain of nausea, vomiting, fever, or chills. Patient states pain has been adequately controlled. Patient is eating and without difficulty. Her Ray catheter remains intact. She was seen by case management yesterday who is working on approval She was seen again by case management yesterday who is working on approval for discharge to swing bed rehabilitation facility. She is being seen by medicine for her other medical diagnoses. Physical Exam Lumbar Fusion: Status post surgical day number Patient is awake, alert, and oriented 3 Vital signs stable Good chest excursion with deep inspiration and expiration Dorsiflexion, plantarflexion, and extensor hallucis longus positive sustained bilaterally No signs or symptoms of DVT; no calf pain; pneumatic cuffs intact bilateral lower extremities Optifoam dressings are clean, dry, and intact over the lumbar spine and right iliac crest; no erythema, purulence, or signs of infection Neurovascularly intact bilaterally lower extremities Assessment: Status post L3-4 and L4-5 minimally invasive posterior lateral decompression and fusion with transforaminal lumbar interbody fusion Low back pain Lumbar severe spinal stenosis Lower extremity weakness Lumbar degenerative disc disease Lumbar facet spondylosis Low back pain Lower extremity radiculopathy Essential hypertension Diabetes mellitus type 2 COPD Hyperlipidemia Anxiety depression Plan: 1. Ambulate as tolerated; work with Physical Therapy to increase mobilization 2. Continue pain control with IV and oral medications MAPS has been reviewed. An "Opiod Start Talking" Form has been signed and placed in the patient's chart. A prescription has been written for Critz 5 mg / 325 mg, 1 tab, every 4 hours, as needed for acute pain, dispense #42. Prescription also written for baclofen 10 mg, 1 tab, 3 times daily, as needed for muscle spasm, dispense #90. Prescriptions are written, signed, and placed in the chart for discharge to rehabilitation facility. 3. Dressings to remain intact with Optifoam; patient may shower with dressings intact 4. Medical management can continue to manage patient for patient's other medical diagnoses 5. We will discontinue Ray catheter when patient is able to increase her mobilization 6. We will continue to follow the patient closely; depending on the patient's progress, we may plan for discharge to rehabilitation facility either tomorrow, 10/31/2024, or this coming 11/02/2024 7. Patient can follow-up with Eugenio Landeros PA-C or Dr. Richmond Cassidy at [facility] in 2-3 weeks following discharge Patient is seen and examined. She is up in a chair. She had great difficulty changing positions but she is okay when she gets to a new position. Her lower extremities have good active and passive range of motion without any new neurologic deficit. We need to discontinue her Ray today. I reviewed the patient and the dictation above and I am in agreement.
[2024-10-30] MEDS: ALPRAZolam 0.25 MG TAB PO PRN (10:32)
--- NOTE | 2024-10-30 17:46 | P.PN ---
Progress Note - Text Progress Note Date: 10/30/24 - Chief Complaint Back surgery - History of Present Illness Pleasant 74-year-old patient who follows with Dr. Roman Mcfarlane. Patient underwent lumbar surgery. Postprocedure laying in bed. Slight nausea. Patient states significant low back pain rating down the right leg. Was using cane and a walker. No cardiac history. No chest pain. October 29: Patient having significant pain. Seen by physical therapy. Full assist. Eating about 50-75%. Discussed with patient at the bedside. October 30: Up in a chair. Seen by physical therapy. Was able to pivot to chair. Two-person assist. Oral intake fair. Pain still present. No bowel movement. Active Medications Acetaminophen (Acetaminophen Tab 325 Mg Tab) 650 mg PO Q6HR PRN PRN Reason: Pain 1-3 Stop: 11/27/24 11:59 Last Admin: 10/29/24 17:52 Dose: 650 mg Hydrocodone Bitart/Acetaminophen (Hydrocodone/Apap 5-325mg 1 Each Tab) 1 each PO Q4HR PRN PRN Reason: Pain 7-10 Stop: 11/27/24 11:55 Last Admin: 10/30/24 17:30 Dose: 1 each Albuterol Sulfate (Albuterol Nebulized 2.5 Mg/3 Ml) 2.5 mg INHALATION RT-Q6H PRN PRN Reason: Shortness Of Breath Stop: 11/27/24 11:58 Alprazolam (Alprazolam 0.25 Mg Tab) 0.25 mg PO BID PRN PRN Reason: Anxiety Stop: 11/27/24 11:58 Last Admin: 10/30/24 10:32 Dose: 0.25 mg Aspirin (Aspirin 81 Mg) 81 mg PO DAILY [facility] Stop: 11/28/24 08:59 Last Admin: 10/30/24 09:29 Dose: 81 mg Atorvastatin Calcium (Atorvastatin 10 Mg Tab) 10 mg PO 1200 [facility] Stop: 11/27/24 11:59 Last Admin: 10/30/24 12:57 Dose: 10 mg Benzocaine/Menthol (Benzocaine/Menthol Lozeng 1 Each Lozenge) 1 each MUCOUS MEM Q4HR PRN PRN Reason: Sore Throat Stop: 11/27/24 11:55 Buspirone HCl (Buspirone Hcl 5 Mg Tab) 15 mg PO BID [facility] Stop: 11/27/24 20:59 Last Admin: 10/30/24 09:29 Dose: 15 mg Citalopram Hydrobromide (Citalopram Hydrobromide 10 Mg Tab) 10 mg PO DAILY@1200 [facility] Stop: 11/27/24 13:59 Last Admin: 10/30/24 12:57 Dose: 10 mg Diltiazem HCl (Diltiazem Cd 120 Mg Cap.Er.24h) 120 mg PO BID [facility] Stop: 11/27/24 20:59 Last Admin: 10/30/24 09:50 Dose: 120 mg Donepezil HCl (Donepezil 10 Mg Tab) 10 mg PO HS [facility] Stop: 11/27/24 20:59 Last Admin: 10/29/24 20:34 Dose: 10 mg Ferrous Sulfate (Ferrous Sulfate 325 Mg Tab) 325 mg PO W/LUNCH [facility] Last Admin: 10/30/24 12:57 Dose: 325 mg Fluticasone Propionate (Fluticasone 110 Mcg Inhaler) 2 puff INHALATION RT-BID [facility] Stop: 11/27/24 19:59 Last Admin: 10/30/24 07:45 Dose: 2 puff Fluticasone Propionate (Fluticasone Nasal 50mcg/[place] 16gm Btl) 1 spray EA NOSTRIL DAILY [facility] Stop: 11/28/24 08:59 Last Admin: 10/30/24 09:31 Dose: 1 spray Glimepiride (Glimepiride 2 Mg Tab) 2 mg PO AC-BID [facility] Last Admin: 10/30/24 06:47 Dose: 2 mg Hydromorphone HCl (Hydromorphone 0.5 Mg/0.5 Ml Syringe) 0.5 mg IVP Q4HR PRN PRN Reason: Pain 4-6 PO Intolerant Stop: 11/27/24 11:55 Last Admin: 10/30/24 12:57 Dose: 0.5 mg Hydromorphone HCl (Hydromorphone 2 Mg/Ml 1 Ml Syringe) 1 mg IVP Q4HR PRN PRN Reason: Pain 7-10 PO Intolerant Stop: 11/27/24 11:55 Last Admin: 10/30/24 06:47 Dose: 1 mg Lactated Ringer's (Lactated Ringers) 1,000 mls @ 20 mls/hr IV .Q24H [facility] Stop: 11/27/24 06:14 Last Admin: 10/30/24 04:21 Dose: Not Given Sodium Chloride (Saline 0.9%) 1,000 mls @ 75 mls/hr IV .[id number] [facility] Stop: 11/27/24 11:59 Last Admin: 10/30/24 04:20 Dose: Not Given Loratadine (Loratadine 10 Mg Tab) 10 mg PO 1200 [facility] Stop: 11/27/24 11:59 Last Admin: 10/30/24 12:57 Dose: 10 mg Memantine (Memantine 10 Mg Tab) 10 mg PO BID [facility] Stop: 11/27/24 20:59 Last Admin: 10/30/24 09:29 Dose: 10 mg Metformin HCl (Metformin 500 Mg Tab) 500 mg PO BID-W/MEALS [facility] Stop: 11/27/24 20:59 Last Admin: 10/30/24 06:47 Dose: 500 mg Multivitamins (Multivitamins, Thera 1 Each Tab) 1 each PO DAILY [facility] Stop: 11/28/24 08:59 Last Admin: 10/30/24 09:29 Dose: 1 each Nitrofurantoin Macrocrystals (Nitrofurantoin Monohyd/M-Cryst 100 Mg Cap) 100 mg PO Q12HR [facility]; Protocol Stop: 11/27/24 20:59 Last Admin: 10/30/24 09:29 Dose: 100 mg Protriptyline Hcl [ Vivactil] 10 Mg Tablet 1 each PO DAILY@1200 [facility] Stop: 11/28/24 11:59 Last Admin: 10/30/24 12:57 Dose: Not Given Ondansetron HCl (Ondansetron 4 Mg/2 Ml Vial) 4 mg IVP Q8HR PRN PRN Reason: Nausea And Vomiting Stop: 11/27/24 11:57 Pantoprazole Sodium (Pantoprazole 40 Mg Tablet) 40 mg PO 1200 [facility] Stop: 11/28/24 11:59 Last Admin: 10/30/24 12:57 Dose: 40 mg Pioglitazone HCl (Pioglitazone 15 Mg Tab) 15 mg PO DAILY@1200 [facility] Stop: 11/28/24 11:59 Last Admin: 10/30/24 12:57 Dose: 15 mg Senna/Docusate Sodium (Sennosides-Docusate Sodium 1 Each Tab) 1 each PO DAILY [facility] Stop: 11/28/24 08:59 Last Admin: 10/30/24 09:29 Dose: 1 each Sertraline HCl (Sertraline 25 Mg Tab) 25 mg PO 1200 [facility] Stop: 11/28/24 11:59 Last Admin: 10/30/24 12:57 Dose: 25 mg Tramadol HCl (Tramadol 50 Mg Tab) 50 mg PO Q6HR PRN PRN Reason: Pain Scale 4 - 6 Stop: 12/01/24 11:55 Last Admin: 10/30/24 09:30 Dose: 50 mg Valacyclovir HCl (Valacyclovir Hcl 500 Mg Tab) 500 mg PO 1200 [facility]; Protocol Stop: 11/28/24 11:59 Last Admin: 10/30/24 12:57 Dose: 500 mg Social history: Lives with her . Smoked for 18 years. Less than a pack a day. Stopped in 9076. Physical examination: VITAL SIGNS: 97.8, 93, 16, 113 x 64, 90% room air GENERAL: Up in a chair, but uncomfortable EYES: Pupils equal. Conjunctiva ksenia l. HEENT: External appearance of nose and ears normal, oral cavity grossly normal. NECK: JVD unable to assess; masses not palpable. HEART: First and second heart sounds are normal; no edema. LUNGS: Respiratory rate normal; distant breath sounds. ABDOMEN: Soft, nontender, liver spleen not palpable, no masses palpable. Ray catheter PSYCH: Alert and oriented x3; mood and affect ksenia l. MUSCULOSKELETAL:No Clubbing/cyanosis;muscles-grossly intact. OptiForm dressing clean NEUROLOGICAL: Cranial nerves grossly intact; no facial asymmetry, power and sensation grossly intact. Two-person assist INVESTIGATIONS, reviewed in the clinical context: October 29: White count 9.4 hemoglobin 10.5 platelets 317 sodium 137 potassium 4.5 creatinine 0.7 October 19, 2024: White count 7.7 hemoglobin 11.8 platelets 427 sodium 139 potassium 4.6 BUN 18 creatinine 0.9 Assessment plan: - Severe spinal stenosis L3-L4, L4-L5, lower extremity right radiculopathy, lower extremity some paresis DJD etc. Followed by laminectomy decompression etc. today by Dr. Cassidy. Pain management. Activity per surgery. October 30: Two-person assist. Up to chair - Diabetes mellitus type 2 on oral hypoglycemic Metformin. Amaryl. Actos. Accu-Cheks with sliding scale - Essential hypertension Cardizem - Anxiety depression BuSpar. Zoloft. Xanax - Acute postprocedure blood loss anemia expected from surgery Ferrous sulfate - GERD Prilosec - Cognitive impairment Namenda. Aricept. - COPD no prior smoker Pulmicort. Albuterol as needed - Hyperlipidemia Lipitor Discussed. Continue current treatment plan. Thank you Dr. Cassidy Past Medical History Past Medical History: Asthma, Diabetes Mellitus, GERD/Reflux, Mitral Valve Prolapse (MVP) Additional Past Medical History / Comment(s): currently being tx w/ Macrobid for UTI,chronic back pain-3 deteriorating discs,tachycardia History of Any Multi-Drug Resistant Organisms: None Reported Past Surgical History: Cholecystectomy, Orthopedic Surgery Additional Past Surgical History / Comment(s): 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 Total left knee arthroplasty Past Anesthesia/Blood Transfusion Reactions: No Reported Reaction Additional Past Anesthesia/Blood Transfusion Reaction / Comm: after epidural injection in back had difficulty breathing seen in ER- has had injections since without issue. no hx blood transfusion Past Psychological History: Anxiety, Depression Additional Psychological History / Comment(s): OCD Smoking Status: Never smoker Past Alcohol Use History: None Reported Additional Past Alcohol Use History / Comment(s): SMOKED FOR 18 YRS, LESS THAN 1 PPD, QUIT 1976. Past Drug Use History: None Reported
[2024-10-31 04:41] LABS: Basophils # (A) 0.04 10*3/uL (0.00-0.10); Basophils % (A) 0.4 %; Eosinophils # (A) 0.17 10*3/uL (0.04-0.35); Eosinophils % (A) 1.9 %; HGB 9.2 g/dL (12.0-15.0); Lymphocytes # (A) 1.11 10*3/uL (0.90-5.00); Lymphocytes % (A) 12.3 %; MCH 27.9 pg (27.0-32.0); MCHC 31.7 g/dL (32.0-37.0); MCV 87.9 fL (80.0-97.0); Mean Platelet Volume 8.8 fL (9.5-12.2); Monocytes # (A) 0.83 10*3/uL (0.20-1.00); Monocytes % (A) 9.2 %; Neutrophils # (A) 6.81 10*3/uL (1.80-7.70); Neutrophils % (A) 75.8 %; Platelet Count 286 10*3/uL (140-440); RDW 14.7 % (11.5-14.5)
[2024-10-31 05:09] LABS: African American GFR (CKD) >90 (>60 ml/min/1.73 sqM); Anion Gap 7 mmol/L; Blood Urea Nitrogen 15 mg/dL (7-17); Calcium 8.1 mg/dL (8.4-10.2); Carbon Dioxide 24 mmol/L (22-30); Chloride 102 mmol/L (98-107); Glucose 164 mg/dL (74-99); Non-African American GFR(CKD) >90 (>60 ml/min/1.73 sqM); Potassium 3.9 mmol/L (3.5-5.1); Sodium 133 mmol/L (137-145)
--- NOTE | 2024-10-31 08:48 | P.PN ---
Progress Note - Text Progress Note Date: 10/31/24 Postoperative day #3 Patient is seen and examined today at bedside. We assisted her getting up to a commode from a chair. The patient has some pain around the surgical site as expected. Patient is slightly confused but can manage slowly. The pain at her back is still present and she is quite nervous about the pain and her mobility. She denies no new changes in her neurologic status. She is tolerating her diet but only eating a little. She is voiding adequately. Physical Exam Afebrile with stable vital signs Abdomen is soft nontender. She is obese chest has good excursion deep and space expiration The incision site is clean dry and intact. No erythema there is no purulence. There is no erythema there is no drainage. Extremities have not had neurologic change from prior to surgery. She has sustained dorsiflexion plantarflexion EHL intact. Calves and thighs were soft nontender without evidence of DVT. Assessment/Plan Postoperative day #3 status post minimally invasive decompression fusion L3-4 L4-5 for her severe spinal stenosis with lower extreme radiculopathy Patient is progressing very slowly in terms of her mobility and pain control from the surgery. She seems more apprehensive about her pain than she is an actual pain and I think she is a bit overmedicated. I think this is because of her slight confusion. We will need to diminish the amount of IV medications and try to convert her to orals. I had a long discussion about this with her today at bedside. We tried to get her up out of A chair to the commode and this is quite difficult. She is maximum assist with at least 2 people. She is not safe to try to mobilize on her own or stand up on her own at all She is at home typically with her and there is no way that they will be in a safe environment with her at home unless she has some remarkable change. I think that she will need longterm posthospitalization to ensure her safety and increase her mobility. Case management will work on this. We will continue to increase the patient's mobilization with therapy. We will continue pain control with oral or IV medications, while trying to diminish the IV medications and trying to focus more on just the orals to help her mentation and try to control her pain adequately. We'll continue to follow patient closely.
[2024-10-31] MEDS: polyethylene glycoL 3350 17 GM POWD.PACK PO SCH (12:58)
--- NOTE | 2024-10-31 15:07 | P.PN ---
Subjective Interval History: Pleasant 74-year-old patient who follows with Dr. Roman Mcfarlane. Patient underwent lumbar surgery. Postprocedure laying in bed. Slight nausea. Patient states significant low back pain rating down the right leg. Was using cane and a walker. No cardiac history. No chest pain. October 29: Patient having significant pain. Seen by physical therapy. Full assist. Eating about 50-75%. Discussed with patient at the bedside. October 30: Up in a chair. Seen by physical therapy. Was able to pivot to chair. Two-person assist. Oral intake fair. Pain still present. No bowel movement. 10/31/2024 Patient was seen and examined today. Afebrile, heart rate 89 respiratory rate 18, blood pressure 160/75, saturating 92% on room air. Pain is better controlled today. Reported no bowel movement, started on Senokot, MiraLAX, had urinary retention overnight we will continue monitor with bladder management protocol, patient voided 200 mL this morning. WBCs 9.0 hemoglobin 9.2 platelet 286. BMP unremarkable. Assessment and plan: Severe spinal stenosis L3-L4, L4-L5, lower extremity right radiculopathy, lower extremity some paresis DJD etc. Followed by laminectomy decompression etc. today by Dr. Cassidy. Pain management. Activity per surgery. October 30: Two-person assist. Up to chair - Diabetes mellitus type 2 on oral hypoglycemic Metformin. Amaryl. Actos. Accu-Cheks with sliding scale - Essential hypertension Cardizem - Anxiety depression BuSpar. Zoloft. Xanax - Acute postprocedure blood loss anemia expected from surgery Ferrous sulfate - GERD Prilosec - Cognitive impairment Namenda. Aricept. - COPD no prior smoker Pulmicort. Albuterol as needed - Hyperlipidemia Lipitor DVT prophylaxis: Per orthopedics. Monitor vital signs and labs Labs and medication were reviewed. Continue same treatment. Further recommendations as per clinical course of the patient PHYSICAL EXAMINATION: GENERAL: The patient is A&O x3, NAD HEENT: EOMI, Sclerae anicteric, Moist Mucous membranes Neck: Supple, Non tender, No JVD PULMONARY: Equal breath souds B/L, No wheezing, No crackles. CARDIOVASCULAR: S1, S2 present. No murmurs, rubs, or gallops. ABDOMEN: Soft, nontender, nondistended, normoactive bowel sounds. No guarding or rebound tenderness. MUSCULOSKELETAL: No edema, No cyanosis. No clubbing. Normal ROM. Intact peripheral pulses. NEUROLOGICAL: CN 2-12 grossly intact. No FND Skin: No Rash REVIEW OF SYSTEMS: CONSTITUTIONAL: No fever or chills. CARDIOVASCULAR: No chest pain, palpitations or syncope. PULMONARY: No shortness of breath, no cough, sore throat. GASTROINTESTINAL: No nausea, vomiting, diarrhea, abdominal pain. : No Dysuria, urgency, frequency. Extremities: No edema. NEUROLOGICAL: No headaches, no weakness, or numbness Dictation was produced using [email or web address] dictation software. please excuse any grammatical, word or spelling errors. Objective - Vital Signs Vital signs: Vital Signs Temp 98.4 F 10/31/24 13:05 Pulse 89 10/31/24 13:05 Resp 18 10/31/24 13:05 BP 160/75 10/31/24 13:05 Pulse Ox 93 L 10/31/24 13:05 FiO2 Intake & Output 10/30/24 10/31/24 10/31/24 18:59 06:59 18:59 Intake Total 1080 Output Total 1100 1375 Balance -20 -1375 Intake: Oral 1080 Output: Urine 1100 1375 Straight 550 Uretheral (Ray) 550 Other: Voiding Method Indwelling Catheter Toilet Bedside Commode - Labs CBC & Chem 7: 10/31/24 04:20 10/31/24 04:20 Labs: Abnormal Lab Results - Last 24 Hours (Table) 10/31/24 10/31/24 Range/Units 04:20 04:20 RBC 3.30 L (4.10-5.20) 10*6/uL Hgb 9.2 L (12.0-15.0) g/dL Hct 29.0 L (37.2-46.3) % MCHC 31.7 L (32.0-37.0) g/dL RDW 14.7 H (11.5-14.5) % MPV 8.8 L (9.5-12.2) fL Sodium 133 L (137-145) mmol/L Glucose 164 H (74-99) mg/dL Calcium 8.1 L (8.4-10.2) mg/dL
[2024-10-31] MEDS: SENNOSIDES-DOCUSATE SODIUM 1 EACH TAB PO SCH (20:43)
[2024-11-01 06:45] LABS: Glucose,Whole Blood 139 mg/dL (70-110)
--- NOTE | 2024-11-01 09:07 | P.PN ---
Subjective Progress Note Date: 11/01/24 Principal diagnosis: Status post minimally invasive posterior lumbar decompression and fusion L3-4, 4-5. This is a pleasant 74-year-old female in no acute distress. She continues to have pain but states that it is improving slightly. She is sitting up in the chair today. Her is at bedside. She has no new complaints or concerns today. Vital signs are stable. Objective - Vital Signs Vital signs: Vital Signs Temp 98.3 F 11/01/24 07:50 Pulse 95 11/01/24 07:50 Resp 16 11/01/24 07:50 BP 168/80 11/01/24 07:50 Pulse Ox 95 11/01/24 07:50 FiO2 Intake & Output 10/31/24 11/01/24 11/01/24 18:59 06:59 18:59 Intake Total 1080 Output Total 1375 1550 Balance -1375 -470 Intake: Oral 1080 Output: Urine 1375 1550 Straight 550 Uretheral (Ray) 475 Other: # Voids 2 # Bowel Movements 0 - Exam This is a pleasant 74-year-old female in no acute distress. She is alert and o riented x 3. She is sitting up in a chair at the bedside. She is unable to lean forward for me to see the dressings at this time. She is able to extend her knees on the chair. She has full foot and ankle motion bilaterally. There are no neurologic deficits noted. - Labs CBC & Chem 7: 10/31/24 04:20 10/31/24 04:20 Labs: Abnormal Lab Results - Last 24 Hours (Table) 11/01/24 Range/Units 06:44 POC Glucose (mg/dL) 139 H (70-110) mg/dL Assessment and Plan (1) Post-op pain Current Visit: Yes Status: Acute Code(s): G89.18 - OTHER ACUTE POSTPROCEDURAL PAIN SNOMED Code(s): 732961715 (2) S/P lumbar fusion Current Visit: Yes Status: Acute Code(s): Z98.1 - ARTHRODESIS STATUS SNOMED Code(s): 02054825768872 (3) Spinal stenosis Current Visit: Yes Status: Acute Code(s): M48.00 - SPINAL STENOSIS, SITE UNSPECIFIED SNOMED Code(s): 73855405 Plan: The clinical findings are discussed with the patient and her . She is encouraged to continue to move and ambulate as much as she can tolerate. We are planning discharge to inpatient rehab tomorrow if cleared medically and she is stable for discharge.
--- NOTE | 2024-11-01 10:18 | P.GSCN ---
History of Present Illness Consult date: 11/01/24 Reason for Consult: Urinary retention History of present illness: This is a 74-year-old female status post lumbar fusion at L3-L5 on October 28. Urologist consulted for urinary retention. Ray catheter was removed yesterday, patient was unable to void subsequently a Ray catheter was reinserted. At baseline she does complain of a weak stream straining to void and sensation of incomplete bladder emptying. She also has history of recurrent UTIs indicated she followed up with Dr. Molina in the past. She does have previous history of urinary retention. Review of Systems - Constitutional Denies fever, Denies weight loss - EENT Ears, nose, mouth and throat: Denies dysphagia - Cardiovascular Denies chest pain, Denies shortness of breath - Respiratory Denies cough, Denies 7 - Gastrointestinal Reports as per HPI - Genitourinary Genitourinary: Reports difficulty voiding - Integumentary Denies rash, Denies unusual bruising Past Medical History Past Medical History: Asthma, Diabetes Mellitus, GERD/Reflux, Mitral Valve Prolapse (MVP) Additional Past Medical History / Comment(s): currently being tx w/ Macrobid for UTI,chronic back pain-3 deteriorating discs,tachycardia History of Any Multi-Drug Resistant Organisms: None Reported Past Surgical History: Cholecystectomy, Orthopedic Surgery Additional Past Surgical History / Comment(s): 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 Total left knee arthroplasty Past Anesthesia/Blood Transfusion Reactions: No Reported Reaction Additional Past Anesthesia/Blood Transfusion Reaction / Comm: after epidural injection in back had difficulty breathing seen in ER- has had injections since without issue. no hx blood transfusion Past Psychological History: Anxiety, Depression Additional Psychological History / Comment(s): OCD Smoking Status: Never smoker Past Alcohol Use History: None Reported Additional Past Alcohol Use History / Comment(s): SMOKED FOR 18 YRS, LESS THAN 1 PPD, QUIT 1976. Past Drug Use History: None Reported - Past Family History Sister(s) Family Medical History: Cancer Additional Family Medical History / Comment(s): Uterine cancer. Medications and Allergies Home Medications Medication Instructions Recorded Confirmed Type Budesonide [Pulmicort Flexhaler] 2 puff INHALATION RT-BID 01/10/17 10/28/24 History Albuterol Sulfate [Proair 1 puff INHALATION RT-Q6H PRN 04/15/17 10/28/24 History Respiclick] valACYclovir HCL [Valtrex] 500 mg PO 1200 04/15/17 10/28/24 History Cetirizine HCl [Zyrtec] 10 mg PO 1200 05/18/17 10/28/24 History Fluticasone Nasal [place] [Flonase 1 spray EA NOSTRIL DAILY 05/18/17 10/28/24 History Nasal [place]] Omeprazole Magnesium [PriLOSEC OTC] 20 mg PO 1200 05/18/17 10/28/24 History busPIRone HCL 15 mg PO BID 05/25/18 10/28/24 History Atorvastatin [Lipitor] 10 mg PO 1200 02/15/21 10/28/24 History Multivitamins, Thera [Multivitamin 1 tab PO DAILY 02/15/21 10/28/24 History (formulary)] Sertraline [Zoloft] 25 mg PO 1200 02/15/21 10/28/24 History dilTIAZem HCL [dilTIAZem HCL 12Hr 120 mg PO BID 04/05/21 10/28/24 History ER] metFORMIN HCL 500 mg PO BID 04/05/21 10/28/24 History ALPRAZolam [Xanax] 0.25 mg PO BID PRN 10/22/24 10/28/24 History Aspirin [Adult Low Dose Aspirin EC] 81 mg PO DAILY 10/22/24 10/28/24 History Citalopram Hydrobromide [CeleXA] 10 mg PO DAILY@1200 10/22/24 10/28/24 History Donepezil HCl [Aricept] 10 mg PO HS 10/22/24 10/28/24 History Glimepiride [Amaryl] 2 mg PO BID 10/22/24 10/28/24 History Memantine [Namenda] 10 mg PO BID 10/22/24 10/28/24 History Pioglitazone HCl 15 mg PO DAILY@1200 10/22/24 10/28/24 History Protriptyline HCl [Vivactil] 10 mg PO DAILY@1200 10/22/24 10/28/24 History traMADol HCL 50 mg PO Q6H PRN 10/22/24 10/28/24 History Nitrofurantoin Monohyd/M-Cryst 100 mg PO Q12HR 10/23/24 10/28/24 History [Macrobid] Baclofen 10 mg PO TID PRN #90 tab 10/30/24 Rx HYDROcodone/APAP 5-325MG [[place] 5] 1 each PO Q4HR PRN #42 tab 10/30/24 Rx Allergies Allergy/AdvReac Type Severity Reaction Status Date / Time lactose Allergy Nausea & Verified 10/28/24 07:41 Vomiting & Diarrhea levofloxacin [From Levaquin] Allergy Rash/Hives Verified 10/28/24 07:41 metronidazole [From Flagyl] Allergy Rash/Hives Verified 10/28/24 07:41 Sulfa (Sulfonamide Allergy Rash/Hives Verified 10/28/24 07:41 Antibiotics) Surgical - Exam Vital Signs Temp Pulse Resp BP Pulse Ox 97.0 F L 90 16 179/80 97 10/28/24 07:55 10/28/24 07:55 10/28/24 07:55 10/28/24 07:55 10/28/24 07:55 - General no distress, no pain - Eyes normal ocular movement, no pale - ENT normal nares, normal mucosa - Respiratory normal expansion, normal respiratory effort - Abdomen Abdomen: soft, non tender - Psychiatric oriented to time, oriented to person, oriented to place Results - Labs 10/31/24 04:20 10/31/24 04:20 Abnormal Lab Results - Last 24 Hours (Table) 11/01/24 Range/Units 06:44 POC Glucose (mg/dL) 139 H (70-110) mg/dL Assessment and Plan Assessment: 74-year-old female status post lumbar fusion as postoperative retention. She does have a component of voiding dysfunction at baseline. This probably worsened due to her deconditioning from surgery and pain. At this point recommend keeping the Ray catheter in place, we will also start her on Flomax. She can have a trial of void in 1 week. If she is discharged to rehab this can be done at rehab in 1 week. If still unable to void following her trial of void in 1 week then she should follow-up back with Dr. Molina as an outpatient
[2024-11-01] MEDS: TAMSULOSIN 0.4 MG CAP.ER.24H PO SCH (12:02)
--- NOTE | 2024-11-01 14:03 | P.PN ---
Subjective Interval History: Pleasant 74-year-old patient who follows with Dr. Roman Mcfarlane. Patient underwent lumbar surgery. Postprocedure laying in bed. Slight nausea. Patient states significant low back pain rating down the right leg. Was using cane and a walker. No cardiac history. No chest pain. October 29: Patient having significant pain. Seen by physical therapy. Full assist. Eating about 50-75%. Discussed with patient at the bedside. October 30: Up in a chair. Seen by physical therapy. Was able to pivot to chair. Two-person assist. Oral intake fair. Pain still present. No bowel movement. 10/31/2024 Patient was seen and examined today. Afebrile, heart rate 89 respiratory rate 18, blood pressure 160/75, saturating 92% on room air. Pain is better controlled today. Reported no bowel movement, started on Senokot, MiraLAX, had urinary retention overnight we will continue monitor with bladder management protocol, patient voided 200 mL this morning. WBCs 9.0 hemoglobin 9.2 platelet 286. BMP unremarkable. 11/01/24 Patient was seen and examined today. Pain is controlled. Reported bowel movement today. Tolerating p.o. intake. Orthopedic surgery planning for discharge tomorrow to subacute rehab. Vital stable, blood pressure elevated. Increase Cardizem to 180 mg twice daily. Assessment and plan: Severe spinal stenosis L3-L4, L4-L5, lower extremity right radiculopathy, lower extremity some paresis DJD etc. Followed by laminectomy decompression etc. today by Dr. Cassidy. Pain management. Activity per surgery. October 30: Two-person assist. Up to chair - Diabetes mellitus type 2 on oral hypoglycemic Metformin. Amaryl. Actos. Accu-Cheks with sliding scale - Essential hypertension Cardizem--increased to 180 mg twice daily - Anxiety depression BuSpar. Zoloft. Xanax - Acute postprocedure blood loss anemia expected from surgery Ferrous sulfate - GERD Prilosec - Cognitive impairment Namenda. Aricept. - COPD no prior smoker Pulmicort. Albuterol as needed - Hyperlipidemia Lipitor DVT prophylaxis: Per orthopedics. Monitor vital signs and labs Labs and medication were reviewed. Continue same treatment. Further recommendations as per clinical course of the patient PHYSICAL EXAMINATION: GENERAL: The patient is A&O x3, NAD HEENT: EOMI, Sclerae anicteric, Moist Mucous membranes Neck: Supple, Non tender, No JVD PULMONARY: Equal breath souds B/L, No wheezing, No crackles. CARDIOVASCULAR: S1, S2 present. No murmurs, rubs, or gallops. ABDOMEN: Soft, nontender, nondistended, normoactive bowel sounds. No guarding or rebound tenderness. MUSCULOSKELETAL: No edema, No cyanosis. No clubbing. Normal ROM. Intact peripheral pulses. NEUROLOGICAL: CN 2-12 grossly intact. No FND Skin: No Rash REVIEW OF SYSTEMS: CONSTITUTIONAL: No fever or chills. CARDIOVASCULAR: No chest pain, palpitations or syncope. PULMONARY: No shortness of breath, no cough, sore throat. GASTROINTESTINAL: No nausea, vomiting, diarrhea, abdominal pain. : No Dysuria, urgency, frequency. Extremities: No edema. NEUROLOGICAL: No headaches, no weakness, or numbness Dictation was produced using [employer] dictation software. please excuse any grammatical, word or spelling errors. Objective - Vital Signs Vital signs: Vital Signs Temp 98.3 F 11/01/24 07:50 Pulse 95 11/01/24 07:50 Resp 16 11/01/24 07:50 BP 168/80 11/01/24 07:50 Pulse Ox 95 11/01/24 07:50 FiO2 Intake & Output 10/31/24 11/01/24 11/01/24 18:59 06:59 18:59 Intake Total 1080 Output Total 1375 1550 Balance -1375 -470 Intake: Oral 1080 Output: Urine 1375 1550 Straight 550 Uretheral (Ray) 475 Other: # Voids 2 # Bowel Movements 0 1 - Labs CBC & Chem 7: 10/31/24 04:20 10/31/24 04:20 Labs: Abnormal Lab Results - Last 24 Hours (Table) 11/01/24 Range/Units 06:44 POC Glucose (mg/dL) 139 H (70-110) mg/dL
[2024-11-01] MEDS: DILTIAZEM CD 180 MG CAP.ER.24H PO SCH (21:39)
[2024-11-02 07:01] LABS: Glucose,Whole Blood 149 mg/dL (70-110)
[2024-11-02 08:57] VITALS: BP 151/88; PULSE 90; RESP 17; TEMP 98.4
--- NOTE | 2024-11-02 10:46 | P.DS ---
Providers Date of admission: 10/28/24 06:29 Expected date of discharge: 11/02/24 Attending physician: Malena Cassidy Consults: 10/28/24 16:14 Consult Physician Routine Consulting Provider: Freddy Young Consult Reason/Comments: Medical Management Do you want consulting provider notified?: Yes 10/31/24 23:17 Consult Physician Routine Consulting Provider: Adolph Meza Consult Reason/Comments: Retention Do you want consulting provider notified?: Yes, Notify in am Primary care physician: Roman Mcfarlane - Discharge Diagnosis(es) (1) Post-op pain Current Visit: Yes Status: Acute (2) S/P lumbar fusion Current Visit: Yes Status: Acute (3) Spinal stenosis Current Visit: Yes Status: Acute Hospital Course: This is a 74-year-old female with history of low back pain, lumbar stenosis and spondylolysis. She has had increasing pain over the past several months. She presented to discuss surgical options. After discussion and consideration patient lacks proceed with posterior lumbar decompression and fusion with transforaminal interbody fusion of L3-4, L4-5. The patient is admitted to [facility] on 10/28/2024 for the procedure. The patient had difficulty with pain management postoperatively. She has been having a difficult time with activity and ambulation. On postoperative day #4 the patient is able to get up with assistance. She is only getting to the chair and commode at this time. It is recommended she be transferred to inpatient rehab. The patient is transferred to inpatient rehab in stable condition. She may continue to progress with activity as tolerated. She is encouraged to ambulate is much as she can. Please see med rec for accurate list of home medications. Patient is seen and examined today. She is now postoperative day #5 status post minimally invasive decompression fusion L3-4 L4-5 for her severe spinal stenosis and low back pain with lower EXTR radiculopathy. She has been very slow to mobilize postoperatively. She had her Ray replaced again this weekend. We will discontinue that again today as she needs to mobilize further. I had a long discussion with her with her at bedside. I gave her some activities that she can do while in bed to try to increase her mobility and her strength. It is okay for to her to ambulate is much as she is able but we need to get her out of bed further. She is still unsafe with any sort of transferring on her own and she is at significant increased risk of falling currently. I think that she needs to be transferred to inpatient rehab or [facility] for continued daily physical therapy and mobilization. Her back surgical site is clear and appears stable without any evidence of complication. It is okay for her to mobilize and increase her activity and ambulate as tolerated. Plan - Discharge Summary Discharge Rx Participant: No New Discharge Prescriptions: New Baclofen 10 mg PO TID PRN #90 tab PRN Reason: Spasms Ferrous Sulfate [Iron (65 MG Elemental)] 325 mg PO W/LUNCH tab HYDROcodone/APAP 5-325MG [[place] 5] 1 each PO Q4HR PRN #42 tab PRN Reason: Pain Tamsulosin [Flomax] 0.4 mg PO DAILY cap Continue Budesonide [Pulmicort Flexhaler] 2 puff INHALATION RT-BID valACYclovir HCL [Valtrex] 500 mg PO 1200 Albuterol Sulfate [Proair Respiclick] 1 puff INHALATION RT-Q6H PRN PRN Reason: Shortness Of Breath Omeprazole Magnesium [PriLOSEC OTC] 20 mg PO 1200 Cetirizine HCl [Zyrtec] 10 mg PO 1200 Fluticasone Nasal [place] [Flonase Nasal [place]] 1 spray EA NOSTRIL DAILY busPIRone HCL 15 mg PO BID Atorvastatin [Lipitor] 10 mg PO 1200 Pioglitazone HCl 15 mg PO DAILY@1200 Sertraline [Zoloft] 25 mg PO 1200 Multivitamins, Thera [Multivitamin (formulary)] 1 tab PO DAILY dilTIAZem HCL [dilTIAZem HCL 12Hr ER] 120 mg PO BID metFORMIN HCL 500 mg PO BID Memantine [Namenda] 10 mg PO BID Donepezil HCl [Aricept] 10 mg PO HS Aspirin [Adult Low Dose Aspirin EC] 81 mg PO DAILY Glimepiride [Amaryl] 2 mg PO BID Protriptyline HCl [Vivactil] 10 mg PO DAILY@1200 Citalopram Hydrobromide [CeleXA] 10 mg PO DAILY@1200 ALPRAZolam [Xanax] 0.25 mg PO BID PRN PRN Reason: Anxiety traMADol HCL 50 mg PO Q6H PRN #4 tab PRN Reason: Pain Discontinued Nitrofurantoin Monohyd/M-Cryst [Macrobid] 100 mg PO Q12HR Discharge Medication List Budesonide [Pulmicort Flexhaler] 2 puff INHALATION RT-BID 01/10/17 [History] Albuterol Sulfate [Proair Respiclick] 1 puff INHALATION RT-Q6H PRN 04/15/17 [History] valACYclovir HCL [Valtrex] 500 mg PO 1200 04/15/17 [History] Cetirizine HCl [Zyrtec] 10 mg PO 1200 05/18/17 [History] Fluticasone Nasal [place] [Flonase Nasal [place]] 1 spray EA NOSTRIL DAILY 05/18/17 [History] Omeprazole Magnesium [PriLOSEC OTC] 20 mg PO 1200 05/18/17 [History] busPIRone HCL 15 mg PO BID 05/25/18 [History] Atorvastatin [Lipitor] 10 mg PO 1200 02/15/21 [History] Multivitamins, Thera [Multivitamin (formulary)] 1 tab PO DAILY 02/15/21 [History] Sertraline [Zoloft] 25 mg PO 1200 02/15/21 [History] dilTIAZem HCL [dilTIAZem HCL 12Hr ER] 120 mg PO BID 04/05/21 [History] metFORMIN HCL 500 mg PO BID 04/05/21 [History] ALPRAZolam [Xanax] 0.25 mg PO BID PRN 10/22/24 [History] Aspirin [Adult Low Dose Aspirin EC] 81 mg PO DAILY 10/22/24 [History] Citalopram Hydrobromide [CeleXA] 10 mg PO DAILY@1200 10/22/24 [History] Donepezil HCl [Aricept] 10 mg PO HS 10/22/24 [History] Glimepiride [Amaryl] 2 mg PO BID 10/22/24 [History] Memantine [Namenda] 10 mg PO BID 10/22/24 [History] Pioglitazone HCl 15 mg PO DAILY@1200 10/22/24 [History] Protriptyline HCl [Vivactil] 10 mg PO DAILY@1200 10/22/24 [History] Baclofen 10 mg PO TID PRN #90 tab 10/30/24 [Rx] HYDROcodone/APAP 5-325MG [[place] 5] 1 each PO Q4HR PRN #42 tab 10/30/24 [Rx] Ferrous Sulfate [Iron (65 MG Elemental)] 325 mg PO W/LUNCH tab 11/02/24 [Rx] Tamsulosin [Flomax] 0.4 mg PO DAILY cap 11/02/24 [Rx] traMADol HCL 50 mg PO Q6H PRN #4 tab 11/02/24 [Rx] Follow up Appointment(s)/Referral(s): Eugenio Landeros, [place] [PHYSICIAN [employer]YING TE[employer]ER] - 2 Weeks (Patient may follow-up with Eugenio Landeros PA-C or Dr. Richmond Cassidy at [facility] in 2-3 weeks following discharge. ) Ambulatory/Diagnostic Orders: Basic Metabolic Panel [LAB.AMB] Location: None Selected Complete Blood Count w/diff [LAB.AMB] Time Frame: 3 Days, Location: None Selected Activity/Diet/Wound Care/Special Instructions: 1. Patient may shower with Optifoam dressing intact. 2. Patient may remove Optifoam dressing in 3 days and shower without a dressing at that time. 3. Patient should refrain from driving until at least after their first follow- up appointment in the office. 4. Patient should avoid excessive bending, twisting, lifting; avoid overhead lifting; no lifting greater than 10 pounds 5. Take medications as prescribed 6. Patient should avoid anti-inflammatory medications over the next 6 weeks postoperatively 7. Do not soak in tub Discharge Disposition: TRANSFER TO SNF/ECF
[2024-11-02 11:15] LABS: African American GFR (CKD) >90 (>60 ml/min/1.73 sqM); Anion Gap 9 mmol/L; Blood Urea Nitrogen 10 mg/dL (7-17); Calcium 8.4 mg/dL (8.4-10.2); Carbon Dioxide 25 mmol/L (22-30); Chloride 103 mmol/L (98-107); Glucose 139 mg/dL (74-99); Non-African American GFR(CKD) >90 (>60 ml/min/1.73 sqM); Potassium 3.4 mmol/L (3.5-5.1); Sodium 137 mmol/L (137-145)
[2024-11-02 12:06] LABS: Appearance,Urine Clear (Clear); Bilirubin,Urine Negative (Negative); Blood,Urine Negative (Negative); Color,Urine Light Yellow; Glucose,Urine (UA) Negative (Negative); Ketones,Urine Negative (Negative); Leukocyte Esterase,Urine Negative (Negative); Nitrite,Urine Negative (Negative); Protein,Urine Negative (Negative); Specific Gravity,Urine 1.005 (1.001-1.035); Urobilinogen,Urine <2.0 mg/dL (<2.0)
[2024-11-02] MEDS: POTASSIUM CHLORIDE ER 20 MEQ TAB.ER PO STA (12:58)
== END 2024-11-02 14:36 | DRG 427 ==
LOC: OR 06:28 → 4SSUR 06:29 → OR 06:29 → 4SSUR 12:04
PROVIDERS: ADMIT Orthopaedic Surgery Orthopaedic Surgery of the Spine; ATTEND Orthopaedic Surgery Orthopaedic Surgery of the Spine
PROC: 0SG1071 Fusion of 2 or more Lumbar Vertebral Joints with Autologous Tissue Substitute, Posterior Approach, Posterior Column, Open Approach (ICD-10-PCS; 2024-10-28)
PROC: 0SB20ZZ Excision of Lumbar Vertebral Disc, Open Approach (ICD-10-PCS; 2024-10-28)
PROC: 01NB0ZZ Release Lumbar Nerve, Open Approach (ICD-10-PCS; 2024-10-28)
PROC: 4A11X4G Monitoring of Peripheral Nervous Electrical Activity, Intraoperative, External Approach (ICD-10-PCS; 2024-10-28)
PROC: 8E0WXBG Computer Assisted Procedure of Trunk Region, With Computerized Tomography (ICD-10-PCS; 2024-10-28)
PROC: 07DS3ZZ Extraction of Vertebral Bone Marrow, Percutaneous Approach (ICD-10-PCS; 2024-10-28)
PROC: 0SG10AJ Fusion of 2 or more Lumbar Vertebral Joints with Interbody Fusion Device, Posterior Approach, Anterior Column, Open Approach (ICD-10-PCS; principal; 2024-10-28 08:30)
DX: M51.16 Intervertebral disc disorders with radiculopathy, lumbar region (principal); D62 Acute posthemorrhagic anemia; E11.9 Type 2 diabetes mellitus without complications; J44.89 Other specified chronic obstructive pulmonary disease; F32.A Depression, unspecified; I10 Essential (primary) hypertension; I34.1 Nonrheumatic mitral (valve) prolapse; M48.062 Spinal stenosis, lumbar region with neurogenic claudication; R53.1 Weakness; M47.819 Spondylosis without myelopathy or radiculopathy, site unspecified; K21.9 Gastro-esophageal reflux disease without esophagitis; E78.5 Hyperlipidemia, unspecified; M47.26 Other spondylosis with radiculopathy, lumbar region; F41.9 Anxiety disorder, unspecified; F42.9 Obsessive-compulsive disorder, unspecified; Z79.82 Long term (current) use of aspirin; Z79.84 Long term (current) use of oral hypoglycemic drugs; Z79.899 Other long term (current) drug therapy; Z87.440 Personal history of urinary (tract) infections; Z96.652 Presence of left artificial knee joint; G89.29 Other chronic pain; Z90.49 Acquired absence of other specified parts of digestive tract; Z88.1 Allergy status to other antibiotic agents; Z88.2 Allergy status to sulfonamides
CPT/HCPCS: 72100; 80048; 81003; 85025; 86891; 94640; 94760